=== PATIENT | female | born 1980 | race Native Hawaiian/Other Pacific Islander ===

== ENCOUNTER → 2020-03-31 12:59 | Outpatient (BNVA) | payer OTHER, SELFPAY | PROVIDERS: PCP Internal Medicine; Visit Provider Physician Assistant | DX: E66.9 Obesity, unspecified (principal); Z98.84 Bariatric surgery status | CPT/HCPCS: 99214; Q3014 ==

== ENCOUNTER → 2020-04-07 14:07 | Outpatient (BNVA) | payer OTHER, SELFPAY | PROVIDERS: PCP Internal Medicine; Referring Provider Internal Medicine; Visit Provider Physician Assistant | DX: E66.9 Obesity, unspecified (principal); Z68.36 Body mass index [BMI] 36.0-36.9, adult; Z98.84 Bariatric surgery status | CPT/HCPCS: 99213; Q3014 ==

== ENCOUNTER → 2020-04-08 15:04 | Outpatient (BNVA) | payer OTHER, SELFPAY | PROVIDERS: PCP Internal Medicine; Visit Provider Physician Assistant | DX: Z76.89 Persons encountering health services in other specified circumstances (principal) ==

== ENCOUNTER → 2020-04-26 10:10 | Outpatient (BNVA) | payer OTHER, SELFPAY | PROVIDERS: PCP Internal Medicine; Visit Provider Physician Assistant | DX: Z01.89 Encounter for other specified special examinations (principal) | CPT/HCPCS: 99211 ==

== ENCOUNTER → 2020-05-17 09:32 | Outpatient (BNVA) | payer OTHER, SELFPAY | PROVIDERS: PCP Internal Medicine; Referring Provider Internal Medicine; Visit Provider Physician Assistant | DX: Z76.89 Persons encountering health services in other specified circumstances (principal) ==

== ENCOUNTER → 2020-05-25 09:04 | Outpatient (BNVA) | payer OTHER, SELFPAY | PROVIDERS: PCP Internal Medicine; Visit Provider Physician Assistant | DX: Z76.89 Persons encountering health services in other specified circumstances (principal) ==

== ENCOUNTER 2020-08-03 10:51 | Outpatient (REF) | payer OTHER, SELFPAY ==
--- NOTE | 2020-08-03 11:07 | XR_ITS ---
EXAMINATION: X-RAY BILATERAL KNEES ONE VIEW. X-RAY RIGHT KNEE CLINICAL INFORMATION: Pain. COMPARISON: None. TECHNIQUE: X-ray bilateral knees 1 view. X-ray right knee 2 views. FINDINGS: Right Knee: Borderline medial compartment joint space narrowing. No visible acute fracture or dislocation. Marginal spurring in the patella. Multiple small ossifications along the lateral aspect of the patellofemoral joint, as seen on the skyline view. Small ossification present posteriorly near the fibular head, prominent loose body. Small suprapatellar joint fluid. Left Knee: Mild medial compartment joint space narrowing. Cluster of small calcifications/ossifications adjacent to the medial femoral condyle. No acute fracture is seen. XR/XR knee RT 2V IMPRESSION: RIGHT KNEE: 1. Mild medial and patellofemoral compartment arthritis. 2. Small joint fluid. 3. Multiple loose bodies. 4. No evidence of acute fracture or dislocation. LEFT KNEE: 1. Mild medial compartment arthritis. 2. Cluster of small calcifications/ossifications adjacent to the medial femoral condyle.
--- NOTE | 2020-08-03 11:07 | XR_ITS ---
EXAMINATION: X-RAY BILATERAL KNEES ONE VIEW. X-RAY RIGHT KNEE CLINICAL INFORMATION: Pain. COMPARISON: None. TECHNIQUE: X-ray bilateral knees 1 view. X-ray right knee 2 views. FINDINGS: Right Knee: Borderline medial compartment joint space narrowing. No visible acute fracture or dislocation. Marginal spurring in the patella. Multiple small ossifications along the lateral aspect of the patellofemoral joint, as seen on the skyline view. Small ossification present posteriorly near the fibular head, prominent loose body. Small suprapatellar joint fluid. Left Knee: Mild medial compartment joint space narrowing. Cluster of small calcifications/ossifications adjacent to the medial femoral condyle. No acute fracture is seen. XR/XR knee standing BI IMPRESSION: RIGHT KNEE: 1. Mild medial and patellofemoral compartment arthritis. 2. Small joint fluid. 3. Multiple loose bodies. 4. No evidence of acute fracture or dislocation. LEFT KNEE: 1. Mild medial compartment arthritis. 2. Cluster of small calcifications/ossifications adjacent to the medial femoral condyle.
== END 2020-08-03 10:52 | disposition home or self-care (01) ==
LOC: HO.HOSX 10:51
PROVIDERS: Visit Provider Orthopaedic Surgery
DX: M25.361 Other instability, right knee (principal); M25.362 Other instability, left knee
CPT/HCPCS: 73560; 73565; 99202

== ENCOUNTER → 2020-08-09 09:28 | Outpatient (BNVA) | payer OTHER, SELFPAY | PROVIDERS: PCP Internal Medicine; Visit Provider Physician Assistant | DX: E66.9 Obesity, unspecified (principal) | CPT/HCPCS: 99212 ==

== ENCOUNTER 2020-08-20 08:34 | Outpatient (REF) | payer OTHER, SELFPAY ==
--- NOTE | ~2020-08-20 | XR_ITS ---
EXAMINATION: RIGHT HIP AND THORACIC SPINE X-RAY CLINICAL INFORMATION: Pain. Constipation. COMPARISON: None TECHNIQUE: 2 views of the right hip and 2 views of the thoracic spine FINDINGS: Right hip: Bone alignment is normal. No fracture or dislocation is seen. There is an IUD in the pelvis. Soft tissues are otherwise unremarkable. Thoracic spine: There is mild curvature of the midthoracic spine to the right. Bone alignment is otherwise normal. No fracture or dislocation is seen. Disc spaces are normal. There is mild degenerative spondylosis of the lower thoracic spine. The lung volumes are low. There is a gastric lap band. The paraspinal soft tissues are unremarkable. XR/XR thoracic spine 2V IMPRESSION: Right hip: Unremarkable exam. Thoracic spine: Mild curvature of the midthoracic spine to the right and mild degenerative spondylosis of the lower thoracic spine.
--- NOTE | ~2020-08-20 | XR_ITS ---
EXAMINATION: RIGHT HIP AND THORACIC SPINE X-RAY CLINICAL INFORMATION: Pain. Constipation. COMPARISON: None TECHNIQUE: 2 views of the right hip and 2 views of the thoracic spine FINDINGS: Right hip: Bone alignment is normal. No fracture or dislocation is seen. There is an IUD in the pelvis. Soft tissues are otherwise unremarkable. Thoracic spine: There is mild curvature of the midthoracic spine to the right. Bone alignment is otherwise normal. No fracture or dislocation is seen. Disc spaces are normal. There is mild degenerative spondylosis of the lower thoracic spine. The lung volumes are low. There is a gastric lap band. The paraspinal soft tissues are unremarkable. XR/XR hip RT min 2V IMPRESSION: Right hip: Unremarkable exam. Thoracic spine: Mild curvature of the midthoracic spine to the right and mild degenerative spondylosis of the lower thoracic spine.
[2020-08-20 09:42] LABS: MANUAL DIFF FLAG NO
[2020-08-20 09:48] LABS: Basophils Percent Auto 0.3 % (0-2); Eosinophils Absolute Auto 0.1 X10*3/uL (0.0-0.4); Eosinophils Percent Auto 1.6 % (0-4); Hematocrit 39.9 % (37-47); Hemoglobin 13.5 g/dl (12.0-16.0); Imm Gran Abs Auto 0.01 X10*3/uL (0.00-0.03); Imm Gran Pct Auto 0.2 % (0.0-0.4); Lymphocytes Absolute Auto 2.6 X10*3/uL (1.2-4.9); Lymphocytes Percent Auto 41.1 % (20-40); Mean Corpuscular HGB Conc 33.8 g/dl (31.0-35.0); Mean Corpuscular Hemoglobin 30.2 pg (27.0-33.0); Mean Corpuscular Volume 89.3 fL (80-98); Mean Platelet Volume 9.9 fL (9.4-12.3); Monocytes Absolute Auto 0.5 X10*3/uL (0.1-1.2); Monocytes Percent Auto 8.1 % (2-11); Neutrophils Percent Auto 48.7 % (45-73); Platelet Count 261 X10*3/uL (160-400); Red Blood Count 4.47 X10*6/uL (4.20-5.50); Red Cell Distribution Width 12.2 % (11.0-16.0); White Blood Count 6.2 X10*3/uL (4.8-10.8)
[2020-08-20 10:24] LABS: Alanine Aminotransferase 21 U/L (0-31); Albumin Level 4.1 g/dL (3.5-5.0); Alkaline Phosphatase 51 U/L (39-117); Anion Gap 12 (12-20); Aspartate Amino Transferase 15 U/L (5-31); Bilirubin Total 0.7 mg/dL (0.0-1.0); Blood Urea Nitrogen 12 mg/dL (9-16); Carbon Dioxide 29 mmol/L (22-29); Chloride 103 mmol/L (96-108); Cholesterol 162 mg/dL; Estimated Glomerular Filt Rate > 60; Glucose Random 87 mg/dL (60-115); HDL Cholesterol 48 mg/dL; LDL Cholesterol Calculated 100 mg/dl; Potassium 3.9 mmol/L (3.3-5.1); Sodium 140 mmol/L (135-145); Total Protein 6.8 g/dL (6.5-8.0); Triglycerides 73 mg/dL
[2020-08-20 10:47] LABS: Thyroid Stimulating Hormone 1.41 uIU/mL (0.32-4.0); Vitamin D 25-OH Total 19.7 ng/mL (>30)
[2020-08-20 10:51] LABS: Erythrocyte Sedimentation Rate 13 MM/HR (0-20)
[2020-08-22 04:29] LABS: Folate 16.8 ng/mL (> or = 4.0); Vitamin B12 215 pg/mL (200-900)
== END 2020-08-20 08:35 | disposition home or self-care (01) ==
LOC: HO.LAB 08:34
PROVIDERS: PCP Internal Medicine; Visit Provider Internal Medicine
DX: K59.00 Constipation, unspecified (principal); E78.00 Pure hypercholesterolemia, unspecified
CPT/HCPCS: 36415; 72070; 73502; 80053; 80061; 82306; 82607; 82746; 84439; 84443; 85025; 85652

== ENCOUNTER 2020-08-30 10:08 | Emergency (ER) | payer OTHER, SELFPAY ==
--- NOTE | ~2020-08-30 | XR_ITS ---
EXAMINATION: XR LUMBOSACRAL SPINE CLINICAL INFORMATION: Pain COMPARISON: None TECHNIQUE: Lumbar spine is imaged in 4 views. FINDINGS: There is normal lumbar segmentation with 5 nonrib-bearing lumbar vertebrae of normal height and normal lumbar lordosis. There is no lumbar vertebral compression, spondylolisthesis, destructive process, or paraspinal soft tissue swelling. There is borderline disc narrowing L3-L4. Lateral view may suggest L5 spondylolysis. The SI joints and visualized sacrum are unremarkable. There are surgical clips right upper quadrant likely from prior cholecystectomy. In addition, gastric lap band is present. XR/XR lumbar spine 2-3V IMPRESSION: 1. Borderline disc narrowing L3-L4. 2. No lumbar vertebral compression or spondylolisthesis. 3. Possible L5 spondylolysis.
[2020-08-30 10:12] VITALS: BP 129/79; PULSE 74; RESP 16; TEMP 36.6; O2SAT 98; BMI 42.7
--- NOTE | 2020-08-30 11:40 | ED_ITS ---
HPI - Back Pain/Injury General Chief Complaint: Back Pain/Injury Stated Complaint: back pain going down leg Time Seen by Provider: 08/30/20 11:38 Source: patient and old records reviewed Mode of arrival: ambulatory Limitations: no limitations History of Present Illness HPI Narrative: R sided back pain has had issues x 2 days atraumatic R lower back pain radiates down to buttock - no b/b incontinence, no saddle anesthesia, no IVDA, no AC therapy MD elicited complaint: back pain Pertinent past history: prior back pain Onset (ago): day(s) (1) Timing: constant Severity: moderate Quality: sharp Location: lumbar spine and sacrum Radiation: buttocks and right upper leg Relieving factors: movement Associated symptoms: denies other symptoms Related Data Home Medications Medication Instructions Recorded Confirmed albuterol sulfate 90 mcg/actuation 1 puff INHALATION QID 03/29/20 08/18/20 aerosol inhaler cetirizine 10 mg capsule 10 mg PO DAILY 03/29/20 08/18/20 cholecalciferol (vitamin D3) 50 50 mcg PO DAILY 03/29/20 08/18/20 mcg (2,000 unit) capsule multivitamin 1 tab PO DAILY 03/29/20 08/18/20 zinc 50 mg tablet 50 mg PO DAILY 03/29/20 08/18/20 Previous Rx's Medication Instructions Recorded fluticasone 250 mcg-salmeterol 50 1 inh INHALATION BID #60 ea 08/18/20 mcg/dose blistr powdr for inhalation psyllium husk (aspartame) 3.4 2.69456 g PO DAILY #660 g 08/18/20 gram/5.8 gram oral powder cyclobenzaprine 10 mg PO TID PRN #14 tab 08/30/20 ibuprofen 600 mg PO Q6H PRN #30 tab 08/30/20 lidocaine 1 patch TOPICAL DAILY PRN #10 ea 08/30/20 prednisone 40 mg PO DAILY 4 Days #8 tab 08/30/20 Allergies Allergy/AdvReac Type Severity Reaction Status Date / Time seafood Allergy Unknown swelling/hi Verified 08/18/20 16:52 ves shellfish derived Allergy Unknown HIVES,SWELL Verified 08/18/20 16:52 [SHELLFISH DERIVED] ING dust mites Allergy Unknown Rash Uncoded 08/18/20 16:52 Latex Allergy Unknown Rash Uncoded 08/18/20 16:52 pollen Allergy Unknown Sneezing Uncoded 08/18/20 16:52 shellfish Allergy Unknown Hives Uncoded 08/18/20 16:52 Review of Systems Review of Systems: Constitutional : No Weight loss, No Fever, No Chills, ENT/Mouth : No Hearing loss, No Ear Pain, No Nasal Congestion, No Sinus Pain, No Hoarseness, No sore throat, No Rhinorrhea, No Swallowing Difficulty Cardiovascular : No Chest Pain, No SOB Respiratory : No Cough, No Dyspnea Gastrointestinal : No Nausea, No Vomiting, No Diarrhea, No abdominal Pain, No Hematochezia, No Melena Genitourinary : No Dysuria, No Urinary Frequency, No Hematuria, No Urinary Incontinence, Musculoskeletal : positive back pain Skin : No Skin Lesions, No rash Neuro : No Weakness, No Numbness, No Paresthesias, no loss of bowel or bladder incontinence, no saddle anesthesia PMFSH Past Medical History Attestation statement: The following information was validated with the patient. Medical History Anxiety and depression Carpal tunnel syndrome, right Depression Gestational diabetes H. pylori duodenitis Iron deficiency anemia Talar fracture Ulnar neuropathy Vitamin D deficiency Surgical History H/O: Hx laparoscopic cholecystectomy Hx of laparoscopic gastric banding Family History Family History (Updated 08/18/20 @ 16:55 by Flores Cesar MD) Father Diabetes HTN (hypertension) AA (alcohol abuse) Stomach ulcer Cirrhosis Substance abuse Mother No problems noted. 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 Oriented X3. No acute distress. Eyes: Pupils equal, round and reactive to light. ENT: Pharynx normal. Neck: Normal inspection. Neck supple. CVS: Normal heart rate and rhythm. Pulses normal. Respiratory: No respiratory distress. Breath sounds normal. Abdomen: Soft and nontender. Back: R lower lateral lumbar pain ttp over R buttock, patient in til position Skin: Skin warm and dry. Normal skin color. Normal skin turgor. Extremities: No lower extremity edema. No calf ttp Neuro: Oriented X 3. No motor deficit. No sensory deficit. MDM - Back Pain/Injury MDM Narrative Medical decision making narrative: 40 yo female with hx of recent joint pain c/o nontraumatic R sided back pain radiating down to leg, no b/b incontinence, no saddle anesthesia, no IVDA, no AC therapy likely sciatica start on NSAIDs, lidocaine patch, steroids, muscle relaxers, discussed PT and chiropractor Discharge Plan Discharge Clinical Impression: Sciatica Qualifiers: Laterality: right Qualified Code(s): M54.31 - Sciatica, right side Patient Disposition: Home, Self-Care Instructions: Sciatica (ED) Additional Instructions: return to ED for any worsening symptoms or concerns YOU SHOULD SEE A CHIROPRACTOR xray findings: FINDINGS: There is normal lumbar segmentation with 5 nonrib-bearing lumbar vertebrae of normal height and normal lumbar lordosis. There is no lumbar vertebral compression, spondylolisthesis, destructive process, or paraspinal soft tissue swelling. There is borderline disc narrowing L3-L4. Lateral view may suggest L5 spondylolysis. The SI joints and visualized sacrum are unremarkable. There are surgical clips right upper quadrant likely from prior cholecystectomy. In addition, gastric lap band is present. XR/XR lumbar spine 2-3V IMPRESSION: 1. Borderline disc narrowing L3-L4. 2. No lumbar vertebral compression or spondylolisthesis. 3. Possible L5 spondylolysis. Prescriptions: New cyclobenzaprine 10 mg tablet 10 mg PO TID PRN (Reason: muscle spasm) Qty: 14 RF: 0 lidocaine 4 % adhesive patch,medicated 1 patch topical DAILY PRN (Reason: pain) Qty: 10 RF: 0 ibuprofen 600 mg tablet 600 mg PO Q6H PRN (Reason: pain) Qty: 30 RF: 0 prednisone 20 mg tablet 40 mg PO DAILY 4 Days Qty: 8 RF: 0 No Action fluticasone propion-salmeterol [Advair Diskus] 250-50 mcg/dose blister with device 1 inh inhalation BID Qty: 60 RF: 5 Metamucil [facility] Fiber 3.4 gram/5.8 gram powder 2.06842 g PO DAILY Qty: 660 RF: 3 multivitamin Tablet 1 tab PO DAILY RF: 0 Zyrtec 10 mg capsule 10 mg PO DAILY RF: 0 cholecalciferol (vitamin D3) 50 mcg (2,000 unit) capsule 50 mcg PO DAILY RF: 0 zinc 50 mg tablet 50 mg PO DAILY RF: 0 albuterol sulfate [ProAir HFA] 90 mcg/actuation HFA aerosol inhaler 1 puff inhalation QID RF: 0 Stand Alone Forms: Work/School Release
[2020-08-30] MEDS: Cyclobenzaprine HCl 10 MG TABLET PO (12:05)
[2020-08-30] MEDS: predniSONE 20 MG TABLET 60 MG PO (12:05)
[2020-08-30] MEDS: Ketorolac Tromethamine 60 MG/2 ML VIAL IM (12:06)
== END 2020-08-30 12:22 | disposition home or self-care (01) ==
PROVIDERS: Emergency Provider Emergency Medicine; PCP Internal Medicine
DX: M54.31 Sciatica, right side (principal); M79.661 Pain in right lower leg
CPT/HCPCS: 72100; 96372; 99283; J1885

== ENCOUNTER 2020-09-01 12:48 | Outpatient (REF) | payer OTHER, SELFPAY ==
[2020-09-01 13:51] LABS: Glucose Urine UA NEG (NEG); Leukocyte Esterase Urine NEG (NEG); Nitrite Urine NEG (NEG); Urine Blood 3+ (NEG); Urine Ketones NEG (NEG); Urine Protein NEG (NEG-TRACE)
[2020-09-01 13:54] LABS: Appearance Urine CLEAR; Color Urine STRAW
[2020-09-01 14:06] LABS: Amorphous Sediment Urine 2+ /LPF; Bacteria Urine TRACE /LPF; Squamous Epithelial Cell Urine 3+ /LPF; WBC Urine 0 /HPF (0-4)
== END 2020-09-01 12:49 | disposition home or self-care (01) ==
LOC: HO.LAB 12:48
PROVIDERS: PCP Internal Medicine; Visit Provider Internal Medicine
DX: R39.89 Other symptoms and signs involving the genitourinary system (principal)
CPT/HCPCS: 81001

== ENCOUNTER 2020-09-02 08:59 | Outpatient (REF) | payer OTHER, SELFPAY ==
--- NOTE | ~2020-09-02 | XR_ITS ---
EXAMINATION: XR ABDOMEN KUB CLINICAL INDICATION: Other symptoms and signs involving the genitourinary system COMPARISON: None TECHNIQUE: AP view of the abdomen. FINDINGS: There is a gastric lap band. Phi angle measures 45 degrees which is normal. There is a 4 mm radiopaque density projecting over the medial lower pole of the right kidney questionable for a stone. There are small bilateral pelvic calcifications. These may represent calcified phleboliths. There is an IUD in the pelvis. There is evidence of previous cholecystectomy. Bowel gas pattern is normal. There is no free air. Bony structures are normal. XR/XR KUB IMPRESSION: Question right lower pole renal stone. Gastric lap band. IUD.
== END 2020-09-02 09:00 | disposition home or self-care (01) ==
LOC: HO.XRAY 08:59
PROVIDERS: PCP Internal Medicine; Visit Provider Surgery
DX: R39.89 Other symptoms and signs involving the genitourinary system (principal)
CPT/HCPCS: 74018

== ENCOUNTER 2020-09-19 16:21 | Outpatient (REF) | payer OTHER, SELFPAY ==
--- NOTE | ~2020-09-19 | US_ITS ---
EXAMINATION: US RETROPERITONEAL LIMITED (RENAL ONLY) CLINICAL INFORMATION: Calculus of kidney. COMPARISON: X-ray abdomen KUB 09/02/2020. CT abdomen 08/26/2007. TECHNIQUE: Real-time imaging of the kidneys. FINDINGS: RIGHT KIDNEY: 11.5 x 6.3 x 5.6 cm (SAG x AP x TRV). The kidney is normal in size, contour, and echogenicity. Renal cortical thickness is normal. No focal parenchymal lesions or hydronephrosis. There is a nonobstructive echogenic stone lower pole measuring 0.2 x 0.2 cm LEFT KIDNEY: 11.7 x 5.1 x 5.9 cm (SAG x AP x TRV). The kidney is normal in size, contour, and echogenicity. Renal cortical thickness is normal. No focal parenchymal lesions or hydronephrosis. There is an echogenic midpole stone measuring 0.2 x 0.2 cm. A few scattered echogenic foci with twinkle artifacts seen in the upper pole. US/US renal BI IMPRESSION: Nonobstructive bilateral small renal calculi. No hydronephrosis seen.
== END 2020-09-19 16:22 | disposition home or self-care (01) ==
LOC: HO.US 16:21
PROVIDERS: PCP Internal Medicine; Visit Provider Internal Medicine
DX: N20.0 Calculus of kidney (principal)
CPT/HCPCS: 76775

== ENCOUNTER → 2020-09-26 14:21 | Outpatient (BNVA) | payer OTHER, SELFPAY | PROVIDERS: PCP Internal Medicine; Visit Provider Surgery | DX: E66.9 Obesity, unspecified (principal); Z68.38 Body mass index [BMI] 38.0-38.9, adult | CPT/HCPCS: 99212 ==

== ENCOUNTER → 2020-09-28 09:51 | Outpatient (BNVA) | payer OTHER, SELFPAY | PROVIDERS: PCP Internal Medicine; Visit Provider Urology | DX: Z13.89 Encounter for screening for other disorder (principal) | CPT/HCPCS: 99202 ==

== ENCOUNTER 2020-09-29 16:00 | Outpatient (RCR) | payer OTHER, SELFPAY ==
--- NOTE | 2020-08-18 19:54 | MHC.PT.EP ---
[facility] [place] Office [place] Office [place] Office [address] Fidencio Hutchison [address] [phone] F: [phone] F: [phone] F: [phone] F: [phone] Physical Therapy Plan of Care Date of Evaluation: 08/18/20 Date of Surgery: Diagnosis: B knee instability Assessment: Pt is a 40 y/o female [employer] referred to PT for eval and treat of B knee instability following long Hx of B knee pain resulting in decreased tolerance for squatting activities, negotiating stairs, performing fitness activities for her healthy weight loss goals, performing heavy HH chores, standing and walking for increased duration as well as 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 Pt is deemed an appropriate candidate to receive skilled PT in order to address her physical limitations to improve her functional ability. Frequency and Duration: The patient will be seen 2 x / wk x 6 wks. Short Term Goals: In 1 week: initiate HEP with evidence of compliance. In 3 weeks: improve baseline pain with activity to < 4/10, initial 7/10. Fdc Goals: In 6 weeks: improve B knee extension MMT to > 4+/5, initial: 4/5 limited by pain. In 6 week: Pt will be able to perform heavy HH chores with at most a little bit of difficulty; initial: quite a bit of difficulty (LEFI). \ In 6 weeks: I with HEP. In 6 weeks: improve B glute medius MMT to > 4+/5, initial 4/5. Treatment Plan: Modalities to reduce pain, spasms and effusion. Manual therapy to restore motion and function. Therapeutic exercise to improve strength and flexibility. Neuromuscular re-education for posture and balance. Therapeutic activities to return to functional activities of daily living. Electronically signed by: Dave Rapp PT. Please sign and return to therapist. Thank you for your referral.
--- NOTE | 2020-09-29 18:10 | MHC.PT.DC ---
Addendum entered and electronically signed by Dave Rapp PT 09/29/20 18:14: Note: Lower Extremity Functional Index questionnaire improved from 49% subjective ability on evaluation to 92% at [facility]. Original Note: [facility] Office [place] Office [place] Office [address] Fidencio Hutchison 140 [facility] [phone] F: [phone] F: [phone] F: [phone] F: [phone] Physical Therapy Discharge Report Diagnosis: B knee instability Date of Surgery: Date of Evaluation: 08/18/20 Date of Discharge: 09/29/20 Treatments to Date: 12 Cancellations to Date: 0 No Shows to Date: 0 Discharge Status: Achieved Goals Improved Function Independent with HEP Discharge Summary: Jodi has been an active and motivated participant in therapy for her B knee instability even through bouts of hip and back (kidney) pain as appropriate. She has met all of her therapeutic goals, is I with her home program, and is in agreement with NC at this time. Electronically signed by: Dave Rapp PT. Please sign and return to therapist. Thank you for your referral.
== END 2020-09-30 07:53 | disposition home or self-care (01) ==
LOC: HO.PTCHIC 16:00
PROVIDERS: PCP Internal Medicine; Visit Provider Orthopaedic Surgery
DX: M25.361 Other instability, right knee (principal); M25.362 Other instability, left knee
CPT/HCPCS: 97110; 97112; 97140; 97161

== ENCOUNTER → 2020-10-14 15:46 | Outpatient (BNVA) | payer OTHER, SELFPAY | PROVIDERS: PCP Internal Medicine; Visit Provider Surgery | DX: E66.9 Obesity, unspecified (principal); Z68.37 Body mass index [BMI] 37.0-37.9, adult | CPT/HCPCS: 99212 ==

== ENCOUNTER → 2020-11-03 15:28 | Outpatient (BNVA) | payer OTHER, SELFPAY | PROVIDERS: PCP Internal Medicine; Visit Provider Surgery | DX: E66.9 Obesity, unspecified (principal); Z68.37 Body mass index [BMI] 37.0-37.9, adult | CPT/HCPCS: 99212 ==

== ENCOUNTER → 2020-11-18 11:01 | Outpatient (BNVA) | payer OTHER, SELFPAY | PROVIDERS: PCP Internal Medicine; Referring Provider Internal Medicine; Visit Provider Physician Assistant | DX: E66.9 Obesity, unspecified (principal); Z68.37 Body mass index [BMI] 37.0-37.9, adult | CPT/HCPCS: 99212 ==

== ENCOUNTER → 2020-11-29 08:14 | Outpatient (BNVA) | payer OTHER, SELFPAY | PROVIDERS: PCP Internal Medicine; Visit Provider Dietitian, Registered | DX: E66.9 Obesity, unspecified (principal) | CPT/HCPCS: 97803 ==

== ENCOUNTER → 2020-12-02 13:28 | Outpatient (BNVA) | payer OTHER, SELFPAY | PROVIDERS: PCP Internal Medicine; Visit Provider Physician Assistant ==

== ENCOUNTER → 2020-12-09 12:54 | Outpatient (BNVA) | payer OTHER, SELFPAY | PROVIDERS: PCP Internal Medicine; Referring Provider Internal Medicine; Visit Provider Physician Assistant ==

== ENCOUNTER → 2020-12-16 13:38 | Outpatient (BNVA) | payer OTHER, SELFPAY | PROVIDERS: PCP Internal Medicine; Visit Provider Physician Assistant ==

== ENCOUNTER 2020-12-19 15:15 | Outpatient (REF) | payer OTHER, SELFPAY ==
[2020-12-19 17:54] LABS: MANUAL DIFF FLAG NO
[2020-12-19 17:57] LABS: Basophils Percent Auto 0.4 % (0-2); Eosinophils Absolute Auto 0.1 X10*3/uL (0.0-0.4); Eosinophils Percent Auto 1.9 % (0-4); Hematocrit 39.4 % (37-47); Hemoglobin 13.6 g/dl (12.0-16.0); Imm Gran Abs Auto 0.02 X10*3/uL (0.00-0.03); Imm Gran Pct Auto 0.3 % (0.0-0.4); Lymphocytes Absolute Auto 3.1 X10*3/uL (1.2-4.9); Lymphocytes Percent Auto 43.9 % (20-40); Mean Corpuscular HGB Conc 34.5 g/dl (31.0-35.0); Mean Corpuscular Hemoglobin 30.6 pg (27.0-33.0); Mean Corpuscular Volume 88.5 fL (80-98); Mean Platelet Volume 10.6 fL (9.4-12.3); Monocytes Absolute Auto 0.6 X10*3/uL (0.1-1.2); Monocytes Percent Auto 7.9 % (2-11); Neutrophils Absolute Auto 3.2 X10*3/uL (2.0-8.3); Neutrophils Percent Auto 45.6 % (45-73); Platelet Count 233 X10*3/uL (160-400); Red Blood Count 4.45 X10*6/uL (4.20-5.50); Red Cell Distribution Width 12.7 % (11.0-16.0)
[2020-12-19 18:01] LABS: INTERNATIONAL NORM RATIO 0.9 (0.9-1.1); Prothrombin Time 11.2 SEC (10.8-13.0)
[2020-12-19 18:04] LABS: Partial Thromboplastin Time 35.2 SEC (24.1-38.0)
[2020-12-19 18:08] LABS: Glucose Urine UA NEG (NEG); Leukocyte Esterase Urine NEG (NEG); Nitrite Urine NEG (NEG); Urine Blood TRACE (NEG); Urine Ketones NEG (NEG); Urine Protein NEG (NEG-TRACE)
[2020-12-19 18:09] LABS: Appearance Urine CLEAR; Color Urine YELLOW
[2020-12-19 18:12] LABS: UPreg QC Valid YES; Urine Pregnancy NEGATIVE (NEGATIVE)
[2020-12-19 18:19] LABS: Bacteria Urine TRACE /LPF; RBC Urine 0-2 /HPF (0); Squamous Epithelial Cell Urine TRACE /LPF; WBC Urine 0 /HPF (0-4)
[2020-12-19 18:22] LABS: Albumin Level 4.2 g/dL (3.5-5.0); Anion Gap 12 (12-20); Blood Urea Nitrogen 9 mg/dL (9-16); Carbon Dioxide 27 mmol/L (22-29); Chloride 106 mmol/L (96-108); Estimated Glomerular Filt Rate > 60; Glucose Random 73 mg/dL (60-115); Potassium 3.5 mmol/L (3.3-5.1); Sodium 141 mmol/L (135-145)
== END 2020-12-19 15:16 | disposition home or self-care (01) ==
LOC: HO.LAB 15:15
PROVIDERS: PCP Internal Medicine; Visit Provider Surgery
DX: Z01.818 Encounter for other preprocedural examination (principal); R06.02 Shortness of breath; E66.9 Obesity, unspecified; Z79.899 Other long term (current) drug therapy; Z68.36 Body mass index [BMI] 36.0-36.9, adult
CPT/HCPCS: 36415; 80048; 81001; 81025; 82040; 85025; 85610; 85730; 99212

== ENCOUNTER 2020-12-28 12:35 | Inpatient (IN) | payer OTHER, SELFPAY ==
[2020-12-19 10:53] VITALS: BMI 35.7
--- NOTE | 2020-12-20 07:52 | ECG_ITS ---
Test Reason : SOB Blood Pressure : / mmHG Vent. Rate : 062 BPM Atrial Rate : 062 BPM P-R Int : 158 ms QRS Dur : 090 ms QT Int : 410 ms P-R-T Axes : 026 021 025 degrees QTc Int : 416 ms Normal sinus rhythm Normal ECG When compared with ECG of 03-SEP-2019 08:59, No significant change was found Referred By: Jazz Alonso Electronically Signed By:Ishmael Savage
--- NOTE | 2020-12-27 09:32 | HO.ANESPROP2 ---
Documented by User: Eden Chery 12/27/20 09:35 HPI - Anesthesia Eval Consult details Narrative: 40yo F for Laparosopic Lap Band Removal with Conversion to Gastric Sleeve PMFSH Active Problems Active Problems: All Active Problems (Updated 12/19/20 @ 16:20 by Jazz Alonso MD) Obesity (BMI 30-39.9) (Acute) BMI 36.0-36.9,adult (Acute) Shortness of breath (Acute) BMI 38.0-38.9,adult (Acute) Preoperative examination (Acute) GERD (gastroesophageal reflux disease) (Acute) Asthma (Acute) Migraines (Acute) Patellar instability of both knees (Acute) Constipation (Acute) Polyarthralgia (Acute) Dark yellow-colored urine (Acute) Right renal stone (Acute) Vitamin B 12 deficiency (Acute) Bilateral nephrolithiasis (Acute) BMI 37.0-37.9, adult (Acute) Adjustment disorder, unspecified (Acute) Vitamin D deficiency (Acute) Anxiety and depression (Acute) Past Medical History Medical History Anxiety and depression Asthma Carpal tunnel syndrome, right GERD (gastroesophageal reflux disease) Gestational diabetes H. pylori duodenitis Iron deficiency anemia Migraines Polyarthralgia Talar fracture Ulnar neuropathy Vitamin D deficiency Family History Family History Father Diabetes HTN (hypertension) AA (alcohol abuse) Stomach ulcer Cirrhosis Substance abuse Mother No problems noted. Sister Diabetes Substance abuse Bipolar 1 disorder Brother Diabetes Glaucoma Substance abuse Bipolar 1 disorder Daughter Asthma Chronic eczema Maternal Grandmother Myocardial infarct Bipolar 1 disorder Paternal Grandfather Myocardial infarct Paternal Uncle Substance abuse Surgical History Surgical History H/O: Hx laparoscopic cholecystectomy Hx of laparoscopic gastric banding Social History Social History Are you a primary direct care counselor to a significant other at home: No Do you presently have visiting nurse or other home services: No Alcohol intake: current Alcohol intake frequency: does not drink Patient Tobacco Use Status: Never used Tobacco Use of substances other than those prescribed or required for medical reasons: No Current occupational status: employed 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 Allergies Allergy/AdvReac Type Severity Reaction Status Date / Time seafood Allergy Unknown swelling/hi Verified 12/28/20 08:10 ves shellfish derived Allergy Unknown HIVES,SWELL Verified 12/28/20 08:10 [SHELLFISH DERIVED] ING dust mites Allergy Unknown Rash Uncoded 12/19/20 16:16 Latex Allergy Unknown Rash Uncoded 12/19/20 16:16 pollen Allergy Unknown Sneezing Uncoded 12/19/20 16:16 Home Medications Medication Instructions Recorded Confirmed Last Taken Type cetirizine 10 mg capsule 10 mg PO DAILY 03/29/20 12/19/20 Unknown History multivitamin 1 tab PO DAILY 03/29/20 12/19/20 12/11/20 History zinc 50 mg tablet 50 mg PO DAILY 03/29/20 12/19/20 12/11/20 History albuterol sulfate 90 mcg/actuation 1 puff INHALATION QID PRN 09/26/20 12/19/20 Unknown History aerosol inhaler epinephrine 0.3 mg/0.3 mL 1 IM DIRECTED 09/28/20 12/19/20 Unknown History injection, auto-injector Exam Exam Date and Time: December 27, 2020 0932 Height,Weight and Vital Signs: Height 5 ft 3 in Weight 91.626 kg Pertinent Lab Results Pertinent Lab Results: Laboratory Tests 12/19/20 16:59 Blood Type O Positive Antibody Screen NEGATIVE Laboratory Tests 12/19/20 12/19/20 16:53 16:53 WBC 7.0 Hgb 13.6 Hct 39.4 Plt Count 233 Sodium 141 Potassium 3.5 Chloride 106 Carbon Dioxide 27 BUN 9 Creatinine 0.62 Laboratory Tests 12/19/20 16:53 Urine Test NEGATIVE Narrative Narrative: EKG 11/2020 Vent. Rate : 062 BPM Atrial Rate : 062 BPM P-R Int : 158 ms QRS Dur : 090 ms QT Int : 410 ms P-R-T Axes : 026 021 025 degrees QTc Int : 416 ms Normal sinus rhythm Normal ECG When compared with ECG of 03-SEP-2019 08:59, No significant change was found Assessment and Plan Assessment Anesthesia Assessment: Chart Reviewed Documented by User: Sophie Rodríguez 12/28/20 09:58 PMFSH Past Medical History Medical History Anxiety and depression Asthma Carpal tunnel syndrome, right GERD (gastroesophageal reflux disease) Gestational diabetes H. pylori duodenitis Iron deficiency anemia Migraines Polyarthralgia Talar fracture Ulnar neuropathy Vitamin D deficiency Family History Family History Father Diabetes HTN (hypertension) AA (alcohol abuse) Stomach ulcer Cirrhosis Substance abuse Mother No problems noted. Sister Diabetes Substance abuse Bipolar 1 disorder Brother Diabetes Glaucoma Substance abuse Bipolar 1 disorder Daughter Asthma Chronic eczema Maternal Grandmother Myocardial infarct Bipolar 1 disorder Paternal Grandfather Myocardial infarct Paternal Uncle Substance abuse Family history of problems with anesthesia: No Surgical History Surgical History H/O: Hx laparoscopic cholecystectomy Hx of laparoscopic gastric banding History of Problems with Anesthesia: No Social History Social History Are you a primary direct care counselor to a significant other at home: No Do you presently have visiting nurse or other home services: No Alcohol intake: current Alcohol intake frequency: does not drink Patient Tobacco Use Status: Never used Tobacco Use of substances other than those prescribed or required for medical reasons: No Current occupational status: employed 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 Allergies Allergy/AdvReac Type Severity Reaction Status Date / Time seafood Allergy Unknown swelling/hi Verified 12/28/20 08:10 ves shellfish derived Allergy Unknown HIVES,SWELL Verified 12/28/20 08:10 [SHELLFISH DERIVED] ING dust mites Allergy Unknown Rash Uncoded 12/19/20 16:16 Latex Allergy Unknown Rash Uncoded 12/19/20 16:16 pollen Allergy Unknown Sneezing Uncoded 12/19/20 16:16 Home Medications Medication Instructions Recorded Confirmed Last Taken Type cetirizine 10 mg capsule 10 mg PO DAILY 03/29/20 12/19/20 Unknown History multivitamin 1 tab PO DAILY 03/29/20 12/19/20 12/11/20 History zinc 50 mg tablet 50 mg PO DAILY 03/29/20 12/19/20 12/11/20 History albuterol sulfate 90 mcg/actuation 1 puff INHALATION QID PRN 09/26/20 12/19/20 Unknown History aerosol inhaler epinephrine 0.3 mg/0.3 mL 1 IM DIRECTED 09/28/20 12/19/20 Unknown History injection, auto-injector Exam Height,Weight and Vital Signs: Vital Signs Temp Pulse Resp BP Pulse Ox 12/28/20 08:19 97.5 F 63 15 112/63 97 Airway Mallampati Class: II TM Dist: >3cm Neck ROM: Full Heart: RRR Lungs: CTAB Assessment and Plan Assessment Anesthesia Assessment: Anesthesia Plan Discussed and Chart Reviewed Final Anesthetic Review NPO: Yes ASA Class: III Final Preanesthetic Review: No Changes in Pt Med Stat, Meds/Allgs Chart Reviewed, Consent Obtained/Reviewed and Anes Risks/Benef Reviewed Patient Risk: Intermediate Procedure Risk: Intermediate Assessment/Block/Sedation in SS: Assess/Block/Sedation-SS Anesthetic Plan Anesthetic Plan: GA Disposition: Standard PACU and Inp. Admit - Standard Bed
--- NOTE | 2020-12-27 16:43 | MHC.SHP ---
Pre-Procedural Eval Section A Date of Service: 12/27/20 Section B Chief Complaint: Obesity Allergies: Allergies Allergy/AdvReac Type Severity Reaction Status Date / Time seafood Allergy Unknown swelling/hi Verified 12/19/20 16:16 ves shellfish derived Allergy Unknown HIVES,SWELL Verified 12/19/20 16:16 [SHELLFISH DERIVED] ING dust mites Allergy Unknown Rash Uncoded 12/19/20 16:16 Latex Allergy Unknown Rash Uncoded 12/19/20 16:16 pollen Allergy Unknown Sneezing Uncoded 12/19/20 16:16 Plan I have reviewed the history and physical and performed a pertinent physical examination on my patient. No changes have occurred unless specified.
[2020-12-28] VITALS (12 sets, daily range): BP systolic 112–149; BP diastolic 61–86; PULSE 63–88; RESP 12–17; TEMP 36.2–37.1; O2SAT 96–99
[2020-12-28 08:23] LABS: UPreg QC Valid YES; Urine Pregnancy NEGATIVE (NEGATIVE)
[2020-12-28 08:35] LABS: COVID-19 Test Negative (Negative)
[2020-12-28] MEDS: Lactated Ringers 1,000 ML 100 ML IVCONT (08:47)
--- NOTE | 2020-12-28 12:36 | PM.OP ---
Brief Operative Note Date of Service: 12/28/20 Pre-op diagnosis: Obesity, BMI 36.8, poor weight loss after gastric banding, current gastric band in place Post-op diagnosis: same Procedure: laparoscopic sleeve gastrectomy, removal of gastric band, Blossom block, and intraoperative endoscopy Implants: covidien tomas Surgeon: Jazz Alonso MD Anesthesia: GETA Was an Industrial Fabric Cutter used for this Procedure?: Yes Industrial Fabric Cutter: Stephani Kearns Estimated blood loss (mL): 10 Pathology: other ( partial gastrectomy) Condition: stable Disposition: PACU
--- NOTE | 2020-12-28 12:38 | W.PM.OPN ---
Operative Note Operative Note Date of Service: 12/28/20 Narrative: Patient was brought into the operating room and placed on the operating room table in the supine position. General anesthesia was induced. Normal DVT prophylaxis was instituted and the patient received 2 grams of cefotetan preoperatively. The abdomen was then prepped and draped in the normal sterile fashion. A safety time-out was performed. A mixture of 1% lidocaine with epinephrine and ?% Marcaine plain was used to anesthetize the planned incision site in the left upper quadrant. A #11 scalpel was used to make a 5 mm left upper quadrant transverse incision through which a veress needle was placed. Three pops were heard going through the fascia. A saline drop test was used to confirm that the veress needle was intraabdominal. An optiview technique was then used to place a 5mm port in the left upper quadrant. A 5 mm 30 degree laproscope was then placed through this port and the abdominal cavity was surveyed and was normal. The patient was placed in reverse Trendelenburg positioning. A rosangela liver retractor was then placed in the subxyphoid position and it was used to hold up the left lobe of the liver to the abdominal wall. This was secured to the bed using the liver retractor zimmerman. A YURIY block was then performed for pain control on the right side of the abdomen. A 5 mm port was placed in the right upper quadrant near the falciform ligament. A 15 mm port was then placed in the mid epigastrium. One additional 5 mm port was placed in the left upper quadrant just to the left of the placement of the first port. I then performed a YURIY block on the left side of the abdomen. I cut the gastric band tubing and unbuckled the gastric band. I removed the gastric band from its tunnel and removed it through the 15 mm port site and passed it off the field. I opened up the previous gastric band tunnel by undoing the previous fundoplication. I then removed the epigastric fat pad; there was no evidence of hiatal hernia. I then opened up the angle of His. We then gained entry into the lesser sac about 4-5 cm from the pylorus. I had anesthesia place a 34 [place] orogastric tube into the distal antrum to use as a sizing tool for gastric pouch size. I divided the short gastric vessels up to the angle of His. We then started the creation of the gastric pouch by firing a 60 mm purple load endostapler up the stomach about 4-5 cm from the pylorus. We completed the creation of the gastric pouch using a total of 4 firings of a 60 mm and 1 firing of a 45 mm purple load stapler. We had anesthesia remove the orogastric tube, then we clamped across the distal antrum using a fired 60 mm endostapler. We flattened the patient and then instilled normal saline surrounding the newly created staple line. I then performed an on-table endoscopy. I passed the gastroscope into the posterior oropharynx and down the esophagus evaluating the esophageal mucosa which was normal. There was no evidence of hiatal hernia. I passed the gastroscope into the gastric pouch and insufflated the gastric pouch. There was healthy pink mucosa and no evidence of active bleeding. There was no evidence of leak on laparoscopy. I desufflated the gastric pouch and removed the endoscope. I removed the endostapler from the abdomen and suctioned the fluid from the left upper quadrant. I then removed the partial gastrectomy specimen through the epigastric 15 mm port site. I then removed the subcutaneous gastric band port through this same incision and passed off the field. I reapproximated the 15 mm port using a 0 maxon suture with a laparoscopic suture passer. I instilled local anesthetic into the fascial closure site and tied the suture down at a pressure of 8-10 mm of Hg. There was no residual fascial defect. We removed the liver retractor and the left upper quadrant 5 mm ports under direct visualization. There was no evidence of any active bleeding. I desufflated the abdomen through the last remaining port and removed the laparoscope an d 5 mm port. We reapproximated all incisions with a 4-0 monocryl subcuticular stitch. We cleaned and dried the abdominal skin and applied dermabond skin glue. All count were correct at the end of the case. The patient was awake and in stable condition prior to extubation and transfer to the recovery room.
--- NOTE | 2020-12-28 12:41 | P.DS_ITS ---
DS: Providers Provider Date of Service: 12/29/20 Primary care physician: Flores Cesar MD DS: Medications Discharge Medications Home Medications: Home Medications Medication Instructions Recorded Confirmed cetirizine 10 mg capsule 10 mg PO DAILY 03/29/20 12/19/20 multivitamin 1 tab PO DAILY 03/29/20 12/19/20 zinc 50 mg tablet 50 mg PO DAILY 03/29/20 12/19/20 albuterol sulfate 90 mcg/actuation 1 puff INHALATION QID PRN 09/26/20 12/19/20 aerosol inhaler epinephrine 0.3 mg/0.3 mL 1 IM DIRECTED 09/28/20 12/19/20 injection, auto-injector Previous Rx's Medication Instructions Recorded ibuprofen 600 mg PO Q6H PRN #30 tab 08/30/20 cholecalciferol (vitamin D3) 50 50 mcg PO DAILY #90 cap 09/06/20 mcg (2,000 unit) capsule cyanocobalamin (vitamin B-12) 1,000 mcg PO DAILY #90 cap 09/06/20 1,000 mcg capsule pyridoxine (vitamin B6) 100 mg 100 mg PO DAILY #90 tab 09/28/20 tablet acetaminophen 500 mg tablet 1,000 mg PO Q6H PRN #30 tab 12/19/20 docusate sodium 100 mg capsule 100 mg PO BID #30 cap 12/19/20 famotidine 20 mg tablet 20 mg PO DAILY #30 tab 12/19/20 ondansetron HCl 4 mg tablet 4 mg PO Q6H PRN #30 tab 12/19/20 simethicone 80 mg chewable tablet 80 mg PO TID-QID PRN #30 tab 12/19/20 DS: Summary Time Spent with Patient Time attestation: Total time spent providing and/or coordinating discharge services: Discharge coordination time: Greater than 30 minutes Quality: Stroke Does the patient have a stroke diagnosis?: No Physical Exam Vital Signs: Vital Signs: Last Vital Signs Temp 97.8 F 12/28/20 12:35 Pulse 83 12/28/20 12:35 Resp 12 12/28/20 12:35 BP 130/78 12/28/20 12:35 Pulse Ox 98 12/28/20 12:35 Body Mass Index 35.7 DS: Data Data Completed and Pending Pending studies at discharge: Pending at discharge 12/28/20 12:07 Surgical [PTH] Routine Labs on day of discharge: Laboratory Results - last 24 hr 12/28/20 12/28/20 08:08 08:10 Urine Test NEGATIVE COVID-19 ([facility]) Negative COVID-19 Clin Com See Note Discharge Plan Discharge Patient Disposition: Home, Self-Care Discharge Diagnosis: obesity, s/p gastric band removal and lap sleeve gastrectomy Referrals: Po,Flores Bailey MD [Primary Care Provider] - 1 Week Discharge Medications: Continued cholecalciferol (vitamin D3) 50 mcg (2,000 unit) capsule 50 mcg PO DAILY Qty: 90 RF: 2 cyanocobalamin (vitamin B-12) 1,000 mcg capsule 1,000 mcg PO DAILY Qty: 90 RF: 2 multivitamin Tablet 1 tab PO DAILY RF: 0 Zyrtec 10 mg capsule 10 mg PO DAILY RF: 0 zinc 50 mg tablet 50 mg PO DAILY RF: 0 albuterol sulfate [ProAir HFA] 90 mcg/actuation HFA aerosol inhaler 1 puff inhalation QID PRN (Reason: Wheezing) RF: 0 acetaminophen [Tylenol Extra Strength] 500 mg tablet 1,000 mg PO Q6H PRN (Reason: pain) Qty: 30 RF: 1 famotidine [Pepcid AC] 20 mg tablet 20 mg PO DAILY Qty: 30 RF: 1 simethicone [Gas Relief (simethicone)] 80 mg tablet,chewable 80 mg PO TID-QID PRN (Reason: abdominal distention) Qty: 30 RF: 1 ondansetron HCl [Zofran] 4 mg tablet 4 mg PO Q6H PRN (Reason: nausea and vomiting) Qty: 30 RF: 1 docusate sodium [Colace] 100 mg capsule 100 mg PO BID Qty: 30 RF: 1 epinephrine 0.3 mg/0.3 mL auto-injector 1 IM DIRECTED RF: 0 pyridoxine (vitamin B6) 100 mg tablet 100 mg PO DAILY Qty: 90 RF: 1 Discontinued ibuprofen 600 mg tablet 600 mg PO Q6H PRN (Reason: pain) Qty: 30 RF: 0 Discharge Orders: Discharge Order (Routine); Ordered 12/29/20 Ordered By: Stephani Kearns Diet: other Activity on Discharge: No heavy lifting Stand Alone Forms: Patient Portal Discharge page Activity Restrictions/Additional Instructions: Discharge Instructions 1. Please call your doctor or come back to the emergency room should any new symptoms arise. 2. You will receive a courtesy call from [facility] 24-48 hours after discharge. 3. Activity: abstain from alcohol, practice limited stair climbing, no bending, no driving, no exercise, no illicit substances, no lifting, no sex, no tub bath, no work. 4. Diet: continue stage 3 protein shakes until your [address] Alonso. 5. Dressing Change/Wound Care: Your incision is covered by surgical glue. If the area is tender, you may apply an ice pack for short intervals (no more than 20 minutes on, followed by at least 20 minutes off). Do not apply heat. Do not use creams, lotions, or topical antibiotics unless instructed to do so by your surgeon. These can cause infection or allergic reaction. 6. Call your doctor if: - Your temperature exceeds 101.5 F - You experience excessive pain or swelling - You have an unexpected reaction to medication - You have excessive bleeding - You experience continued vomiting/nausea - Your incision begins to separate - Your incision shows signs of infection such as increased redness, swelling, excessive pain, heat, or drainage (light blood or clear fluid is normal) 7. General instructions: - No lifting greater than 5 lbs for the next 4 weeks. - No driving within 24 hours of taking narcotic pain medications. - If you do not move your bowels in the next 2 days, please take milk of magnesia over the counter. Please follow the post op diet and do not advance your diet until you are seen in the office in about 2 weeks. - Please walk around your home every hour or two to prevent blood clots from forming in your legs. You do not need to wake from sleeping to walk. - Please sleep in a bed or couch to prevent kinking at the hips and knees. - Please take your incentive spirometer (your lung trademark paralegal) home with you and use it for the next few days to prevent pneumonias. - You may shower, no hot tubs, baths or swimming pools. - Please call the office with any questions or concerns such as increasing abdom inal pain, fever, chills, shortness of breath, chest pain, leg pain or swelling, or redness or drainage from your incisions. - Please stay on stage 3 diet which includes sugar free clear liquids such as ice pops and jello and broth and crystal light. Avoid all carbonation. Please drink 3 protein shakes with at least 25-30 grams of protein daily or 3 of the Celebrate 4:1 shakes which can be purchased in our office. The Celebrate shakes have all of the bariatric vitamins you need if you consume these shakes. If you are drinking other protein shakes, you will need to purchase the Celebrate multi vitamins and calcium that we provide in the office (they will provide all the vitamins you need). Please make sure you are consuming at least 40-60 ounces of water in addition to your 3 protein shakes daily. 8. Do not hesitate to contact the office with any questions at . The patient's medical history has been reviewed and they are considered low risk for post op DVT and therefore DVT prophylaxis is not considered necessary. Travel after surgery was reviewed. The patient has not disclosed any travel plans during the first 30 days after surgery and they have been advised that w ithin the first 30 days after surgery any bus, plane, train or car travel over 2 hours in duration is contraindicated due to the possibility of developing blood clots from immobility. Any travel, needs to include periods of ambulation of 10 minutes in duration every 2 hours. The patient was instructed to discuss any plans for travel during this period with their bariatric surgeon. Discharge Summary Date of Service: 12/29/20 Pre-op diagnosis: Obesity, BMI 36.8, poor weight loss after gastric banding, current gastric band in place Post-op diagnosis: same Procedure: laparoscopic sleeve gastrectomy, removal of gastric band, Blossom block, and intraoperative endoscopy Discharge Medications: 1. Simethicone 80mg tablet chewable (Si tablet every 6 hours orally for 7 days, #28, 1 RF) q4h prn gas 2. Acetaminophen 500 mg tablet (Si tablets as needed every 6 hours orally for 30 days, #240, 0 RF) 3. Ondansetron 4 mg tablet disintegrating (Si tablet every 6 hours orally for 7 days, #28, 1 RF) 4. Colace 100 mg capsule (Si capsule twice a day for 30 days, #60, 2 RF) 5. Pepcid 20 mg chewable tablet (Si tablet twice a day for 30 days, #60, 3 RF) Discharge Instructions: The patient should continue on the stage III bariatric diet, which includes 3 protein shakes of at least 20-30g of protein on a daily basis. The patient was encouraged to avoid drinking liquids with her protein shakes. They should wait 30-45 minutes in between her meals and drinking water. She should drink at least 40-60 ounces of water on a daily basis. They should ambulate while at home to avoid any blood clots in her lower extremities. They should call with any questions or concerns such as increase in abdominal pain, persistent nausea, vomiting, redness and drainage from her incisions, fever, chills, shortness of breast, or chest pain beyond what is normal for her. The patient should avoid all heavy lifting greater than 5 pounds for the next 4 weeks. The patient is already scheduled to follow up with me in 2 weeks time, but should call the office with any questions prior to that follow up appointment. The patient should not advance their diet until they are seen in the office for the 2 week appointment. Hospital Course: The patient was admitted after undergoing a laparoscopic band removal and sleeve gastrectomy. They were started on stage II (1 oz of fluid every 15 minutes) on POD #0. The next morning they were evaluated and started on stage III diet (protein shakes). All labs were within normal limits. On post-operative day #1 she was feeling better, nausea and epigastric pain improved and they were tolerating stage III bariatric diet well. The patient was discharged home. Discharge Disposition: Home. Care Plan Goals: weight loss Health Concerns: obesity Plan of Treatment: removal of band, sleeve gastrectomy Assessment: stable 1 day s/p band removal and conversion to sleeve
--- NOTE | 2020-12-28 12:41 | PM.PNGS ---
Subjective Subjective Date of Service: 12/29/20 <Stephani Kearns PA-C - Last Filed: 12/29/20 10:22> 12/29/20 <Jazz Alonso MD - Last Filed: 12/29/20 09:44> Interval history: Pod #1 s/p laparoscopic removal of gastric band and conversion to sleeve gastrectomy. Doing well. Tolerating stage 3 diet, ambulating in hallway. Pain well controlled. Denies nausea or vomiting. Vitals and labs reviewed and are within limit for post op day 1. On exam, patient is well appearing, abdomen is soft, nd, mild appropriate incisional tenderness. Incisions c/d/i with dermabond in place. Plan: d/c home today. Follow up with me in 2 weeks. <Stephani Kearns PA-C - Last Filed: 12/29/20 10:22> Physical Exam Vital Signs: Vital Signs: Last Vital Signs Temp 97.8 F 12/28/20 12:35 Pulse 83 12/28/20 12:35 Resp 12 12/28/20 12:35 BP 130/78 12/28/20 12:35 Pulse Ox 98 12/28/20 12:35 Body Mass Index 35.7 <Stephani Kearns PA-C - Last Filed: 12/29/20 10:22> Const: General: cooperative, comfortable, no acute distress, alert and awake <Stephani Kearns PA-C - Last Filed: 12/29/20 10:22> Nutritional Appearance: obese <Stephani Kearns PA-C - Last Filed: 12/29/20 10:22> GI: Inspection: Yes normal to inspection, No distended and Yes incision (clean, dry, intact, dermabond in place) <Stephani Kearns PA-C - Last Filed: 12/29/20 10:22> Palpation (GI): Soft to palpation and Tenderness to palpation present (GI) (mild appropriate incisional tenderness) <Stephani Kearns PA-C - Last Filed: 12/29/20 10:22> Extrem: Right lower extremity: lower leg Details: no tenderness; no edema <Stephani Kearns PA-C - Last Filed: 12/29/20 10:22> Left lower extremity: lower leg Details: no tenderness; no edema <Stephani Kearns PA-C - Last Filed: 12/29/20 10:22> Progress Note: A&P Assessment and plan (1) Obesity (BMI 30-39.9): Status: Acute <Stephani Kearns PA-C - Last Filed: 12/29/20 10:22> (2) Gastric banding status: Status: Acute <Stephani Kearns PA-C - Last Filed: 12/29/20 10:22> (3) S/P laparoscopic sleeve gastrectomy: Status: Acute <Stephani Kearns PA-C - Last Filed: 12/29/20 10:22> Assessment and Plan: d/c home today. Follow up in 2 weeks. <Stephani Kearns PA-C - Last Filed: 12/29/20 10:22> Fall Risk Details Current Medications: Current Medications Generic Name Dose Route Start Last Admin Trade Name Freq PRN Reason Stop Dose Admin Albuterol Sulfate 2.5 mg 12/28/20 07:53 Albuterol Sulfate (0.083%) 2.5 Mg/3 Ml Vial.Neb INHALE ONCE PRN Shortness of Breath/Wheezing Albuterol Sulfate 1 puff 12/28/20 12:33 Albuterol Sulfate 90 Mcg 8 Gm Inhaler INHALE QID PRN Wheezing Famotidine 20 mg 12/28/20 21:00 Famotidine/Pf 20 Mg/2 Ml Vial IVPUSH BID ARMANDO Fentanyl 25 mcg 12/28/20 09:59 Fentanyl Citrate/Pf 100 Mcg/2 Ml Vial IVPUSH Q5M PRN Pain, Moderate (Pain Scale 4-6 Hydromorphone HCl 0.25 mg 12/28/20 09:59 Hydromorphone Hcl 0.5 Mg/0.5 Ml Syringe IVPUSH Q5M PRN Pain, Severe (Pain Scale 7-10) Hydromorphone HCl 0.25 mg 12/28/20 12:34 Hydromorphone Hcl 0.5 Mg/0.5 Ml Syringe IVPUSH Q4H PRN Pain, Severe (Pain Scale 7-10) Lactated Ringer's 1,000 mls @ 100 mls/hr 12/28/20 08:00 12/28/20 08:47 Lr IVCONT 100 mls/hr .Q10H ARMANDO Administration Promethazine HCl 6.25 mg/ 50.25 mls @ 201 mls/hr 12/28/20 09:59 Sodium Chloride IV ONCE PRN Nausea and Vomiting Lactated Ringer's 1,000 mls @ 125 mls/hr 12/28/20 12:45 Lr IVCONT .Q8H ARMANDO Cefotetan Disodium 2 gm/ 50 mls @ 100 mls/hr 12/28/20 12:34 Sodium Chloride IV 12/28/20 13:03 POSTOP ONE Acetaminophen 1,000 mg in 100 mls @ 16.7 mls/hr 12/28/20 12:45 Ofirmev IV .Q6H ARMANDO Metoclopramide HCl 10 mg 12/28/20 12:34 Metoclopramide Hcl 10 Mg/2 Ml Vial IVPUSH Q6H PRN Nausea Ondansetron HCl 4 mg 12/28/20 09:59 Ondansetron Hcl 4 Mg/2 Ml Vial IVPUSH ONCE PRN Nausea and Vomiting Ondansetron HCl 4 mg 12/28/20 12:45 Ondansetron Hcl 4 Mg/2 Ml Vial IVPUSH Q8H ARMANDO Sodium Chloride 3 ml 12/28/20 16:00 0.9 % Sodium Chloride Flush 3 Ml Syringe IVFLUSH QSHIFT [facility] <Stephani Kearns PA-C - Last Filed: 12/29/20 10:22> Time Spent With Patient Time: Total time spent is greater than 50% in coordination of care (as documented) at patient's floor/unit and/or counseling patient: <Stephani Kearns PA-C - Last Filed: 12/29/20 10:22> Time with patient: less than 15 minutes <Jazz Alonso MD - Last Filed: 12/29/20 09:44> Procedures Date of Service Date of Service: 12/29/20 <Jazz Alonso MD - Last Filed: 12/29/20 09:44> Quality Stroke Does the patient have a stroke diagnosis?: No <Jazz Alonso MD - Last Filed: 12/29/20 09:44> VTE Prior VTE?: No <Jazz Alonso MD - Last Filed: 12/29/20 09:44> VTE Risk Level:: Surgical - moderate <Jazz Alonso MD - Last Filed: 12/29/20 09:44> VTE Device Contraindication: N/A - Device Ordered <Jazz Alonso MD - Last Filed: 12/29/20 09:44> VTE Drug Contraindication: N/A - Med Ordered <Jazz Alonso MD - Last Filed: 12/29/20 09:44>
[2020-12-28] MEDS: ondansetron HCL 4 MG/2 ML VIAL IVPUSH ×2 (14:18→21:04)
[2020-12-28] MEDS: Lactated Ringers 1,000 ML 125 ML IVCONT ×2 (14:20→21:31)
--- NOTE | 2020-12-28 18:36 | PC.NURSE ---
PT AMBULATED TO BATHROOM MULTIPLE TIMES WITH UNSUCESSFULL VOID , PT BLADDER SCANNED FOR 548ML , NEW ORDER FOR STRAIGHT CATH . PT STRAIGHT CATH AT 1800 FOR 900ML OF YELLOW URINE . PT C/O OF NO PAIN AND MINIMAL NAUSEA .
[2020-12-28] MEDS: 0.9 % Sodium Chloride Flush 3 ML SYRINGE IVFLUSH (21:04)
[2020-12-28] MEDS: Famotidine/PF 20 MG/2 ML VIAL IVPUSH (21:04)
[2020-12-28] MEDS: cefoTEtan disodium 2 GM in 0.9 % Sodium Chloride 50 ML IV (22:29)
[2020-12-29 03:42] VITALS: BP 148/82; PULSE 87; RESP 17; TEMP 36.9; O2SAT 98
[2020-12-29] MEDS: ondansetron HCL 4 MG/2 ML VIAL IVPUSH (04:03)
[2020-12-29] MEDS: Lactated Ringers 1,000 ML 125 ML IVCONT (04:04)
[2020-12-29 06:53] LABS: MANUAL DIFF FLAG NO
[2020-12-29 07:04] LABS: Basophils Percent Auto 0.1 % (0-2); Hematocrit 34.8 % (37-47); Hemoglobin 11.7 g/dl (12.0-16.0); Imm Gran Abs Auto 0.06 X10*3/uL (0.00-0.03); Imm Gran Pct Auto 0.5 % (0.0-0.4); Lymphocytes Absolute Auto 1.6 X10*3/uL (1.2-4.9); Lymphocytes Percent Auto 13.6 % (20-40); Mean Corpuscular HGB Conc 33.6 g/dl (31.0-35.0); Mean Corpuscular Hemoglobin 30.2 pg (27.0-33.0); Mean Corpuscular Volume 89.9 fL (80-98); Mean Platelet Volume 10.2 fL (9.4-12.3); Monocytes Absolute Auto 0.8 X10*3/uL (0.1-1.2); Monocytes Percent Auto 6.6 % (2-11); Neutrophils Absolute Auto 9.2 X10*3/uL (2.0-8.3); Neutrophils Percent Auto 79.2 % (45-73); Platelet Count 219 X10*3/uL (160-400); Red Blood Count 3.87 X10*6/uL (4.20-5.50); Red Cell Distribution Width 12.9 % (11.0-16.0); White Blood Count 11.6 X10*3/uL (4.8-10.8)
[2020-12-29] MEDS: Famotidine/PF 20 MG/2 ML VIAL IVPUSH (07:12)
[2020-12-29 07:19] VITALS: BP 119/65; PULSE 77; RESP 17; TEMP 36.7; O2SAT 98
[2020-12-29 07:47] LABS: Anion Gap 12 (12-20); Blood Urea Nitrogen 7 mg/dL (9-16); Calcium 8.4 mg/dL (8.4-10.2); Carbon Dioxide 22 mmol/L (22-29); Chloride 108 mmol/L (96-108); Creatinine Clr Calc Pharmacy 157.7; Estimated Glomerular Filt Rate > 60; Glucose Random 95 mg/dL (60-115); Potassium 4.7 mmol/L (3.3-5.1); Sodium 137 mmol/L (135-145)
--- NOTE | 2020-12-29 09:39 | MHC.CM.PN ---
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 PT VERIFIES PCP IS VI [facility]WARI AND CURRENTLY DECLINES ASSISTANCE W/HCP. D/C PLAN: HOME SELF-CARE, AUNT FOR TRANSPORT.
--- NOTE | 2020-12-29 12:57 | HO.POSTANES ---
Post Anesthesia Evaluation Post Anesthesia Evaluation Vital Signs: Vital Signs Temp Pulse Resp BP Pulse Ox 12/29/20 07:19 98.0 F 77 17 119/65 98 12/29/20 03:42 98.4 F 87 17 148/82 H 98 Anesthesia: General Endotracheal-GETA Mental Status: Awake Pain Control: Satisfactory Nausea/Vomiting: None Hydration: Adequate Anesthesia-Related Issues: No Anes. Related Issues
== END 2020-12-29 10:53 | disposition home or self-care (01) | DRG 403 ==
LOC: HO.SSSA 13:10 → HO.S3 13:27
PROVIDERS: Anesthesiology; Physician Assistant; Admitting Provider Surgery; PCP Internal Medicine; Visit Provider Surgery
PROC: 0DB64Z3 Excision of Stomach, Percutaneous Endoscopic Approach, Vertical (ICD-10-PCS; principal; 2020-12-28 10:10)
DX: E66.8 Other obesity (principal); J45.909 Unspecified asthma, uncomplicated; K21.9 Gastro-esophageal reflux disease without esophagitis; M23.52 Chronic instability of knee, left knee; M25.50 Pain in unspecified joint; M23.51 Chronic instability of knee, right knee; Z20.822 Contact with and (suspected) exposure to COVID-19; Z98.84 Bariatric surgery status; Z68.36 Body mass index [BMI] 36.0-36.9, adult; Z79.899 Other long term (current) drug therapy
CPT/HCPCS: 36415; 80048; 81025; 85025; 86850; 86900; 86901; 87635; 88307; 88342; 93005; 99024; J0131; J1100; J1170; J2250; J2370; J2405; J2550; J3010

== ENCOUNTER → 2021-01-13 14:04 | Outpatient (BNVA) | payer OTHER, SELFPAY | PROVIDERS: PCP Internal Medicine; Referring Provider Internal Medicine; Visit Provider Surgery | DX: Z98.84 Bariatric surgery status (principal) | CPT/HCPCS: 99212 ==

== ENCOUNTER → 2021-02-10 09:16 | Outpatient (BNVA) | payer OTHER, SELFPAY | PROVIDERS: PCP Internal Medicine; Referring Provider Internal Medicine; Visit Provider Physician Assistant | DX: E66.9 Obesity, unspecified (principal); Z98.84 Bariatric surgery status | CPT/HCPCS: 99212 ==

== ENCOUNTER → 2021-03-03 08:12 | Outpatient (BNVA) | payer OTHER, SELFPAY | PROVIDERS: PCP Internal Medicine; Visit Provider Dietitian, Registered | DX: E66.9 Obesity, unspecified (principal); Z68.31 Body mass index [BMI] 31.0-31.9, adult | CPT/HCPCS: 97803 ==

== ENCOUNTER 2021-03-21 15:37 | Outpatient (REF) | payer OTHER, SELFPAY ==
--- NOTE | ~2021-03-21 | US_ITS ---
EXAMINATION: US RETROPERITONEAL LIMITED (RENAL ONLY) CLINICAL INFORMATION: Kidney stones. COMPARISON: Ultrasound renal 09/19/2020. X-ray KUB 09/02/2020. TECHNIQUE: Real-time imaging of the kidneys. FINDINGS: RIGHT KIDNEY: 11.6 x 5.3 x 6.1 cm (SAG x AP x TRV). The kidney is normal in size, contour, and echogenicity. Renal cortical thickness is normal. No focal parenchymal lesions or hydronephrosis. There is an echogenic stone midpole measuring 0.40 x 0.30 x 0.40 cm. LEFT KIDNEY: 10.8 x 5.9 x 5.0 cm (SAG x AP x TRV). The kidney is normal in size, contour, and echogenicity. Renal cortical thickness is normal. No focal parenchymal lesions or hydronephrosis. There are echogenic stones midpole measuring 0.24 x 0.20 x 0.30 and 0.20 x 0.20 x 0.30. US/US renal BI IMPRESSION: Bilateral nonobstructive echogenic renal calculi. No hydronephrosis.
== END 2021-03-21 15:38 | disposition home or self-care (01) ==
LOC: HO.HMGCX 15:37
PROVIDERS: PCP Internal Medicine; Visit Provider Urology
DX: N20.0 Calculus of kidney (principal)
CPT/HCPCS: 76775

== ENCOUNTER → 2021-03-23 15:38 | Outpatient (BNVA) | payer OTHER, SELFPAY | PROVIDERS: PCP Internal Medicine; Referring Provider Internal Medicine; Visit Provider Surgery | DX: E66.9 Obesity, unspecified (principal); Z68.31 Body mass index [BMI] 31.0-31.9, adult; Z98.84 Bariatric surgery status | CPT/HCPCS: 99212 ==

== ENCOUNTER → 2021-04-27 16:03 | Outpatient (BNVA) | payer OTHER, SELFPAY | PROVIDERS: PCP Internal Medicine; Referring Provider Internal Medicine; Visit Provider Physician Assistant Surgical | DX: E66.9 Obesity, unspecified (principal); Z3A.30 30 weeks gestation of pregnancy | CPT/HCPCS: 99212 ==

== ENCOUNTER 2021-06-20 06:52 | Outpatient (REF) | payer OTHER, SELFPAY | END 2021-06-20 06:53 | disposition home or self-care (01) | LOC: HO.HMGCLDS 06:52 | PROVIDERS: PCP Internal Medicine; Visit Provider Internal Medicine | DX: Z20.822 Contact with and (suspected) exposure to COVID-19 (principal); E66.3 Overweight; Z98.84 Bariatric surgery status | CPT/HCPCS: 99212; C9803; U0003; U0005 ==

== ENCOUNTER 2021-06-20 16:17 | Outpatient (REF) | payer OTHER, SELFPAY ==
[2021-06-20 16:33] LABS: MANUAL DIFF FLAG NO
[2021-06-20 17:01] LABS: Basophils Percent Auto 0.4 % (0-2); Eosinophils Absolute Auto 0.1 X10*3/uL (0.0-0.4); Hematocrit 37.9 % (37.0-47.0); Hemoglobin 12.9 g/dl (12.0-16.0); Imm Gran Abs Auto 0.01 X10*3/uL (0.00-0.03); Imm Gran Pct Auto 0.2 % (0.0-0.4); Lymphocytes Absolute Auto 2.3 X10*3/uL (1.2-4.9); Lymphocytes Percent Auto 43.4 % (20-40); Mean Corpuscular Hemoglobin 30.5 pg (27.0-33.0); Mean Corpuscular Volume 89.6 fL (80.0-98.0); Mean Platelet Volume 11.3 fL (9.4-12.3); Monocytes Absolute Auto 0.3 X10*3/uL (0.1-1.2); Monocytes Percent Auto 6.6 % (2-11); Neutrophils Absolute Auto 2.5 x10*3/uL (2.0-8.3); Neutrophils Percent Auto 48.4 % (45-73); Platelet Count 210 X10*3/uL (160-400); Red Blood Count 4.23 X10*6/uL (4.20-5.50); Red Cell Distribution Width 11.8 % (11.0-16.0); White Blood Count 5.2 X10*3/uL (4.8-10.8)
[2021-06-20 17:27] LABS: Anion Gap 11 (12-20); Blood Urea Nitrogen 14 mg/dL (9-16); C Reactive Protein 0.03 mg/dL (< or = 0.50); Calcium 9.8 mg/dL (8.4-10.2); Carbon Dioxide 28 mmol/L (22-29); Chloride 105 mmol/L (96-108); Cholesterol 121 mg/dL; Estimated Glomerular Filt Rate > 60; Glucose Random 94 mg/dL (60-115); HDL Cholesterol 43 mg/dL; Iron 81 mcg/dL (30-160); LDL Cholesterol Calculated 68 mg/dl; Percent Iron Saturation 26 % (15-50); Potassium 4.1 mmol/L (3.3-5.1); Sodium 140 mmol/L (135-145); Total Iron Binding Capacity 306 mcg/dL (228-428); Triglycerides 51 mg/dL; Unsaturated Iron Binding 225 ug/dL
[2021-06-20 17:47] LABS: Ferritin 96 ng/mL (10-122); TSH reflex Free T4 1.73 uIU/mL (0.32-4.0); Vitamin D 25-OH Total 33.4 ng/mL (>30)
[2021-06-20 18:00] LABS: Vitamin B12 351 pg/mL (200-900)
[2021-06-21 03:25] LABS: Estimated Average Glucose 97 mg/dL
[2021-06-25 11:16] LABS: Vitamin B1 26 nmol/L (8-30)
[2021-06-26 04:56] LABS: Zinc 61 mcg/dL (60-130)
[2021-06-26 16:31] LABS: Vitamin A 32 mcg/dL (38-98)
== END 2021-06-20 16:18 | disposition home or self-care (01) ==
LOC: HO.LAB 16:17
PROVIDERS: PCP Internal Medicine; Visit Provider Physician Assistant Surgical
DX: E66.9 Obesity, unspecified (principal); Z98.84 Bariatric surgery status
CPT/HCPCS: 36415; 80048; 80061; 82306; 82607; 82728; 82746; 83036; 83540; 84425; 84443; 84590; 84630; 85025; 86140

== ENCOUNTER → 2021-08-08 08:07 | Outpatient (BNVA) | payer OTHER, SELFPAY | PROVIDERS: PCP Internal Medicine; Visit Provider Dietitian, Registered | DX: E66.3 Overweight (principal); Z68.26 Body mass index [BMI] 26.0-26.9, adult; Z98.84 Bariatric surgery status; Z71.3 Dietary counseling and surveillance | CPT/HCPCS: 97803 ==

== ENCOUNTER 2021-08-14 13:35 | Outpatient (REF) | payer OTHER, SELFPAY ==
--- NOTE | ~2021-08-14 | XR_ITS ---
EXAMINATION: XR KNEE, RIGHT CLINICAL INFORMATION: Exam M25.561 - Pain in right knee COMPARISON: Standing AP knees and radiographs right knee 08/03/2020. TECHNIQUE: Standing AP and lateral views of the right knee are obtained. FINDINGS: No fracture or dislocation or destructive process. There is no significant joint narrowing and no erosive change or chondrocalcinosis. Moderate suprapatellar effusion is present. There is corticated ossicle at the posterior tibial plateau, stable from prior study and some borderline marginal osteophytes medial femoral condyle and medial tibial plateau again seen. Small benign round calcifications are again noted anterior soft tissues at level of the patellar and upper vela. XR/XR knee RT 2V IMPRESSION: 1. Moderate suprapatellar effusion. 2. Borderline degenerative changes medial knee joint compartment.
--- NOTE | ~2021-08-14 | XR_ITS ---
EXAMINATION: XR HIP, RIGHT CLINICAL INFORMATION: M25.561 - Pain in right knee COMPARISON: Radiographs right hip 08/20/2020 TECHNIQUE: 3 views of the right hip. FINDINGS: There is no fracture, dislocation, destructive process. Bony mineralization appears normal. There is no interval joint narrowing or erosive change or chondrocalcinosis. No diastases SI joints or pubis. IUD overlying central pelvis. Bowel gas unremarkable. XR/XR hip RT min 2V IMPRESSION: Unremarkable right hip.
== END 2021-08-14 13:36 | disposition home or self-care (01) ==
LOC: HO.XRAY 13:35
PROVIDERS: PCP Internal Medicine; Visit Provider Internal Medicine
DX: M25.561 Pain in right knee (principal); M25.551 Pain in right hip
CPT/HCPCS: 73502; 73560

== ENCOUNTER → 2021-09-01 10:41 | Outpatient (BNVA) | payer OTHER, SELFPAY | PROVIDERS: PCP Internal Medicine; Visit Provider Orthopaedic Surgery | DX: M25.361 Other instability, right knee (principal); M25.461 Effusion, right knee | CPT/HCPCS: 99212 ==

== ENCOUNTER 2021-09-15 15:20 | Outpatient (REF) | payer OTHER, SELFPAY ==
[2021-09-16 02:48] LABS: CT PCR NOT DETECTED (Not Detect.); NG PCR NOT DETECTED (Not Detect.)
[2021-09-21 03:07] LABS: HPV 16 RNA NOT DETECTED (NOT DETECTED); HPV mRNA E6/E7 rflx Detected (Not Detected)
== END 2021-09-15 15:21 | disposition home or self-care (01) ==
LOC: HO.LAB 15:20
PROVIDERS: PCP Internal Medicine; Visit Provider Obstetrics & Gynecology
DX: Z01.419 Encounter for gynecological examination (general) (routine) without abnormal findings (principal); N93.9 Abnormal uterine and vaginal bleeding, unspecified
CPT/HCPCS: 87491; 87591; 87624; 87625; 88142; 99202

== ENCOUNTER 2021-09-18 19:23 | Outpatient (REF) | payer OTHER, SELFPAY ==
--- NOTE | ~2021-09-18 | MR_ITS ---
EXAMINATION: MR KNEE WITHOUT CONTRAST, RIGHT CLINICAL INFORMATION: Effusion, pain. COMPARISON: X-ray 08/14/2021 TECHNIQUE: MRI of the knee without contrast was performed using routine sequences on a high-field scanner. FINDINGS: MENISCI: Medial Meniscus: Complex tear. Bucket-handle type tear, with torn meniscal tissue displaced into the intercondylar region and along the anterior horn. Small caliber of the residual posterior horn and body. Undersurface tearing in the anterior horn. Lateral Meniscus: Intact LIGAMENTS: Cruciate: ACL is not visualized, with some irregular tissue/signal. Findings suggest a full-thickness tear, off indeterminate age. Collateral: Intact EXTENSOR MECHANISM: Intact ARTICULAR CARTILAGE/BONE: Patellofemoral Compartment: No significant cartilage loss. Medial Compartment: Subchondral edema which could be related to bone contusion or degeneration in the posterior aspect of the tibia. There is a chronic appearing ossification present posteriorly, also seen on the prior x-ray. Mild cartilage thinning of the posterior aspect of the tibia. Lateral Compartment: No significant cartilage loss. JOINT FLUID AND BURSAE: Small effusion. MR/MR knee RT wo con IMPRESSION: 1. Complex tear of the medial meniscus. Bucket-handle tear with torn displaced meniscal tissue, and tear of the anterior horn, as described above. 2. Nonvisualization of the ACL indicative of a full-thickness tear. This of indeterminate age. 3. Findings in the posterior aspect of the medial tibial plateau could be related to bone contusion or degeneration. Mild degeneration in the medial compartment. 4. Small effusion.
== END 2021-09-18 19:24 | disposition home or self-care (01) ==
LOC: HO.MRI 19:23
PROVIDERS: PCP Internal Medicine; Visit Provider Orthopaedic Surgery
DX: M25.361 Other instability, right knee (principal); M25.461 Effusion, right knee
CPT/HCPCS: 73721

== ENCOUNTER 2021-09-27 12:56 | Outpatient (REF) | payer OTHER, SELFPAY ==
--- NOTE | ~2021-09-27 | US_ITS ---
EXAMINATION: US PELVIS CLINICAL INFORMATION: Abnormal vaginal bleeding. COMPARISON: Pelvic ultrasound dated 11/26/2014. TECHNIQUE: Ultrasound of the pelvis is performed using both transabdominal and transvaginal transducers along with Doppler. Transvaginal imaging is performed due to inadequate visualization transabdominally. FINDINGS: Uterus: Anteverted/anteflexed measuring 9.2 x 6.2 x 6.2 cm. An intramural fibroid in the anterior fundus measures 2.7 x 2.1 2.4 cm. A probable scar is seen in the anteroinferior body. The endometrial stripe measures up to 0.6 cm. An IUD is seen within the endometrial canal extending to the level just proximal to the superior fundal margin. No surrounding abnormality is seen. The cervix is closed without abnormality. No significant free fluid in the cul-de-sac. Right ovary: 3.9 x 2.1 x 1.8 cm with a volume of 7.7 mL. Anechoic cysts/follicles are seen measuring up to 1.7 cm. Doppler showed no abnormal vascular flow. Left ovary: 2.1 x 1.6 x 1.8 cm. Doppler showed no abnormal vascular flow. Urinary bladder: Mildly distended without focal abnormality. US/US pelvic and transvaginal IMPRESSION: 1. Anterior fundal intramural fibroid as detailed above. 2. IUD within the endometrial canal without overt abnormality. 3. Small right ovarian cysts/follicles demonstrate benign features, within normal limits for a patient of this age.
[2021-09-27 16:52] LABS: Hematocrit 36.2 % (37.0-47.0); Hemoglobin 12.2 g/dl (12.0-16.0); Mean Corpuscular HGB Conc 33.7 g/dl (31.0-35.0); Mean Corpuscular Hemoglobin 31.1 pg (27.0-33.0); Mean Corpuscular Volume 92.3 fL (80.0-98.0); Platelet Count 179 X10*3/uL (160-400); Red Blood Count 3.92 X10*6/uL (4.20-5.50); Red Cell Distribution Width 12.4 % (11.0-16.0); White Blood Count 4.8 X10*3/uL (4.8-10.8)
[2021-09-27 17:40] LABS: HCG Quantitative < 2 mIU/mL; TSH reflex Free T4 1.31 uIU/mL (0.32-4.0)
== END 2021-09-27 12:57 | disposition home or self-care (01) ==
LOC: HO.HMGCX 12:56
PROVIDERS: PCP Internal Medicine; Visit Provider Obstetrics & Gynecology
DX: N93.9 Abnormal uterine and vaginal bleeding, unspecified (principal)
CPT/HCPCS: 36415; 76830; 76856; 84443; 84702; 85027

== ENCOUNTER 2021-10-02 14:42 | Outpatient (REF) | payer OTHER, SELFPAY | END 2021-10-02 14:43 | disposition home or self-care (01) | LOC: HO.LAB 14:42 | PROVIDERS: Visit Provider Orthopaedic Surgery | DX: N93.9 Abnormal uterine and vaginal bleeding, unspecified (principal); R87.820 Cervical low risk human papillomavirus (HPV) DNA test positive; S83.511A Sprain of anterior cruciate ligament of right knee, initial encounter | CPT/HCPCS: 57454; 58100; 58110; 81025; 88305; 99212 ==

== ENCOUNTER → 2021-10-12 11:03 | Outpatient (BNVA) | payer OTHER, SELFPAY | PROVIDERS: PCP Internal Medicine; Visit Provider Obstetrics & Gynecology | DX: Z13.89 Encounter for screening for other disorder (principal) ==

== ENCOUNTER 2021-10-18 06:26 | Day surgery (SDC) | payer OTHER, SELFPAY ==
[2021-10-10 11:18] VITALS: BMI 27.3
--- NOTE | 2021-10-17 09:17 | P.CONAN_ITS ---
Documented by User: Eden Chery NP 10/17/21 09:24 HPI - Anesthesia Eval Consult details Narrative: 41yo F for Right ACL Arthroscopic reconstruction with poss meniscus repair s/p lap band removal 11/2020 with GA-ETT 7 PMFSH Active Problems Active Problems: All Active Problems (Updated 10/12/21 @ 12:45 by Everardo Stewart MD) Myoma (Acute) Abnormal uterine bleeding (AUB) (Acute) ASCUS with positive high risk HPV cervical (Acute) Cellulitis (Acute) Plantar fasciitis of right foot (Acute) Overweight (Acute) Knee pain, right (Acute) Hip pain, right (Acute) Annual physical exam (Acute) Constipation (Acute) Menorrhagia (Acute) Knee effusion, right (Acute) Patellar instability of right knee (Acute) Abnormal uterine bleeding (Acute) Right ACL tear (Acute) HPV in female (Acute) S/P laparoscopic sleeve gastrectomy (Acute) Gastric banding status (Acute) Past Medical History Medical History Adjustment disorder, unspecified Anxiety and depression Asthma Bilateral nephrolithiasis Carpal tunnel syndrome, right Constipation Dark yellow-colored urine GERD (gastroesophageal reflux disease) Gestational diabetes H. pylori duodenitis Iron deficiency anemia Migraines Obesity (BMI 30-39.9) Patellar instability of both knees Polyarthralgia Preoperative examination Right renal stone Shortness of breath Talar fracture Ulnar neuropathy Vitamin B 12 deficiency Vitamin D deficiency Family History Family History Father Diabetes HTN (hypertension) AA (alcohol abuse) Stomach ulcer Cirrhosis Substance abuse Mother No problems noted. Sister Diabetes Substance abuse Bipolar 1 disorder Brother Diabetes Glaucoma Substance abuse Bipolar 1 disorder Daughter Asthma Chronic eczema Maternal Grandmother Myocardial infarct Bipolar 1 disorder Paternal Grandfather Myocardial infarct Paternal Uncle Substance abuse Liver cancer Throat cancer Family history of problems with anesthesia: No Surgical History Surgical History Gastric banding status H/O: History of esophagogastroduodenoscopy (EGD) History of removal of laparoscopic gastric banding device Hx laparoscopic cholecystectomy Hx of laparoscopic gastric banding S/P laparoscopic sleeve gastrectomy History of Problems with Anesthesia: No Social History Social History Are you a primary care connector to a significant other at home: No Do you presently have visiting nurse or other home services: No Alcohol intake: current Alcohol intake frequency: holidays/special occasions only Patient Tobacco Use Status: Never used Tobacco e-Cigarette/Vaping Use: Never Used Second Hand Smoke Exposure: No Use of substances other than those prescribed or required for medical reasons: No Are you DNR?: No Advance Directives: No Advance Directives Information Provided: Yes Advance Directives on File: No service: No Current occupational status: employed 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 - [employer] Meds Allergies Allergy/AdvReac Type Severity Reaction Status Date / Time latex Allergy Intermediate Rash Verified 10/18/21 06:54 seafood Allergy Intermediate swelling/hi Verified 10/18/21 06:54 ves shellfish derived Allergy Intermediate HIVES,SWELL Verified 10/18/21 06:54 [SHELLFISH DERIVED] ING pollen extracts AdvReac Intermediate Sneezing Verified 10/18/21 06:54 dust mites Allergy Intermediate Rash Uncoded 10/10/21 11:11 Home Medications Medication Instructions Recorded Confirmed Last Taken Type epinephrine 0.3 mg/0.3 mL 1 IM DIRECTED 09/28/20 08/22/21 Unknown History injection, auto-injector cetirizine 10 mg capsule (Zyrtec) 10 mg PO DAILY PRN 01/13/21 08/22/21 10/18/21 05:30 History albuterol sulfate 90 mcg/actuation 1 inh INHALATION Q4-6H PRN 03/23/21 08/22/21 Unknown History breath activated powder inhaler calcium citrate 1,000 mg tablet 1,000 mg PO DAILY 03/23/21 08/22/21 Unknown History [id number] 45 mg-folic 1 cap PO DAILY cap 03/23/21 08/22/21 Unknown History acid 800 mcg-vit K 120 mcg capsule (Bariatric Multivitamins) levonorgestrel 20 mcg/24 hours (7 INTRAUTERINE 09/15/21 Unknown History yrs) 52 mg intrauterine device (Mirena) Exam Exam Date and Time: October 17, 2021 0917 Height,Weight and Vital Signs: Height 5 ft 3 in Weight 69.853 kg Pertinent Lab Results Pertinent Lab Results: Laboratory Tests 06/20/21 09/27/21 16:31 13:28 WBC 4.8 Hgb 12.2 Hct 36.2 L Plt Count 179 Sodium 140 Potassium 4.1 Chloride 105 Carbon Dioxide 28 BUN 14 Creatinine 0.65 Narrative Narrative: EKG 11/2020 Vent. Rate : 062 BPM ? ? Atrial Rate : 062 BPM ?? P-R Int : 158 ms? QRS Dur : 090 ms ? ? QT Int : 410 ms ? ? ? P-R-T Axes : 026 021 025 degrees ?? QTc Int : 416 ms ? Normal sinus rhythm Normal ECG When compared with ECG of 03-SEP-2019 08:59, No significant change was found Assessment and Plan Assessment Anesthesia Assessment: Chart Reviewed Final Anesthetic Review Family History of Problems with Anesthesia: No History of Problems with Anesthesia: No Documented by User: Chapito Best MD 10/18/21 10:05 [facility] Past Medical History Medical History Adjustment disorder, unspecified Anxiety and depression Asthma Bilateral nephrolithiasis Carpal tunnel syndrome, right Constipation Dark yellow-colored urine GERD (gastroesophageal reflux disease) Gestational diabetes H. pylori duodenitis Iron deficiency anemia Migraines Obesity (BMI 30-39.9) Patellar instability of both knees Polyarthralgia Preoperative examination Right renal stone Shortness of breath Talar fracture Ulnar neuropathy Vitamin B 12 deficiency Vitamin D deficiency Functional capacity: independent ambulation Family History Family History Father Diabetes HTN (hypertension) AA (alcohol abuse) Stomach ulcer Cirrhosis Substance abuse Mother No problems noted. Sister Diabetes Substance abuse Bipolar 1 disorder Brother Diabetes Glaucoma Substance abuse Bipolar 1 disorder Daughter Asthma Chronic eczema Maternal Grandmother Myocardial infarct Bipolar 1 disorder Paternal Grandfather Myocardial infarct Paternal Uncle Substance abuse Liver cancer Throat cancer Surgical History Surgical History Gastric banding status H/O: History of esophagogastroduodenoscopy (EGD) History of removal of laparoscopic gastric banding device Hx laparoscopic cholecystectomy Hx of laparoscopic gastric banding S/P laparoscopic sleeve gastrectomy Social History Social History Are you a primary care connector to a significant other at home: No Do you presently have visiting nurse or other home services: No Alcohol intake: current Alcohol intake frequency: holidays/special occasions only Patient Tobacco Use Status: Never used Tobacco e-Cigarette/Vaping Use: Never Used Second Hand Smoke Exposure: No Use of substances other than those prescribed or required for medical reasons: No Are you DNR?: No Advance Directives: No Advance Directives Information Provided: Yes Advance Directives on File: No service: No Current occupational status: employed 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 - [employer] Meds Allergies Allergy/AdvReac Type Severity Reaction Status Date / Time latex Allergy Intermediate Rash Verified 10/18/21 06:54 seafood Allergy Intermediate swelling/hi Verified 10/18/21 06:54 ves shellfish derived Allergy Intermediate HIVES,SWELL Verified 10/18/21 06:54 [SHELLFISH DERIVED] ING pollen extracts AdvReac Intermediate Sneezing Verified 10/18/21 06:54 dust mites Allergy Intermediate Rash Uncoded 10/10/21 11:11 Home Medications Medication Instructions Recorded Confirmed Last Taken Type epinephrine 0.3 mg/0.3 mL 1 IM DIRECTED 09/28/20 08/22/21 Unknown History injection, auto-injector cetirizine 10 mg capsule (Zyrtec) 10 mg PO DAILY PRN 01/13/21 08/22/21 10/18/21 05:30 History albuterol sulfate 90 mcg/actuation 1 inh INHALATION Q4-6H PRN 03/23/21 08/22/21 Unknown History breath activated powder inhaler calcium citrate 1,000 mg tablet 1,000 mg PO DAILY 03/23/21 08/22/21 Unknown History [id number]-nytu 45 mg-folic 1 cap PO DAILY cap 03/23/21 08/22/21 Unknown History acid 800 mcg-vit K 120 mcg capsule (Bariatric Multivitamins) levonorgestrel 20 mcg/24 hours (7 INTRAUTERINE 09/15/21 Unknown History yrs) 52 mg intrauterine device (Mirena) Exam Airway Mallampati Class: II TM Dist: >3cm Neck ROM: Full Loose/Missing/Broken Teeth: Yes (Multiple chipped teeth ) Heart: S1 , S2 Lungs: b/l breath sounds Assessment and Plan Assessment Anesthesia Assessment: Anesthesia Plan Discussed Final Anesthetic Review NPO: Yes ASA Class: II Final Preanesthetic Review: Meds/Allgs Chart Reviewed, Consent Obtained/Reviewed and Anes Risks/Benef Reviewed Patient Risk: Intermediate Procedure Risk: Intermediate Anesthetic Plan Anesthetic Plan: GA Disposition: Standard PACU
[2021-10-18] VITALS (11 sets, daily range): BP systolic 101–119; BP diastolic 61–72; PULSE 61–105; RESP 16–18; TEMP 36.3–36.5; O2SAT 100; BMI 25.8
[2021-10-18 07:10] LABS: UPreg QC Valid YES; Urine Pregnancy NEGATIVE (NEGATIVE)
[2021-10-18] MEDS: Lactated Ringers 1,000 ML 100 ML IVCONT (07:12)
--- NOTE | 2021-10-18 07:28 | MHC.SHP ---
Pre-Procedural Eval Section A Date of Service: 10/18/21 The patient is an INPATIENT: No Changes since office visit: Yes Patient answered all questions; No Cold of Flu in the past 2 weeks, No New Medical Problems and No Changes in Medication The History & Physical has been completed within 30 days and I have reviewed it.: No Section B Chief Complaint: Sprain of anterior cruciate ligament of right knee Allergies: Allergies Allergy/AdvReac Type Severity Reaction Status Date / Time latex Allergy Intermediate Rash Verified 10/18/21 06:54 seafood Allergy Intermediate swelling/hi Verified 10/18/21 06:54 ves shellfish derived Allergy Intermediate HIVES,SWELL Verified 10/18/21 06:54 [SHELLFISH DERIVED] ING pollen extracts AdvReac Intermediate Sneezing Verified 10/18/21 06:54 dust mites Allergy Intermediate Rash Uncoded 10/10/21 11:11 Plan I have reviewed the history and physical and performed a pertinent physical examination on my patient. No changes have occurred unless specified.
--- NOTE | 2021-10-18 10:41 | P.BOP_ITS ---
Brief Operative Note Date of Service: 10/18/21 Pre-op diagnosis: right ACL tear and bucket handle medial meniscus tear Post-op diagnosis: same Procedure: ACL reconstruction with allograft adn medial meniscus repair Implants: Hamstring allograft 10x25 PEEK tibial interference screw and femoral flip button Fast fix meniscal cinch x4 Surgeon: Jason Patel MD Anesthesia: GETA and regional Was an Reproduction Artist used for this Procedure?: Yes Reproduction Artist: Alexa Bryan Estimated blood loss (mL): 5 Tourniquet time (min): 80 IV fluids (mL): 1,000 Pathology: none sent Condition: stable Disposition: PACU
--- NOTE | 2021-10-18 10:47 | W.PM.OPN ---
Operative Note Operative Note Date of Service: 10/18/21 Narrative: Date of Service: 10/18/21 Pre-op diagnosis: right ACL tear and bucket handle medial meniscus tear Post-op diagnosis: same Procedure: ACL reconstruction with allograft adn medial meniscus repair Implants: Hamstring allograft 10x25 PEEK tibial interference screw and femoral flip button Fast fix meniscal cinch x4 Surgeon: Jason Patel MD Anesthesia: GETA and regional Was an Diesel Maintenance Electrician used for this Procedure?: Yes Diesel Maintenance Electrician: Alexa Bryan Estimated blood loss (mL): 5 Tourniquet time (min): 80 IV fluids (mL): 1,000 Pathology: none sent Condition: stable Disposition: PACU Procedure in detail: Patient was brought to the operating room and placed supine on the surgical table. She was prepped and draped in standard sterile fashion and a time out was called to identify proper site, proper procedure and IV antibiotics per weight were administered. I began by testing the knee. She had a 2+ Leeroy's and a + pivot shift. The allograft was then opened. I then insufflated the tourniquet to 300 mm hg. I then made a standard anterolateral stab incision. The knee was insufflated with water and 30 degree arthroscope was placed. There were no cartilage changes of the patellaand the suprapatellar pouch was clean and the gutters were clean. I descended into the medial compartment where I made my medial portal under direct visualization. There was a bucket handle white/white meniscus tear displaced in the notch. I reduced the medial meniscus with a blunt probe and then placed 4 fast fix meniscal cinches through the displaced meniscus tear. It was not possible to debride the meniscal bed prior. The root was intact. The medial and lateral compartment cartilage surfaces were normal. There was an empty wall sign in the notch and I performed a notchplasty and debrided the acl remnants. I then established a far medial portal and drilled a beefpin low and medial to create the femoral tunnel using a 7 mm guide from the posterior wall. The tunnel measured a 32. The graft was prepared by whip stitching the ends and doubling it over. It fit through a 10 aperture gauge and so a 10 mm reamer was used to overdrill the femoral pin to a depth of 22 mm and then a 4.5 for the remainder of the tunnel. I then identified the natural tibial insertion, just anterior and lateral to the PCL footprint. Using a 55 deg guide I drilled a k wire from just medial to the tibial tubercle through the tibial ACL footprint. I then over reamed with a 10 mm reamer and cleaned up the loose debris. The tunnel did not impinge in extension. I then passed the graft through the tibial and femoral tunnel, flipped the button and cycled the knee 20-30 times. The meniscal repair was stable and I then placed a 10x25 tibial interference screw while in hyper-extension with the graft tightened as much as possible. I then removed all extranneous instrumentation. There was a stable Leeroy's and a negative pivot shift. The portals were closed with nylon, then patient was then placed in sterile dressing and an ACL brace was placed. She was then extubated and brought recovery room stable condition. There were no known complications.
[2021-10-18] MEDS: HYDROmorphone HCl 0.5 MG/0.5 ML SYRINGE 0.25 MG IVPUSH ×2 (11:08→11:23)
== END 2021-10-18 12:28 | disposition home or self-care (01) ==
PROVIDERS: Nurse Practitioner; PCP Internal Medicine; Visit Provider Orthopaedic Surgery
PROC: (CPT 29882; principal; 2021-10-18 08:30)
DX: S83.211A Bucket-handle tear of medial meniscus, current injury, right knee, initial encounter (principal); S83.511A Sprain of anterior cruciate ligament of right knee, initial encounter; J45.909 Unspecified asthma, uncomplicated; F32.9 Major depressive disorder, single episode, unspecified; K21.9 Gastro-esophageal reflux disease without esophagitis; G62.9 Polyneuropathy, unspecified; D50.9 Iron deficiency anemia, unspecified; E55.9 Vitamin D deficiency, unspecified; E53.8 Deficiency of other specified B group vitamins; X58.XXXA Exposure to other specified factors, initial encounter; Y93.9 Activity, unspecified; Y92.9 Unspecified place or not applicable; Y99.8 Other external cause status; Z79.899 Other long term (current) drug therapy; Z98.84 Bariatric surgery status; Z91.040 Latex allergy status
CPT/HCPCS: 29882; 29888; 81025; C1713; C1769; J0171; J0690; J1100; J1170; J1885; J2250; J2405; J2795; J3010

== ENCOUNTER → 2021-10-23 10:59 | Outpatient (BNVA) | payer OTHER, SELFPAY | PROVIDERS: PCP Internal Medicine; Visit Provider Physician Assistant | DX: E66.3 Overweight (principal); Z68.25 Body mass index [BMI] 25.0-25.9, adult; Z98.84 Bariatric surgery status; Z47.89 Encounter for other orthopedic aftercare | CPT/HCPCS: 99212 ==

== ENCOUNTER → 2021-11-06 10:06 | Outpatient (BNVA) | payer OTHER, SELFPAY | PROVIDERS: PCP Internal Medicine; Visit Provider Physician Assistant | DX: Z98.890 Other specified postprocedural states (principal) | CPT/HCPCS: 99212 ==

== ENCOUNTER → 2021-11-20 12:29 | Outpatient (BNVA) | payer OTHER, SELFPAY | PROVIDERS: PCP Internal Medicine; Visit Provider Physician Assistant | DX: Z47.89 Encounter for other orthopedic aftercare (principal); Z98.890 Other specified postprocedural states | CPT/HCPCS: 99212 ==

== ENCOUNTER 2022-01-18 13:00 | Outpatient (RCR) | payer OTHER, SELFPAY ==
--- NOTE | 2021-10-23 15:34 | MHC.PT.EP ---
[facility] [place] [facility] [place] [facility] [place] Office [address] Fidencio Hutchison [address] [phone] F: [phone] F: [phone] F: [phone] F: [phone] Physical Therapy Plan of Care Date of Evaluation: Date of Surgery: 10/18/21 Diagnosis: ACL reconstruction with allograft and medial meniscus repair Assessment: PRESENTS POD 5 S/P ACL ALLOGRAPH AND MENISCAL REPAIR. SHE COMES IN TODAY FOR ORTHOPEDIC FOLLOW UP AND PT EVALUATION. UPON EXAM HE DEMONSTRATES THE EXPECTED IMPAIRMENTS OF DECREASED ROM, DECREASED STRENGTH, ALTERED POSTURE AND POSITIONING,ALTERED GAIT AND BALANCE, AND INCREASED PAIN AND EDEMA. FUNCTIONAL LIMITATIONS INCLUDE DECREASED ABILITY TO PERFORM HOMEMAKING AND SELF-CARE TASKS, DECREASED ABILITY TO PERFORM WALKING, RUNNING, JUMPING AND SQUATTING, INABILITY TO DRIVE AND PERFORM WORK TASKS, DECREASED PARTICIPATION IN COMMUNITY AND RECREATIONAL ACTIVITIES AND DISRUPTED SLEEP. THE Pt IS A GOOD CANDIDATE FOR SKILLED PT DUE TO AGE, POTENTIAL REMEDIATION OF IMPAIRMENTS, TYPICAL DISEASE/CONDITION PROGRESSION AND PROGNOSIS, COMORBIDITIES, AND MOTIVATION. PT WOULD BENEFIT FROM TAILORED PROGRAM OF THERAPEUTIC ACTIVITIES, FUNCTIONAL TRAINING, GAIT TRAINING, POSTURAL EDUCATION, NEUROMUSCULAR RE-EDUCATION, AND MODALITIES NEEDED. Frequency and Duration: The patient will be seen 2 X WEEK X 4 WEEKS Short Term Goals: INITIATE HEP AND PROMOTE SELF MANAGEMENT OF SYMPTOMS IN WEEKS Detention Goals: N 6 WEEKS: TO DEMONSTRATE FULL KNEE ROM, EQUAL BONIFACIO TO DEMONSTRATE FULL LE STRENGTH, EQUAL BONIFACIO TO ASCEND AND DESCEND STAIRS WITH RECIPROCAL GAIT WITHOUT PAIN GREATER THAN 2/10 TO AMBULATE AD ELAN ON LEVEL AND UNEVEN SURFACES FOR FITNESS WITHOUT PAIN GREATER THAN 2/10 TO PERFORM FULL FUNCTIONAL SQUA Treatment Plan: Modalities to reduce pain, spasms and effusion. Manual therapy to restore motion and function. Therapeutic exercise to improve strength and flexibility. Neuromuscular re-education for posture and balance. Therapeutic activities to return to functional activities of daily living. Electronically signed by: NEGRA ARGUELLES PT, DPT Please sign and return to therapist. Thank you for your referral.
== END 2022-03-02 14:50 | disposition home or self-care (01) ==
LOC: HO.PT 13:00
PROVIDERS: Visit Provider Physician Assistant
DX: Z98.890 Other specified postprocedural states (principal)
CPT/HCPCS: 97110; 97112; 97116; 97140; 97161; 97530

== ENCOUNTER → 2022-01-22 14:35 | Outpatient (BNVA) | payer OTHER, SELFPAY | PROVIDERS: PCP Internal Medicine; Visit Provider Physician Assistant Surgical | DX: E66.3 Overweight (principal); Z68.26 Body mass index [BMI] 26.0-26.9, adult | CPT/HCPCS: 99212 ==

== ENCOUNTER 2022-01-25 16:23 | Outpatient (REF) | payer OTHER, SELFPAY ==
[2022-01-25 17:06] LABS: MANUAL DIFF FLAG NO
[2022-01-25 17:47] LABS: Basophils Percent Auto 0.4 % (0-2); Eosinophils Absolute Auto 0.1 X10*3/uL (0.0-0.4); Hematocrit 38.5 % (37.0-47.0); Hemoglobin 12.8 g/dl (12.0-16.0); Imm Gran Abs Auto 0.01 X10*3/uL (0.00-0.03); Imm Gran Pct Auto 0.2 % (0.0-0.4); Lymphocytes Absolute Auto 3.1 X10*3/uL (1.2-4.9); Lymphocytes Percent Auto 58.9 % (20-40); Mean Corpuscular HGB Conc 33.2 g/dl (31.0-35.0); Mean Corpuscular Hemoglobin 29.9 pg (27.0-33.0); Mean Platelet Volume 10.1 fL (9.4-12.3); Monocytes Absolute Auto 0.4 X10*3/uL (0.1-1.2); Monocytes Percent Auto 7.3 % (2-11); Neutrophils Absolute Auto 1.7 x10*3/uL (2.0-8.3); Neutrophils Percent Auto 32.2 % (45-73); Platelet Count 208 X10*3/uL (160-400); Red Blood Count 4.28 X10*6/uL (4.20-5.50); Red Cell Distribution Width 12.4 % (11.0-16.0); White Blood Count 5.2 X10*3/uL (4.8-10.8)
[2022-01-25 17:57] LABS: Estimated Average Glucose 94 mg/dL; Hemoglobin A1c % 4.9 %
[2022-01-25 18:22] LABS: Anion Gap 12 (12-20); Blood Urea Nitrogen 15 mg/dL (9-16); C Reactive Protein 0.02 mg/dL (< or = 0.50); Calcium 9.4 mg/dL (8.4-10.2); Carbon Dioxide 25 mmol/L (22-29); Chloride 106 mmol/L (96-108); Cholesterol 142 mg/dL; Estimated Glomerular Filt Rate > 60; Glucose Random 87 mg/dL (60-115); HDL Cholesterol 60 mg/dL; Iron 57 mcg/dL (30-160); LDL Cholesterol Calculated 74 mg/dl; Percent Iron Saturation 18 % (15-50); Potassium 4.5 mmol/L (3.3-5.1); Sodium 138 mmol/L (135-145); Total Iron Binding Capacity 315 mcg/dL (228-428); Triglycerides 43 mg/dL; Unsaturated Iron Binding 258 ug/dL
[2022-01-25 18:46] LABS: Ferritin 47 ng/mL (10-122); Insulin 2 uU/mL (2-29); TSH reflex Free T4 1.11 uIU/mL (0.32-4.0); Vitamin D 25-OH Total 25.9 ng/mL (>30)
[2022-01-25 19:22] LABS: Folate 14.8 ng/mL (> or = 4.0); Vitamin B12 148 pg/mL (200-900)
[2022-01-28 13:11] LABS: PTHI 53 pg/mL (16-77)
[2022-01-30 06:21] LABS: Zinc 56 mcg/dL (60-130)
[2022-01-30 18:41] LABS: Vitamin A 35 mcg/dL (38-98)
[2022-02-05 10:07] LABS: Vitamin B1 9 nmol/L (8-30)
== END 2022-01-25 16:24 | disposition home or self-care (01) ==
LOC: HO.LAB 16:23
PROVIDERS: PCP Internal Medicine; Visit Provider Physician Assistant Surgical
DX: E66.3 Overweight (principal)
CPT/HCPCS: 36415; 80048; 80061; 82306; 82607; 82728; 82746; 83036; 83525; 83540; 83970; 84425; 84443; 84590; 84630; 85025; 86140

== ENCOUNTER 2022-02-24 21:46 | Emergency (ER) | payer OTHER, SELFPAY ==
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
[2022-02-24 22:05] VITALS: BP 121/74; PULSE 64; RESP 18; TEMP 36.2; O2SAT 100
[2022-02-24 22:22] VITALS: BP 121/74; PULSE 64; RESP 18; TEMP 36.2; O2SAT 100; BMI 26.7
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
[2022-02-25 01:07] VITALS: BP 115/76; PULSE 63; RESP 17; TEMP 36.9; O2SAT 100
== END 2022-02-25 01:35 | disposition home or self-care (01) ==
PROVIDERS: Emergency Provider Emergency Medicine; PCP Internal Medicine
DX: S13.4XXA Sprain of ligaments of cervical spine, initial encounter (principal); V43.62XA Car passenger injured in collision with other type car in traffic accident, initial encounter; M25.561 Pain in right knee; M25.511 Pain in right shoulder; Y93.89 Activity, other specified; Y92.414 Local residential or business street as the place of occurrence of the external cause; Y99.9 Unspecified external cause status
CPT/HCPCS: 73030; 73560; 99282; 99283

== ENCOUNTER → 2022-03-07 09:59 | Outpatient (BNVA) | payer OTHER, SELFPAY | PROVIDERS: PCP Internal Medicine; Visit Provider Physician Assistant | DX: Z47.89 Encounter for other orthopedic aftercare (principal) | CPT/HCPCS: 99212 ==

== ENCOUNTER 2022-03-16 11:05 | Outpatient (REF) | payer OTHER, SELFPAY ==
--- NOTE | ~2022-03-16 | XR_ITS ---
EXAMINATION: CERVICAL, THORACIC AND LUMBAR SPINE. CLINICAL INFORMATION: Pain. COMPARISON: None TECHNIQUE: Lumbar spine 3 views. Dorsal spine 3 views. Cervical spine 3 views. FINDINGS: Lumbar spine: There is normal lumbar lordosis. The vertebral heights, alignment and disc heights are normal. There is no visible acute fracture, dislocation or subluxation seen. SI joints are symmetrical. Incidental finding of an IUD noted. Thoracic spine: There is normal thoracic kyphosis. The vertebral heights and alignment is normal. There is mild scoliosis of mid dorsal spine. The disc heights are maintained normal. No visible acute fracture or lytic or sclerotic process seen. The paravertebral soft tissues are normal. Cervical spine: There is mild straightening of cervical lordosis. The vertebral heights, alignment and disc heights are normal. No visible acute fracture, dislocation or subluxation seen. The prevertebral soft tissues are normal. XR/XR cervical spine 3V IMPRESSION: Mild straightening of cervical lordosis without acute fracture or dislocation. Unremarkable dorsal spine. Unremarkable lumbar spine exam.
--- NOTE | ~2022-03-16 | XR_ITS ---
EXAMINATION: CERVICAL, THORACIC AND LUMBAR SPINE. CLINICAL INFORMATION: Pain. COMPARISON: None TECHNIQUE: Lumbar spine 3 views. Dorsal spine 3 views. Cervical spine 3 views. FINDINGS: Lumbar spine: There is normal lumbar lordosis. The vertebral heights, alignment and disc heights are normal. There is no visible acute fracture, dislocation or subluxation seen. SI joints are symmetrical. Incidental finding of an IUD noted. Thoracic spine: There is normal thoracic kyphosis. The vertebral heights and alignment is normal. There is mild scoliosis of mid dorsal spine. The disc heights are maintained normal. No visible acute fracture or lytic or sclerotic process seen. The paravertebral soft tissues are normal. Cervical spine: There is mild straightening of cervical lordosis. The vertebral heights, alignment and disc heights are normal. No visible acute fracture, dislocation or subluxation seen. The prevertebral soft tissues are normal. XR/XR lumbar spine 2-3V IMPRESSION: Mild straightening of cervical lordosis without acute fracture or dislocation. Unremarkable dorsal spine. Unremarkable lumbar spine exam.
--- NOTE | ~2022-03-16 | XR_ITS ---
EXAMINATION: CERVICAL, THORACIC AND LUMBAR SPINE. CLINICAL INFORMATION: Pain. COMPARISON: None TECHNIQUE: Lumbar spine 3 views. Dorsal spine 3 views. Cervical spine 3 views. FINDINGS: Lumbar spine: There is normal lumbar lordosis. The vertebral heights, alignment and disc heights are normal. There is no visible acute fracture, dislocation or subluxation seen. SI joints are symmetrical. Incidental finding of an IUD noted. Thoracic spine: There is normal thoracic kyphosis. The vertebral heights and alignment is normal. There is mild scoliosis of mid dorsal spine. The disc heights are maintained normal. No visible acute fracture or lytic or sclerotic process seen. The paravertebral soft tissues are normal. Cervical spine: There is mild straightening of cervical lordosis. The vertebral heights, alignment and disc heights are normal. No visible acute fracture, dislocation or subluxation seen. The prevertebral soft tissues are normal. XR/XR thoracic spine 2V IMPRESSION: Mild straightening of cervical lordosis without acute fracture or dislocation. Unremarkable dorsal spine. Unremarkable lumbar spine exam.
== END 2022-03-16 11:06 | disposition home or self-care (01) ==
LOC: HO.HMGCX 11:05
PROVIDERS: PCP Internal Medicine; Visit Provider Chiropractor
DX: M54.2 Cervicalgia (principal); M54.6 Pain in thoracic spine; M54.50 Low back pain, unspecified
CPT/HCPCS: 72040; 72070; 72100

== ENCOUNTER 2022-03-20 08:44 | Outpatient (REF) | payer OTHER, SELFPAY ==
[2022-03-20 11:51] LABS: MANUAL DIFF FLAG NO
[2022-03-20 12:06] LABS: Basophils Percent Auto 0.5 % (0-2); Eosinophils Absolute Auto 0.1 X10*3/uL (0.0-0.4); Eosinophils Percent Auto 2.8 % (0-4); Hematocrit 38.7 % (37.0-47.0); Hemoglobin 12.7 g/dl (12.0-16.0); Imm Gran Abs Auto 0.01 X10*3/uL (0.00-0.03); Imm Gran Pct Auto 0.3 % (0.0-0.4); Lymphocytes Absolute Auto 2.2 X10*3/uL (1.2-4.9); Lymphocytes Percent Auto 56.1 % (20-40); Mean Corpuscular HGB Conc 32.8 g/dl (31.0-35.0); Mean Corpuscular Volume 91.5 fL (80.0-98.0); Mean Platelet Volume 10.3 fL (9.4-12.3); Monocytes Absolute Auto 0.3 X10*3/uL (0.1-1.2); Monocytes Percent Auto 6.6 % (2-11); Neutrophils Absolute Auto 1.3 x10*3/uL (2.0-8.3); Neutrophils Percent Auto 33.7 % (45-73); Platelet Count 202 X10*3/uL (160-400); Red Blood Count 4.23 X10*6/uL (4.20-5.50); Red Cell Distribution Width 12.3 % (11.0-16.0); White Blood Count 3.9 X10*3/uL (4.8-10.8)
[2022-03-20 12:08] LABS: INTERNATIONAL NORM RATIO 0.9 (0.9-1.1); Prothrombin Time 10.6 SEC (10.0-13.1)
[2022-03-20 12:11] LABS: Partial Thromboplastin Time 35.4 SEC (26.0-36.4)
[2022-03-20 12:21] LABS: Alanine Aminotransferase 11 U/L (0-31); Albumin Level 4.2 g/dL (3.5-5.0); Alkaline Phosphatase 52 U/L (39-117); Anion Gap 14 (12-20); Aspartate Amino Transferase 12 U/L (5-31); Bilirubin Total 0.8 mg/dL (0.0-1.0); Blood Urea Nitrogen 12 mg/dL (9-16); Calcium 9.1 mg/dL (8.4-10.2); Carbon Dioxide 26 mmol/L (22-29); Chloride 106 mmol/L (96-108); Estimated Glomerular Filt Rate > 60; Glucose Random 87 mg/dL (60-115); Potassium 4.3 mmol/L (3.3-5.1); Sodium 142 mmol/L (135-145); Total Protein 6.6 g/dL (6.5-8.0)
[2022-03-20 12:37] LABS: HBS Num1 34.45 mIU/mL (0-7.99); HBc Num1 0.08 S/CO (0.00-0.79); HIV AB/AG Nonreactive (Nonreactive); HIV Num 1 0.04 S/CO (0.00-0.99); Hepatitis B Core Antibody Nonreactive (Nonreactive); Hepatitis B Surface Antigen Negative (Negative); ~HepC Num1 0.08 S/CO (0.00-0.79); ~Hepatitis B Surface Antibody REACTIVE (Nonreactive); ~Hepatitis C Antibody Nonreactive (Nonreactive)
[2022-03-23 18:25] LABS: Treponema pallidum Ab FTA ABS Nonreactive (Nonreactive)
== END 2022-03-20 08:45 | disposition home or self-care (01) ==
LOC: HO.HMGCLDS 08:44
PROVIDERS: PCP Internal Medicine; Visit Provider Internal Medicine
DX: Z11.4 Encounter for screening for human immunodeficiency virus [HIV] (principal); R79.89 Other specified abnormal findings of blood chemistry; Z98.84 Bariatric surgery status
CPT/HCPCS: 36415; 80053; 85025; 85610; 85730; 86704; 86706; 86780; 86803; 86900; 86901; 87340; 87389

== ENCOUNTER → 2022-07-04 12:58 | Outpatient (BNVA) | payer OTHER, SELFPAY | PROVIDERS: PCP Internal Medicine; Visit Provider Physician Assistant Surgical | DX: Z98.84 Bariatric surgery status (principal) | CPT/HCPCS: 99212 ==

== ENCOUNTER 2022-09-07 08:09 | Outpatient (REF) | payer OTHER, SELFPAY ==
[2022-09-07 08:21] LABS: MANUAL DIFF FLAG NO
[2022-09-07 09:58] LABS: Basophils Percent Auto 0.4 % (0-2); Eosinophils Absolute Auto 0.1 X10*3/uL (0.0-0.4); Eosinophils Percent Auto 1.1 % (0-4); Hematocrit 37.2 % (37.0-47.0); Hemoglobin 12.6 g/dl (12.0-16.0); Imm Gran Abs Auto 0.01 X10*3/uL (0.00-0.03); Imm Gran Pct Auto 0.2 % (0.0-0.4); Lymphocytes Absolute Auto 2.1 X10*3/uL (1.2-4.9); Lymphocytes Percent Auto 45.7 % (20-40); Mean Corpuscular HGB Conc 33.9 g/dl (31.0-35.0); Mean Corpuscular Hemoglobin 30.7 pg (27.0-33.0); Mean Corpuscular Volume 90.5 fL (80.0-98.0); Mean Platelet Volume 10.5 fL (9.4-12.3); Monocytes Absolute Auto 0.4 X10*3/uL (0.1-1.2); Monocytes Percent Auto 8.3 % (2-11); Neutrophils Percent Auto 44.3 % (45-73); Platelet Count 220 X10*3/uL (160-400); Red Blood Count 4.11 X10*6/uL (4.20-5.50); Red Cell Distribution Width 12.5 % (11.0-16.0); White Blood Count 4.6 X10*3/uL (4.8-10.8)
[2022-09-07 12:51] LABS: Alanine Aminotransferase 9 U/L (0-31); Albumin Level 3.9 g/dL (3.5-5.0); Alkaline Phosphatase 60 U/L (39-117); Anion Gap 11 (12-20); Aspartate Amino Transferase 14 U/L (5-31); Bilirubin Total 1.1 mg/dL (0.0-1.0); Blood Urea Nitrogen 8 mg/dL (9-16); Calcium 8.7 mg/dL (8.4-10.2); Carbon Dioxide 28 mmol/L (22-29); Chloride 107 mmol/L (96-108); Cholesterol 141 mg/dL; Estimated Glomerular Filt Rate > 60; Glucose Random 78 mg/dL (60-115); HDL Cholesterol 54 mg/dL; LDL Cholesterol Calculated 75 mg/dl; Magnesium 1.8 mg/dL (1.6-2.6); Phosphorus 3.7 mg/dL (2.7-4.5); Potassium 4.5 mmol/L (3.3-5.1); Sodium 141 mmol/L (135-145); Total Protein 6.2 g/dL (6.5-8.0); Triglycerides 60 mg/dL
[2022-09-07 13:04] LABS: Folate 15.6 ng/mL (> or = 4.0); Free T4 (Free Thyroxine) 0.79 ng/dL (0.71-1.85); Thyroid Stimulating Hormone 1.86 uIU/mL (0.32-4.0); Vitamin B12 238 pg/mL (200-900); Vitamin D 25-OH Total 25.7 ng/mL (>30)
== END 2022-09-07 08:10 | disposition home or self-care (01) ==
LOC: HO.LAB 08:09
PROVIDERS: PCP Internal Medicine; Visit Provider Internal Medicine
DX: I73.9 Peripheral vascular disease, unspecified (principal); E78.00 Pure hypercholesterolemia, unspecified; E55.9 Vitamin D deficiency, unspecified
CPT/HCPCS: 36415; 80053; 80061; 82306; 82607; 82746; 83735; 84100; 84439; 84443; 85025

== ENCOUNTER 2022-09-17 15:24 | Outpatient (REF) | payer OTHER, SELFPAY ==
[2022-09-23 17:54] LABS: HPV 16 RNA NOT DETECTED (NOT DETECTED); HPV mRNA E6/E7 rflx Detected (Not Detected)
== END 2022-09-17 15:25 | disposition home or self-care (01) ==
LOC: HO.LNP 15:24
PROVIDERS: PCP Internal Medicine; Visit Provider Obstetrics & Gynecology
DX: Z01.419 Encounter for gynecological examination (general) (routine) without abnormal findings (principal); Z11.51 Encounter for screening for human papillomavirus (HPV)
CPT/HCPCS: 87624; 87625; 88142

== ENCOUNTER 2022-10-23 09:03 | Outpatient (REF) | payer OTHER, SELFPAY ==
--- NOTE | ~2022-10-23 | MM_ITS ---
EXAMINATION: MM SCREENING DIGITAL BREAST TOMOSYNTHESIS, BILATERAL CLINICAL INFORMATION: Screening. Asymptomatic. The lifetime risk of breast cancer based on the Tyrer-Cuzick Model is 7.7%. COMPARISON: Mammography: None TECHNIQUE: Digital breast tomosynthesis is performed in both the craniocaudal and mediolateral oblique views along with computer-aided detection (CAD). Synthesized 2D images are generated from the tomosynthesis. FINDINGS: There are scattered areas of fibroglandular density (ACR BI-RADS breast composition Category b). There are no significant masses, abnormal calcifications, or other abnormalities. MM/MM tomosynthesis screening BI IMPRESSION: No mammographic evidence of malignancy. ASSESSMENT: BI-RADS 1: Negative RECOMMENDATION: Routine annual mammography screening. This patient's information was entered into a reminder system with a target due date for their next mammogram.
== END 2022-10-23 09:04 | disposition home or self-care (01) ==
LOC: HO.MAMMO 09:03
PROVIDERS: PCP Internal Medicine; Visit Provider Internal Medicine
DX: Z12.31 Encounter for screening mammogram for malignant neoplasm of breast (principal)
CPT/HCPCS: 77063; 77067

== ENCOUNTER 2022-10-24 14:33 | Outpatient (REF) | payer OTHER, SELFPAY | END 2022-10-24 14:34 | disposition home or self-care (01) | LOC: HO.LNP 14:33 | PROVIDERS: PCP Internal Medicine; Visit Provider Obstetrics & Gynecology | DX: R87.810 Cervical high risk human papillomavirus (HPV) DNA test positive (principal); R87.610 Atypical squamous cells of undetermined significance on cytologic smear of cervix (ASC-US) | CPT/HCPCS: 57454; 81025; 88305 ==

== ENCOUNTER → 2022-11-19 12:19 | Outpatient (BNVA) | payer OTHER, SELFPAY | PROVIDERS: PCP Internal Medicine; Visit Provider Obstetrics & Gynecology | DX: Z30.433 Encounter for removal and reinsertion of intrauterine contraceptive device (principal) | CPT/HCPCS: 58300; 58301; 81025; J7298 ==

== ENCOUNTER → 2022-12-24 15:08 | Outpatient (BNVA) | payer OTHER, SELFPAY | PROVIDERS: PCP Internal Medicine; Visit Provider Obstetrics & Gynecology | DX: Z30.431 Encounter for routine checking of intrauterine contraceptive device (principal) | CPT/HCPCS: 81025 ==

== ENCOUNTER 2023-01-08 13:08 | Outpatient (AMB) | payer OTHER, SELFPAY ==
[2023-01-08 13:10] VITALS: BP 100/62; PULSE 59; TEMP 36.5; O2SAT 99; BMI 27.0
--- NOTE | 2023-01-08 13:10 | A.OFFVIS_ITS ---
Intake VS Expanded 01/08/23 13:10 Height 5 ft 3 in Weight 152 lb 3.2 oz BMI 27.0 BP 100/62 Blood Pressure Location Rt brachial Blood Pressure Position Sitting Pulse 59 Pulse Source Pulse Oximeter Temp 97.7 F Temperature Source Temporal Artery Scan Pulse Oximetry 99 Oxygen Delivery Method Room Air Body Fat 40.6 Body Fat Percentage 26.7 Free Fat Mass 111.6 Muscle Mass 105.8 Visceral Mass 4.0 Water Mass 79.6 BMR 1,493 Intake Visit Reasons: (OV) LSG 12/28/20 Telephone Information Clerk Required: No Allergies house dust mite Allergy (Intermediate, Verified 01/08/23 13:12) Rash latex Allergy (Intermediate, Verified 01/08/23 13:12) Rash seafood Allergy (Intermediate, Verified 01/08/23 13:12) Swelling, Hives shellfish derived [SHELLFISH DERIVED] Allergy (Intermediate, Verified 01/08/23 13:12) HIVES,SWELLING pollen extracts Adverse Reaction (Intermediate, Verified 01/08/23 13:12) Sneezing Medication List - Last Reconciled 01/08/23 by ONESIMO Lockwood albuterol sulfate 90 mcg/actuation 1 inh inhalation Q4-6H PRN calcium citrate 1,000 mg PO DAILY cetirizine (Zyrtec) 10 mg PO DAILY PRN epinephrine 1 IM DIRECTED levonorgestrel (Mirena) intrauterine ghoxeugzyfmw-trv-koyo-FA-vit K 45 mg iron- 800 mcg-120 mcg (Bariatric Multivitamins) 1 cap PO DAILY HPI HPI Comments History of Present Illness Details This?a?42?yo female who is s/p LSG without hiatal hernia repair on?12/28/[address] Alonso. Presents for 2 year post op visit. Weight today is 152.2 pounds, with a BMI of 27.? There has been a 59.8 pound weight loss,(initial weight 212 pounds) since starting the program on 08/08/18 reflecting a 28.2% total body weight loss and a weight loss of 56 pounds since surgery (operative weight 208.2 pounds) reflecting a 26.8% TBWL since surgery.? No complaints of nausea, emesis, abdominal pain or reflux. Reports lower abdominal discomfort assoc w constipation. BM daily. Wants to switch to Bariatric fusion She had panniculectomy, liposuction and BBL in [facility] on 04/25/22.? She was able to fly back to [place] 17 days later.? She reports she has healed and has no complaints.? She is back at the gym this week.? Present meal plan includes: 930-1100 am [employer] shake 2 pm small meal, or [employer] shake 6 pm dinner: chicken or ground beef turkey, 3 [place], 2 forks veg Drinkin-64 oz water daily Exercise routine includes: walking daily and weight training? Any post op complications: none MAHENDRA: never DM: never HTN: never Hyperlipidemia: never GERD:?0-5 scale ??0 = no symptoms ??1 = symptoms noticeable but not bothersome 2 =symptoms bothersome but not daily ? 3 = symptoms bothersome and daily 4 = symptoms affect daily activities 5 = symptoms are incapacitating, unable to do daily activities ? How bad is the heartburn: 0 ? Heartburn while lying down: 0 ? Heartburn when standing up: 0 ? Heartburn after meals: 0 ? Does heartburn change your diet: 0 ? Does heartburn wake you up from sleep: 0 ? Do you have difficulty swallowin ? Do you have pain with swallowin ? If you take medicine for your reflux, does this affect your daily life: 0 Satisfaction with present condition - satisfied or not satisfied: satisfied [facility] Medical History Abnormal uterine bleeding Abnormal uterine bleeding (AUB) Adjustment disorder, unspecified Anxiety and depression Asthma Bilateral nephrolithiasis Carpal tunnel syndrome, right Cellulitis Constipation Dark yellow-colored urine GERD (gastroesophageal reflux disease) Gestational diabetes H. pylori duodenitis Hip pain, right Iron deficiency anemia Knee effusion, right Knee pain, right Menorrhagia Migraines Obesity (BMI 30-39.9) Patellar instability of both knees Patellar instability of right knee Polyarthralgia Pre-op evaluation Preoperative examination Right ACL tear Right renal stone Shortness of breath Talar fracture Ulnar neuropathy Vitamin B 12 deficiency Vitamin D deficiency Surgical History Gastric banding status H/O: History of esophagogastroduodenoscopy (EGD) History of removal of laparoscopic gastric banding device Hx laparoscopic cholecystectomy Hx of knee surgery Hx of laparoscopic gastric banding Hx of plastic surgery S/P laparoscopic sleeve gastrectomy Family History Father Diabetes HTN (hypertension) AA (alcohol abuse) Stomach ulcer Cirrhosis Substance abuse Mother No problems noted. Sister Diabetes Substance abuse Bipolar 1 disorder Brother Diabetes Glaucoma Substance abuse Bipolar 1 disorder Daughter Asthma Chronic eczema Maternal Grandmother Myocardial infarct Bipolar 1 disorder Paternal Grandfather Myocardial infarct Paternal Uncle Substance abuse Liver cancer Throat cancer Other FHx: mental illness Social History Household Members: Children Housing: House Are you a primary managed care analyst to a significant other at home: No Do you presently have visiting nurse or other home services: No Alcohol intake: current Alcohol intake frequency: holidays/special occasions only Patient Tobacco Use Status: Never used Tobacco e-Cigarette/Vaping Use: Never Used Second Hand Smoke Exposure: No service: No Current occupational status: employed 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 Sexual orientation: Straight/Heterosexual Gender identity: Female Cognitive needs: No Hearing needs: No Vision needs: No Female Reproductive History Menstrual Age of Menarche: 13 Review of Systems Const All systems reviewed & are unremarkable except as noted in HPI and below Physical Exam Vital Signs: Last Vital Signs Temp 97.7 F 01/08/23 13:10 Pulse 59 01/08/23 13:10 BP 100/62 01/08/23 13:10 Pulse Ox 99 01/08/23 13:10 Oxygen Delivery Method Room Air 01/08/23 13:10 BMI result Body Mass Index 27.0 Const General: cooperative and no acute distress Orientation/consciousness: patient oriented x3 Resp Effort & Inspection: normal respiratory effort Auscultation: clear to auscultation bilaterally Cardio Rate: regular rate Rhythm: regular rhythm GI Inspection: Yes normal to inspection and Yes incision (well healed) Palpation (GI): Soft to palpation and no masses Neuro General: patient oriented x3 Assessment & Plan Assessment & Plan (1) Overweight: Code(s): E66.3 - Overweight Plan: check yearly labs Add senna qhs prn add weight training 3 x per week with the help of a operational trainer at first rtc 1 year change to fusion MVI BID and Asif+D daily Orders: Orders Complete Blood Count Auto Diff Today E66.3 - Overweight, Z98.84 - Bariatric surgery status Basic Metabolic Panel Today E66.3 - Overweight, Z98.84 - Bariatric surgery status TSH reflex Free T4 Today E66.3 - Overweight, Z98.84 - Bariatric surgery status Lipid Panel Today E66.3 - Overweight, Z98.84 - Bariatric surgery status Vitamin B12 and Folate Today E66.3 - Overweight, Z98.84 - Bariatric surgery status Ferritin Today E66.3 - Overweight, Z98.84 - Bariatric surgery status IRON PROFILE Today E66.3 - Overweight, Z98.84 - Bariatric surgery status PTHI Today E66.3 - Overweight, Z98.84 - Bariatric surgery status Vitamin A Today E66.3 - Overweight, Z98.84 - Bariatric surgery status Vitamin B1 Today E66.3 - Overweight, Z98.84 - Bariatric surgery status Vitamin D 25-OH Total Today E66.3 - Overweight, Z98.84 - Bariatric surgery status Zinc Today E66.3 - Overweight, Z98.84 - Bariatric surgery status Medications: New sennosides (senna) 17.2 mg (2 x 8.6 mg) PO BEDTIME 90 days PRN 180 tabs 0RF constipation Coding Level of Care Code Est Pt Level 4 (33045) Diagnoses Overweight E66.3 Time Spent (min) 40
== END 2023-01-08 13:48 | disposition home or self-care (01) ==
PROVIDERS: PCP Internal Medicine; Visit Provider Physician Assistant Surgical
DX: E66.3 Overweight (principal); Z68.27 Body mass index [BMI] 27.0-27.9, adult; Z90.3 Acquired absence of stomach [part of]; Z98.84 Bariatric surgery status
CPT/HCPCS: 99214

== ENCOUNTER → 2023-01-08 13:08 | Outpatient (BNVA) | payer OTHER, SELFPAY | PROVIDERS: PCP Internal Medicine; Visit Provider Physician Assistant Surgical | DX: E66.3 Overweight (principal); Z68.27 Body mass index [BMI] 27.0-27.9, adult | CPT/HCPCS: 99212 ==

== ENCOUNTER 2023-01-09 09:56 | Outpatient (REF) | payer OTHER, SELFPAY ==
[2023-01-09 10:16] LABS: MANUAL DIFF FLAG NO
[2023-01-09 10:44] LABS: Basophils Percent Auto 0.2 % (0-2); Eosinophils Percent Auto 0.9 % (0-4); Hematocrit 37.2 % (37.0-47.0); Hemoglobin 12.3 g/dl (12.0-16.0); Imm Gran Abs Auto 0.01 X10*3/uL (0.00-0.03); Imm Gran Pct Auto 0.2 % (0.0-0.4); Lymphocytes Absolute Auto 1.9 X10*3/uL (1.2-4.9); Lymphocytes Percent Auto 41.5 % (20-40); Mean Corpuscular HGB Conc 33.1 g/dl (31.0-35.0); Mean Corpuscular Hemoglobin 30.2 pg (27.0-33.0); Mean Corpuscular Volume 91.4 fL (80.0-98.0); Mean Platelet Volume 10.3 fL (9.4-12.3); Monocytes Absolute Auto 0.4 X10*3/uL (0.1-1.2); Monocytes Percent Auto 7.7 % (2-11); Neutrophils Absolute Auto 2.3 x10*3/uL (2.0-8.3); Neutrophils Percent Auto 49.5 % (45-73); Platelet Count 211 X10*3/uL (160-400); Red Blood Count 4.07 X10*6/uL (4.20-5.50); Red Cell Distribution Width 12.2 % (11.0-16.0); White Blood Count 4.6 X10*3/uL (4.8-10.8)
[2023-01-09 11:41] LABS: Anion Gap 12 (12-20); Blood Urea Nitrogen 8 mg/dL (9-16); Calcium 9.6 mg/dL (8.4-10.2); Carbon Dioxide 25 mmol/L (22-29); Chloride 107 mmol/L (96-108); Cholesterol 136 mg/dL; Estimated Glomerular Filt Rate > 60; Glucose Random 79 mg/dL (60-115); HDL Cholesterol 56 mg/dL; Iron 149 mcg/dL (30-160); LDL Cholesterol Calculated 66 mg/dl; Percent Iron Saturation 53 % (15-50); Potassium 4.2 mmol/L (3.3-5.1); Sodium 140 mmol/L (135-145); Total Iron Binding Capacity 281 mcg/dL (228-428); Triglycerides 71 mg/dL; Unsaturated Iron Binding 132 ug/dL
[2023-01-09 11:48] LABS: Ferritin 27 ng/mL (10-250); Vitamin D 25-OH Total 25.8 ng/mL (>30)
[2023-01-09 11:53] LABS: Folate 14.4 ng/mL (> or = 4.0); Vitamin B12 218 pg/mL (200-900)
[2023-01-10 13:37] LABS: Calcium (PTHI) 9.3 mg/dL (8.6-10.2); PTHI 55 pg/mL (16-77)
[2023-01-13 15:58] LABS: Vitamin B1 12 nmol/L (8-30)
[2023-01-15 07:33] LABS: Zinc 57 mcg/dL (60-130)
[2023-01-16 20:43] LABS: Vitamin A 34 mcg/dL (38-98)
== END 2023-01-09 09:57 | disposition home or self-care (01) ==
LOC: HO.LAB 09:56
PROVIDERS: PCP Internal Medicine; Visit Provider Physician Assistant Surgical
DX: E66.3 Overweight (principal); Z98.84 Bariatric surgery status
CPT/HCPCS: 36415; 80048; 80061; 82306; 82607; 82728; 82746; 83540; 83970; 84425; 84443; 84590; 84630; 85025

== ENCOUNTER 2023-08-02 13:42 | Outpatient (AMB) | payer OTHER, SELFPAY ==
[2023-08-02 13:48] VITALS: BP 120/76; PULSE 62; TEMP 36.3; O2SAT 96; BMI 28.2
--- NOTE | 2023-08-02 13:48 | MHC.OFFWIV ---
Intake Vital Signs 08/02/23 13:48 Height 5 ft 3 in Weight 159 lb BMI 28.2 BP 120/76 Blood Pressure Location Lt brachial Position Sitting Pulse 62 Pulse Source Pulse Oximeter Temp 97.3 F Temp Source Temporal Artery Scan Pulse Oximetry (%) 96 Oxygen Delivery Method Room Air Intake Visit Reasons: EP congestion nasal drip [id number] Intake Note: pt is here today for congestion nasal drip started 4 days ago Patient Tobacco Use Status: Never used Tobacco Allergies house dust mite Allergy (Intermediate, Verified 08/02/23 13:50) Rash latex Allergy (Intermediate, Verified 08/02/23 13:50) Rash seafood Allergy (Intermediate, Verified 08/02/23 13:50) Swelling, Hives shellfish derived [SHELLFISH DERIVED] Allergy (Intermediate, Verified 08/02/23 13:50) HIVES,SWELLING pollen extracts Adverse Reaction (Intermediate, Verified 08/02/23 13:50) Sneezing Do you need a note to return to daycare/school/sports/work: No HPI HPI Comments History of Present Illness Details This is a 43-year-old female with past medical history significant for mild intermittent asthma who presented to the walk-in clinic today complaining of chest congestion and dry cough x4 days. She reports diffuse chest tightness with the cough but denies any chest pain. She denies any shortness a breath. She denies any abdominal pain or nausea/vomiting/diarrhea. She denies any fever/chills. She denies any sputum production. She states she has been taking her rescue inhaler as needed; however, she used to be on a maintenance inhaler she has been off of this for many years. [facility] Medical History Abnormal uterine bleeding Abnormal uterine bleeding (AUB) Adjustment disorder, unspecified Anxiety and depression Asthma Bilateral nephrolithiasis Carpal tunnel syndrome, right Cellulitis Constipation Dark yellow-colored urine GERD (gastroesophageal reflux disease) Gestational diabetes H. pylori duodenitis Hip pain, right Iron deficiency anemia Knee effusion, right Knee pain, right Menorrhagia Migraines Obesity (BMI 30-39.9) Patellar instability of both knees Patellar instability of right knee Polyarthralgia Pre-op evaluation Preoperative examination Right ACL tear Right renal stone Shortness of breath Talar fracture Ulnar neuropathy Vitamin B 12 deficiency Vitamin D deficiency Surgical History Gastric banding status H/O: History of esophagogastroduodenoscopy (EGD) History of removal of laparoscopic gastric banding device Hx laparoscopic cholecystectomy Hx of knee surgery Hx of laparoscopic gastric banding Hx of plastic surgery S/P laparoscopic sleeve gastrectomy Family History Father Diabetes HTN (hypertension) AA (alcohol abuse) Stomach ulcer Cirrhosis Substance abuse Mother No problems noted. Sister Diabetes Substance abuse Bipolar 1 disorder Brother Diabetes Glaucoma Substance abuse Bipolar 1 disorder Daughter Asthma Chronic eczema Maternal Grandmother Myocardial infarct Bipolar 1 disorder Paternal Grandfather Myocardial infarct Paternal Uncle Substance abuse Liver cancer Throat cancer Other FHx: mental illness Social History Household Members: Children Housing: House Are you a primary healthcare network consultant to a significant other at home: No Do you presently have visiting nurse or other home services: No Alcohol intake: current Alcohol intake frequency: holidays/special occasions only Patient Tobacco Use Status: Never used Tobacco e-Cigarette/Vaping Use: Never Used Second Hand Smoke Exposure: No service: No Current occupational status: employed 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 Sexual orientation: Straight/Heterosexual Gender identity: Female Cognitive needs: No Hearing needs: No Vision needs: No Female Reproductive History Menstrual Age of Menarche: 13 Review of Systems Const All systems reviewed & are unremarkable except as noted in HPI and below Reports no additional complaints Eyes Reports no additional complaints ENT Reports no additional complaints Card Reports no additional complaints Resp Reports no additional complaints GI Reports no additional complaints Reports no additional complaints Musc Reports no additional complaints Skin/Breast Reports system reviewed and no additional complaints, except as documented Neuro Reports no additional complaints Psych Reports no additional complaints Endo Reports no additional complaints Jc/Lymph Reports no additional complaints Aller/Immun Reports no additional complaints Physical Exam Vital Signs: Last Vital Signs Temp 97.3 F 08/02/23 13:48 Pulse 62 08/02/23 13:48 BP 120/76 08/02/23 13:48 Pulse Ox 96 08/02/23 13:48 Oxygen Delivery Method Room Air 08/02/23 13:48 BMI result Body Mass Index 28.2 Const Other: Vital signs reviewed. Constitutional: Non-toxic appearing. No acute distress. Well-developed and well-nourished. HEENT: Normocephalic and atraumatic. Moist mucous membranes. No pharyngeal erythema or exudates. Skin: Warm and dry. No rashes or lesions noted. Neck: Full and painless range of motion. No cervical lymphadenopathy. Cardio: Regular rate and rhythm. No murmurs, gallops, or rubs. No lower extremity edema. No JVD. Pulmonary: No respiratory distress. No accessory muscle usage. Clear to auscultation bilaterally without wheezing, crackles, or rhonchi. Gastrointestinal: Soft, nontender, and nondistended in all 4 quadrants. Musculoskeletal: Normal range of motion in joints throughout the body. No deformity or other signs of injury. Neuro: Alert and oriented x4. Cranial nerves 2-12 grossly intact. No focal deficits appreciated. Psych: Normal mood and affect. Assessment & Plan Assessment & Plan (1) Respiratory tract infection: Code(s): J98.8 - Other specified respiratory disorders Plan: This is a 43-year-old female presenting to the office complaining of chest congestion, chest tightness, and a dry cough x4 days. On physical examination, the patient has minimal end expiratory wheezing. The patient could possibly have an acute bronchitis in the setting of a viral respiratory tract infection. I recommended p.o. prednisone 40 mg daily x5 days; however, the patient states she does not like taking steroids so she declined at this time. The patient is otherwise hemodynamically stable and she is maintaining oxygen saturations on room air. I recommended [id number] expectorant such as guaifenesin to help with her chest congestion and recommended to continue with her rescue inhaler as needed. Patient was encouraged to call her primary care physician for a refill on her maintenance inhaler if necessary. Patient verbalized her understanding and she was in agreement with the plan. Coding Level of Care Code Est Pt Level 3 (10337) Diagnoses Respiratory tract infection J98.8
== END 2023-08-02 16:09 | disposition home or self-care (01) ==
PROVIDERS: PCP Internal Medicine; Visit Provider Physician Assistant Medical
DX: J98.8 Other specified respiratory disorders (principal)
CPT/HCPCS: 99213

== ENCOUNTER 2023-08-05 11:56 | Outpatient (AMB) | payer OTHER, SELFPAY ==
--- NOTE | 2023-08-05 11:56 | A.OFFPC_ITS ---
Intake Visit Reasons: Cold Symptoms Allergies house dust mite Allergy (Intermediate, Verified 08/05/23 11:57) Rash latex Allergy (Intermediate, Verified 08/05/23 11:57) Rash seafood Allergy (Intermediate, Verified 08/05/23 11:57) Swelling, Hives shellfish derived [SHELLFISH DERIVED] Allergy (Intermediate, Verified 08/05/23 11:57) HIVES,SWELLING pollen extracts Adverse Reaction (Intermediate, Verified 08/05/23 11:57) Sneezing Medication List - Last Reconciled 08/05/23 by Flores Cesar MD albuterol sulfate 90 mcg/actuation (Ventolin HFA) 2 puffs inhalation Q6H PRN azithromycin (Zithromax) For 250 mg dose pack: take 500 mg today (day 1), then 250 mg for 4 days (days 2-5) PO budesonide 180 mcg/actuation (Pulmicort Flexhaler) 1 inh inhalation BID calcium citrate 1,000 mg PO DAILY cetirizine (Zyrtec) 10 mg PO DAILY PRN epinephrine 1 IM DIRECTED levonorgestrel (Mirena) intrauterine ftcrirtroagj-roy-xmhd-FA-vit K 45 mg iron- 800 mcg-120 mcg (Bariatric Multivitamins) 1 cap PO DAILY sennosides (senna) 17.2 mg (2 x 8.6 mg) PO BEDTIME PRN 90 days Tobacco use date assessed: 08/05/23 Dental Screening Dental Screen Date: 08/05/23 Did you have a dental visit in the last 12 months?: Yes Did you have a dental problem in the last 6 months where you did not have access to dental care?: No Was dental information given to patient?: Patient has dentist HPI Cold Symptoms HPI Details 43-year-old overweight female with a his tory of laparoscopic sleeve gastrectomy coming in for an acute problem last seen in August 2022. Patient was seen by the nurse practitioner in August 02 for nasal congestion diagnosis of respiratory tract infection and was treated with prednisone. chest tightness and sore throat, treated with Bronchitis. states was . chest pain also - [facility] Medical History (Updated 08/05/23 @ 13:23 by Flores Cesar MD) Pre-op evaluation Abnormal uterine bleeding (AUB) Right ACL tear Abnormal uterine bleeding Patellar instability of right knee Knee effusion, right Menorrhagia Hip pain, right Knee pain, right Cellulitis Shortness of breath Preoperative examination Asthma Adjustment disorder, unspecified Bilateral nephrolithiasis Vitamin B 12 deficiency Right renal stone Dark yellow-colored urine H. pylori duodenitis Polyarthralgia Constipation Gestational diabetes Talar fracture Iron deficiency anemia Vitamin D deficiency Ulnar neuropathy Carpal tunnel syndrome, right Anxiety and depression Patellar instability of both knees Migraines GERD (gastroesophageal reflux disease) Obesity (BMI 30-39.9) Surgical History Hx of plastic surgery Hx of knee surgery History of esophagogastroduodenoscopy (EGD) History of removal of laparoscopic gastric banding device S/P laparoscopic sleeve gastrectomy Gastric banding status Hx laparoscopic cholecystectomy Hx of laparoscopic gastric banding H/O: Family History Father Diabetes HTN (hypertension) AA (alcohol abuse) Stomach ulcer Cirrhosis Substance abuse Mother No problems noted. Sister Diabetes Substance abuse Bipolar 1 disorder Brother Diabetes Glaucoma Substance abuse Bipolar 1 disorder Daughter Asthma Chronic eczema Maternal Grandmother Myocardial infarct Bipolar 1 disorder Paternal Grandfather Myocardial infarct Paternal Uncle Substance abuse Liver cancer Throat cancer Other FHx: mental illness Social History Household Members: Children Housing: House Are you a primary healthcare science specialist to a significant other at home: No Do you presently have visiting nurse or other home services: No Alcohol intake: current Alcohol intake frequency: holidays/special occasions only Patient Tobacco Use Status: Never used Tobacco e-Cigarette/Vaping Use: Never Used Second Hand Smoke Exposure: No service: No Current occupational status: employed 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 1. Little interest or pleasure in doing things: not at all 2. Feeling down, depressed, or hopeless: not at all 3. Trouble falling or staying asleep, or sleeping too much: not at all 4. Feeling tired or having little energy: not at all 5. Poor appetite or overeating: not at all 6. Feeling bad about yourself - or that you are a failure or have let yourself or your family down: not at all 7. Trouble concentrating on things, such as reading the newspaper or watching television: not at all 8. Moving or speaking so slowly that other people could have noticed. Or the opposite - being so fidgety or restless that you have been moving around a lot more than usual: not at all 9. Thoughts that you would be better off or of hurting yourself in some way: not at all Total score: 0 Depression Screening Interpretation: Negative Depression Screening Done: Yes Source: Developed by Drs. Stephen Devlin, Gabriela Jenkins, Reddy Garcia and colleagues, with an educational beto from [employer]. Thrive Questionnaire Date Thrive assessed: 08/05/23 I am a: Patient What is your living situation today?: I have a steady place to live Within the past 12 months, did the food you bought not last and you didn't have the money to get more?: Never true Within the past 12 months, did you worry whether your food would run out before you got money to buy more?: Never true Do you have trouble paying for medicines?: No Do you have trouble getting transportation to medical appointments?: No Do you have trouble paying your heating and electricity bill?: No Do you have trouble taking care of your child, family member or friend?: No Do you have trouble with day-to-day activities such as bathing, preparing meals, shopping, managing finances, etc.?: No Are you currently unemployed and looking for a job?: No Are you interested in more education?: No Currently or been in a relationship where the following occur: no concerns reported THRIVE Score: 0 AUDIT C Alcohol Use Questionnaire (AUDIT-C) 1. How often do you have a drink containing alcohol?: Never 3. How often do you have six or more drinks on one occasion?: Never Total Score: 0 KINZA-7 AMB Questionnaire KINZA-7 Date KINZA - 7 assessed: 08/05/23 Feeling nervous, anxious, or on edge: 0 = Not at all Not being able to stop or control worryin = Not at all Worrying too much about different things: 0 = Not at all Trouble relaxin = Not at all Being so restless that it is hard to sit still: 0 = Not at all Becoming easily annoyed or irritable: 0 = Not at all Feeling afraid as if something awful might happen: 0 = Not at all Total KINZA-7 score (0-4 normal; 5-9 mild; 10-14 moderate; 15-21 severe): 0 Source: Developed by Drs. Stephen Devlin, Gabriela Jenkins, Reddy Garcia and colleagues, with an educational beto from [employer]. Physical exam (Primary Care) Tobacco/Smoking Status: Tobacco use Status Tobacco use date assessed 08/05/23 08/05/23 11:58 Patient Tobacco Use Status Never used Tobacco 08/05/23 11:58 e-Cigarette/Vaping Use Never Used 08/05/23 11:58 PHQ-9: PHQ-9 Score PHQ-9: Total score 0 08/05/23 11:58 Depression Screening Interpretation: Negative Thrive Assessment: Date of Thrive Assessment Date Thrive assessed 08/05/23 08/05/23 11:58 Currently or been in a relationship where the following occur: no concerns reported Telehealth Telehealth Location of provider rendering services: practice address Location of patient: address on file Patient Identification confirmed using: Name, : Yes Telehealth method: video (Iphone) Patient verbally consented to treatment: Yes Patient verbally consented to billing insurance company: Yes Patient informed of any privacy concerns related to visit: Yes Minutes spent on Phone/Video with Pt.: 15 Assessment and Plan Assessment & Plan (1) Asthma: Code(s): J45.909 - Unspecified asthma, uncomplicated Plan: Ventolin inhaler and Pulmicort controller inhaler sent in (2) Asthma exacerbation: Code(s): J45.901 - Unspecified asthma with (acute) exacerbation Plan: Antibiotic prescription sent in Medications: New albuterol sulfate 90 mcg/actuation (Ventolin HFA) 2 puffs inhalation Q6H PRN 8.5 grams 0RF shortness of breath or wheezing J45.909 - Unspecified asthma, uncomplicated azithromycin (Zithromax) For 250 mg dose pack: take 500 mg today (day 1), then 250 mg for 4 days (days 2-5) PO 6 tabs 0RF J45.901 - Unspecified asthma with (acute) exacerbation budesonide 180 mcg/actuation (Pulmicort Flexhaler) 1 inh inhalation BID 1 ea 12RF J45.909 - Unspecified asthma, uncomplicated Coding Level of Care Code Tele Est Pt Level 3 (91881) Diagnoses Asthma J45.909 Asthma exacerbation J45.901
== END 2023-08-05 13:37 | disposition home or self-care (01) ==
LOC: HO.HMGH 11:56
PROVIDERS: PCP Internal Medicine; Visit Provider Internal Medicine
DX: J45.901 Unspecified asthma with (acute) exacerbation (principal)
CPT/HCPCS: 99213

== ENCOUNTER 2023-09-12 15:00 | Outpatient (AMB) | payer OTHER, SELFPAY ==
[2023-09-12 15:02] VITALS: BP 146/88; PULSE 56; O2SAT 98; BMI 28.9
--- NOTE | 2023-09-12 15:02 | A.OFFPC_ITS ---
Vital Signs 09/12/23 15:02 09/12/23 15:21 Height 5 ft 3 in Weight 163 lb BMI 28.9 BP 146/88 H 110/70 Blood Pressure Location Lt brachial Lt brachial Position Sitting Sitting Pulse 56 Pulse Source Pulse Oximeter Pulse Oximetry (%) 98 Oxygen Delivery Method Room Air Intake Visit Reasons: Annual Exam Technicians And Trades Workers Required: No Asset Protection Officer: Not Required per policy Accompanied by: Self / Same As Patient Allergies house dust mite Allergy (Intermediate, Verified 09/12/23 15:03) Rash latex Allergy (Intermediate, Verified 09/12/23 15:03) Rash seafood Allergy (Intermediate, Verified 09/12/23 15:03) Swelling, Hives shellfish derived [SHELLFISH DERIVED] Allergy (Intermediate, Verified 09/12/23 15:03) HIVES,SWELLING pollen extracts Adverse Reaction (Intermediate, Verified 09/12/23 15:03) Sneezing Medication List - Last Reconciled 09/12/23 by Flores Cesar MD albuterol sulfate 90 mcg/actuation (Ventolin HFA) 2 puffs inhalation Q6H PRN calcium citrate 1,000 mg PO DAILY cetirizine (Zyrtec) 10 mg PO DAILY PRN epinephrine 1 IM DIRECTED levonorgestrel (Mirena) intrauterine sfrzpircspqd-ixw-qswq-FA-vit K 45 mg iron- 800 mcg-120 mcg (Bariatric Multivitamins) 1 cap PO DAILY sennosides (senna) 17.2 mg (2 x 8.6 mg) PO BEDTIME PRN 90 days Tobacco use date assessed: 08/05/23 Dental Screening Dental Screen Date: 09/12/23 Did you have a dental visit in the last 12 months?: Yes Did you have a dental problem in the last 6 months where you did not have access to dental care?: No Was dental information given to patient?: Patient has dentist HPI Annual Exam HPI Details 43-year-old overweight female with a his tory of laparoscopic sleeve gastrectomy ascus GERD asthma coming in for physical exam last seen in August 2023. Patient's mammogram is up-to-date and Pap smear is up-to-date. Due for Pap this time. occ dizzy. epigasgtric pain 4 days soft stools though [facility] Medical History (Updated 09/12/23 @ 15:35 by Flores Cesar MD) Pre-op evaluation Abnormal uterine bleeding (AUB) Right ACL tear Abnormal uterine bleeding Patellar instability of right knee Knee effusion, right Menorrhagia Hip pain, right Knee pain, right Cellulitis Shortness of breath Preoperative examination Asthma Adjustment disorder, unspecified Bilateral nephrolithiasis Vitamin B 12 deficiency Right renal stone Dark yellow-colored urine H. pylori duodenitis Polyarthralgia Constipation Gestational diabetes Talar fracture Iron deficiency anemia Vitamin D deficiency Ulnar neuropathy Carpal tunnel syndrome, right Anxiety and depression Patellar instability of both knees Migraines GERD (gastroesophageal reflux disease) Obesity (BMI 30-39.9) Surgical History Hx of plastic surgery Hx of knee surgery History of esophagogastroduodenoscopy (EGD) History of removal of laparoscopic gastric banding device S/P laparoscopic sleeve gastrectomy Gastric banding status Hx laparoscopic cholecystectomy Hx of laparoscopic gastric banding H/O: Family History Father Diabetes HTN (hypertension) AA (alcohol abuse) Stomach ulcer Cirrhosis Substance abuse Mother No problems noted. Sister Diabetes Substance abuse Bipolar 1 disorder Brother Diabetes Glaucoma Substance abuse Bipolar 1 disorder Daughter Asthma Chronic eczema Maternal Grandmother Myocardial infarct Bipolar 1 disorder Paternal Grandfather Myocardial infarct Paternal Uncle Substance abuse Liver cancer Throat cancer Other FHx: mental illness Social History (Updated 09/12/23 @ 15:25 by Flores Cesar MD) Household Members: Children Housing: House Are you a primary home care coordinator to a significant other at home: No Do you presently have visiting nurse or other home services: No Alcohol intake: current Alcohol intake frequency: holidays/special occasions only Comment: once a month Patient Tobacco Use Status: Never used Tobacco e-Cigarette/Vaping Use: Never Used Second Hand Smoke Exposure: No service: No Current occupational status: employed 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 Stephen Devlin, Gabriela Jenkins, Reddy Garcia and colleagues, with an educational beto from [employer]. Review of Systems Const Denies poor appetite and Denies weakness Eyes Denies no additional complaints ENT Reports Normal hearing present, Denies dizziness, Denies nasal congestion, Denies tinnitus and Denies sore throat Card Denies chest pain, Denies syncope, Denies rapid heart rate and Denies dyspnea Resp Denies cough and Denies dyspnea GI Denies change in stool character, Reports constipation, Denies diarrhea, Denies nausea and Denies vomiting Denies urinary frequency, Denies difficulty voiding and Denies dysuria Neuro Reports Normal hearing present, Denies confusion, Denies dizziness, Denies syncope and Denies weakness Psych Denies confusion Physical exam (Primary Care) Vital Signs: Last Vital Signs Pulse 56 09/12/23 15:02 BP 146/88 H 09/12/23 15:02 Pulse Ox 98 09/12/23 15:02 Oxygen Delivery Method Room Air 09/12/23 15:02 BMI result Body Mass Index 28.9 Tobacco/Smoking Status: Tobacco use Status Tobacco use date assessed 08/05/23 09/12/23 15:03 Patient Tobacco Use Status Never used Tobacco 09/12/23 15:03 e-Cigarette/Vaping Use Never Used 09/12/23 15:03 Thrive Assessment: Date of Thrive Assessment Date Thrive assessed 08/05/23 09/12/23 15:03 Const General: alert and awake; No confusion Orientation/consciousness: No confusion HENMT Head: Yes normocephalic Ears: external ears normal and TM's normal bilaterally Face and sinus: Yes normal facial exam Mouth: moist mucous membranes Throat: Yes tonsils normal Eyes Conjunctivae: conjunctivae normal Pupils: Equal, round and reactive pupils present and Pupil accommodation reflex normal Direct Ophthalmoscopy: normal light reflex Neck Neck: No lymphadenopathy Thyroid: Thyroid normal Chest Chest palpation & inspection: normal inspection of the chest Resp Effort & Inspection: normal respiratory effort and no audible wheezes Auscultation: clear to auscultation bilaterally, no crackles, no wheezes and lung sounds not diminished Cardio Rate: regular rate Rhythm: regular rhythm Peripheral pulses: radial pulses present and dorsalis pedis present GI Palpation (GI): no masses Auscultation: normal bowel sounds and normoactive bowel sounds Rectal Exam - Female: deferred Skin General skin exam: no rashes or lesions noted Rashes: no rashes Neuro General: deep tendon reflexes 2+ bilaterally and No confusion Cranial nerves: Yes Equal, round and reactive pupils present, Yes Midline tongue present, Yes Normal hearing present and Yes Ability to bilaterally elevate shoulders present Cognition (Neuro): normal cognition Gait exam (Neuro): Normal gait present Motor exam (neuro): 5/5 motor strength present throughout Deep tendon reflexes (DTR's): Right brachioradialis reflex intensity grade: 2+, Left brachioradialis reflex intensity grade: 2+, Right patellar reflex intensity grade: 2+ and Left patellar reflex intensity grade: 2+ Extrem General: No edema Assessment and Plan Assessment & Plan (1) Annual physical exam: Code(s): Z00.00 - Encounter for general adult medical examination without abnormal findings (2) S/P laparoscopic sleeve gastrectomy: Comment: 2020 laparoscopic sleeve gastrectomy 12/28/[address] Alonso. Had panniculectomy, liposuction and BBL in [facility] in 04/25/2022 Code(s): Z98.84 - Bariatric surgery status Plan: Continue with diet and exercise (3) ASCUS with positive high risk HPV cervical: Code(s): R87.610 - Atypical squamous cells of undetermined significance on cytologic smear of cervix (ASC-US); R87.810 - Cervical high risk human papillomavirus (HPV) DNA test positive Plan: Continue to follow-up with gynecology (4) GERD (gastroesophageal reflux disease): Code(s): K21.9 - Gastro-esophageal reflux disease without esophagitis Plan: Avoid the foods that causes that usually spicy foods, tomato products, juices, coffee, soda and foods that your sensitive to. After eating do not lie down, allow 3-4 hours before in lie down. And keep the head of bed above 30 degrees to avoid the acid from going up. (5) Asthma: Code(s): J45.909 - Unspecified asthma, uncomplicated Plan: Continue with the inhaler (6) Vitamin B12 deficiency: Code(s): E53.8 - Deficiency of other specified B group vitamins Plan: Discussed about vitamin B12 1000 mcg once a day will have to retest (7) Bloated abdomen: Code(s): R14.0 - Abdominal distension (gaseous) Plan: discussed about diet and avoiding certain foods Orders: Orders Complete Blood Count Auto Diff 2 Months E53.8 - Deficiency of other specified B group vitamins Comprehensive Met. Panel 2 Months E53.8 - Deficiency of other specified B group vitamins Thyroid Stimulating Hormone 2 Months E53.8 - Deficiency of other specified B group vitamins Vitamin B12 and Folate 2 Months E53.8 - Deficiency of other specified B group vitamins Vitamin D 25-OH Total 2 Months E53.8 - Deficiency of other specified B group vitamins Lipid Panel 2 Months E53.8 - Deficiency of other specified B group vitamins, E78.00 - Pure hypercholesterolemia, unspecified Magnesium 2 Months E53.8 - Deficiency of other specified B group vitamins Free T4 (Free Thyroxine) 2 Months E53.8 - Deficiency of other specified B group vitamins Vitamin A 2 Months E53.8 - Deficiency of other specified B group vitamins Coding Level of Care Code Est Pt Prev Care 40-64y(18494) Diagnoses Annual physical exam Z00.00 S/P laparoscopic sleeve gastrectomy Z98.84 ASCUS with positive high risk HPV cervical R87.610; R87.810 GERD (gastroesophageal reflux disease) K21.9 Asthma J45.909 Vitamin B12 deficiency E53.8 Bloated abdomen R14.0
[2023-09-12 15:21] VITALS: BP 110/70
== END 2023-09-12 15:40 | disposition home or self-care (01) ==
PROVIDERS: Visit Provider Internal Medicine
DX: Z00.00 Encounter for general adult medical examination without abnormal findings (principal); Z98.84 Bariatric surgery status; R87.610 Atypical squamous cells of undetermined significance on cytologic smear of cervix (ASC-US); R87.810 Cervical high risk human papillomavirus (HPV) DNA test positive; K21.9 Gastro-esophageal reflux disease without esophagitis; J45.909 Unspecified asthma, uncomplicated; E53.8 Deficiency of other specified B group vitamins; R14.0 Abdominal distension (gaseous)
CPT/HCPCS: 99396

== ENCOUNTER 2023-09-26 14:59 | Outpatient (REF) | payer OTHER, SELFPAY ==
[2023-10-04 22:14] LABS: HPV mRNA E6/E7 rflx Not Detected (Not Detected)
== END 2023-09-26 15:00 | disposition home or self-care (01) ==
LOC: HO.LNP 14:59
PROVIDERS: PCP Internal Medicine; Visit Provider Obstetrics & Gynecology
DX: Z01.419 Encounter for gynecological examination (general) (routine) without abnormal findings (principal); Z11.51 Encounter for screening for human papillomavirus (HPV)
CPT/HCPCS: 87624; 88142

== ENCOUNTER 2023-09-26 14:59 | Outpatient (AMB) | payer OTHER, SELFPAY ==
--- NOTE | 2023-09-26 15:08 | A.OFFVIS_ITS ---
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 RS Intake Note: no concerns Hair Dresser Required: No Information Interpreted: non-clinical & clinical Break And Load Operator: Break And Load Operator Present (Deya GONZALES ) Accompanied by: Self / Same As Patient Allergies house dust mite Allergy (Intermediate, Verified 09/26/23 15:16) Rash latex Allergy (Intermediate, Verified 09/26/23 15:16) Rash seafood Allergy (Intermediate, Verified 09/26/23 15:16) Swelling, Hives shellfish derived [SHELLFISH DERIVED] Allergy (Intermediate, Verified 09/26/23 15:16) HIVES,SWELLING pollen extracts Adverse Reaction (Intermediate, Verified 09/26/23 15:16) Sneezing Is last menstrual period known: Yes Last menstrual period: 09/11/23 HPI HPI Comments History of Present Illness Details Presenting for annual exam. No complaints. Last Pap/HPV in 09/20 was negative/HPV E6/E7 positive, colpo/biopsy/ECC were negative Last Mammogram in 10/21 was BI-RADS 1 [facility] Medical History ASCUS with positive high risk HPV cervical Pre-op evaluation Abnormal uterine bleeding (AUB) Right ACL tear Abnormal uterine bleeding Patellar instability of right knee Knee effusion, right Menorrhagia Hip pain, right Knee pain, right Cellulitis Shortness of breath Preoperative examination Asthma Adjustment disorder, unspecified Bilateral nephrolithiasis Vitamin B 12 deficiency Right renal stone Dark yellow-colored urine H. pylori duodenitis Polyarthralgia Constipation Gestational diabetes Talar fracture Iron deficiency anemia Vitamin D deficiency Ulnar neuropathy Carpal tunnel syndrome, right Anxiety and depression Patellar instability of both knees Migraines GERD (gastroesophageal reflux disease) Obesity (BMI 30-39.9) Surgical History Hx of plastic surgery Hx of knee surgery History of esophagogastroduodenoscopy (EGD) History of removal of laparoscopic gastric banding device S/P laparoscopic sleeve gastrectomy Gastric banding status Hx laparoscopic cholecystectomy Hx of laparoscopic gastric banding H/O: Family History Father Diabetes HTN (hypertension) AA (alcohol abuse) Stomach ulcer Cirrhosis Substance abuse Mother No problems noted. Sister Diabetes Substance abuse Bipolar 1 disorder Brother Diabetes Glaucoma Substance abuse Bipolar 1 disorder Daughter Asthma Chronic eczema Maternal Grandmother Myocardial infarct Bipolar 1 disorder Paternal Grandfather Myocardial infarct Paternal Uncle Substance abuse Liver cancer Throat cancer Other FHx: mental illness Social History Household Members: Children Housing: House Are you a primary career development facilitator to a significant other at home: No Do you presently have visiting nurse or other home services: No Alcohol intake: current Alcohol intake frequency: holidays/special occasions only Comment: once a month Patient Tobacco Use Status: Never used Tobacco e-Cigarette/Vaping Use: Never Used Second Hand Smoke Exposure: No service: No Current occupational status: employed 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 Sexual orientation: Straight/Heterosexual Gender identity: Female Cognitive needs: No Hearing needs: No Vision needs: Yes (glasses) Female Reproductive History Menstrual Age of Menarche: 13 Date of last menstrual period: 09/11/23 control method: progestin IUCD Total pregnancies: 4 Full term: 3 Number of Living Children: 3 Ab spontaneous: 1 Date of last pap smear: 09/19/22 Date of Mammogram: 10/23/22 Review of Systems Const All systems reviewed & are unremarkable except as noted in HPI and below Card Reports as per HPI Resp Reports as per HPI GI Reports as per HPI and Reports no additional complaints Reports as per HPI Physical Exam Vital Signs: BMI result Body Mass Index 28.5 Const General: cooperative, healthy appearing and comfortable Chest Chest palpation & inspection: normal inspection of the chest and normal palpation of entire chest wall Breast/axilla inspection: normal inspection of the breasts and normal inspection of the axillae Breast/axilla palpation: normal palpation of the breasts, normal palpation of the axillae and no axillary lymphadenopathy Resp Effort & Inspection: normal respiratory effort Auscultation: clear to auscultation bilaterally Percussion: percussion normal Cardio Palpation: normal PMI Rate: regular rate Rhythm: regular rhythm Heart sounds: no murmurs and no rubs Peripheral pulses: Peripheral pulses 2+ throughout GI Inspection: Yes normal to inspection Palpation (GI): Soft to palpation, nontender, no guarding, not rigid and No hepatosplenomegaly present Percussion: Yes normal to percussion Auscultation: normal bowel sounds Rectal Exam - Female: deferred General: Yes bladder normal to palpation External Female Exam: No lesion Speculum Exam - Vagina: normal appearance of the vagina, normal palpation, normal vaginal discharge and not erythematous Speculum Exam - Cervix: normal appearance of the cervix and normal palpation Bimanual exam- vagina & uterus: normal bimanual exam, normal palpation, uterine size normal, bladder normal to palpation, consistency normal and normal palpation Bimanual Exam- Adnexa, other: normal adnexae, no masses and no tenderness Assessment & Plan Assessment & Plan (1) Well woman exam: Comment: History of ascus/HPV 16 positive in 09/19 Code(s): Z01.419 - Encounter for gynecological examination (general) (routine) without abnormal findings Plan: Cotesting done. Mammogram ordered. Counseled the patient about the recommended dietary allowance of 1000 mg of Calcium & 600 IU of vitamin D. The patient was instructed to perform monthly self-breast exams and to schedule an annual exam in a year; All questions answered and the patient verbalized understanding. Instructed the patient to schedule annual exam in a year (2) Uterine myoma: Code(s): D25.9 - Leiomyoma of uterus, unspecified Plan: Repeat pelvic ultrasound to compare the size of the myoma identified on ultrasound done in 09/19. Instructions given to patient to schedule ultrasound follow-up appointment within 2 weeks. All questions answered, the patient verbalized understanding Orders: Orders US pelvic and transvaginal Today D25.9 - Leiomyoma of uterus, unspecified MM screening mammo BI Today Z12.31 - Encounter for screening mammogram for malignant neoplasm of breast Pap Smear Today Z01.419 - Encounter for gynecological examination (general) (routine) without abnormal findings Coding Level of Care Code Est Pt Prev Care 40-64y(83014) Diagnoses Well woman exam Z01.419 Uterine myoma D25.9
[2023-09-26 15:13] VITALS: BP 102/70; BMI 28.5
== END 2023-09-26 15:32 | disposition home or self-care (01) ==
LOC: HO.HWS 14:59
PROVIDERS: PCP Internal Medicine; Visit Provider Obstetrics & Gynecology
DX: Z01.419 Encounter for gynecological examination (general) (routine) without abnormal findings (principal); D25.9 Leiomyoma of uterus, unspecified
CPT/HCPCS: 99396

== ENCOUNTER 2023-10-01 14:25 | Outpatient (REF) | payer OTHER, SELFPAY ==
--- NOTE | ~2023-10-01 | US_ITS ---
EXAMINATION: US PELVIS COMPLETE CLINICAL INFORMATION: Leiomyoma; the last menstrual period was 2 weeks prior. COMPARISON: Pelvic ultrasound dated 09/27/2021. TECHNIQUE: Transabdominal and transvaginal imaging were performed. FINDINGS: The uterus is of normal size and echogenicity, measuring 10.7 x 6.4 x 6.2 cm. The uterus is anteverted and anteflexed. A regular, homogeneous endometrium is identified measuring 1.0 cm. An intrauterine device is seen, properly situated within the canal. Nabothian cysts are seen within the cervix. FIBROIDS: There is 1 fibroid seen. 1. Location: Upper rightward body, subendometrial. Size: 3.3 x 2.9 x 2.4 cm. Fibroid characteristics: Heterogeneous echotexture. Both ovaries are of normal echogenicity and show normal Doppler flow. The right ovary measures 5.1 x 3.9 x 3.8 cm, for a volume of 39.6 mL. The right ovary contains a 4.8 x 3.7 x 3.3 cm mildly complex cyst, with single fine septation. The left ovary measures 2.6 x 1.5 x 1.9 cm for a volume of 3.9 mL. There is no pelvic free fluid. US/US pelvic and transvaginal IMPRESSION: 1. An intrauterine device is seen, properly situated within the endometrial canal. 2. Nabothian cysts are seen within the cervix. 3. A small uterine fibroid is seen, as detailed. 4. A 4.8 cm mildly complex right ovarian cyst is seen, with single fine septation. This is almost certainly benign, and no follow-up imaging is recommended.
== END 2023-10-01 14:26 | disposition home or self-care (01) ==
LOC: HO.US 14:25
PROVIDERS: PCP Internal Medicine; Visit Provider Obstetrics & Gynecology
DX: D25.9 Leiomyoma of uterus, unspecified (principal)
CPT/HCPCS: 76830; 76856

== ENCOUNTER → 2023-10-28 15:00 | Outpatient (BNV) | payer OTHER, SELFPAY | PROVIDERS: PCP Internal Medicine; Visit Provider Radiology Diagnostic Radiology | DX: Z12.31 Encounter for screening mammogram for malignant neoplasm of breast (principal) | CPT/HCPCS: 77063; 77067 ==

== ENCOUNTER 2023-10-28 15:04 | Outpatient (REF) | payer OTHER, SELFPAY ==
--- NOTE | ~2023-10-28 | MM_ITS ---
EXAMINATION: MM SCREENING DIGITAL BREAST TOMOSYNTHESIS, BILATERAL CLINICAL INFORMATION: Screening. Asymptomatic. COMPARISON: Mammography: This study is compared with prior exams dating back to 2022. TECHNIQUE: Digital breast tomosynthesis is performed in both the craniocaudal and mediolateral oblique views along with computer-aided detection (CAD). Synthesized 2D images are generated from the tomosynthesis. FINDINGS: There are scattered areas of fibroglandular density (ACR BI-RADS breast composition Category b). There are no significant masses, abnormal calcifications, or other abnormalities. MM/MM tomosynthesis screening BI IMPRESSION: No mammographic evidence of malignancy. ASSESSMENT: BI-RADS BI-RADS 1 - Negative RECOMMENDATION: Routine annual mammography screening. 1 year F/U This examination should not preclude the clinical evaluation of a suspicious palpable abnormality. This patient's information was entered into a reminder system with a target due date for their next mammogram.
== END 2023-10-28 15:05 | disposition home or self-care (01) ==
LOC: HO.MAMMO 15:04
PROVIDERS: PCP Internal Medicine; Visit Provider Internal Medicine
DX: Z12.31 Encounter for screening mammogram for malignant neoplasm of breast (principal)
CPT/HCPCS: 77063; 77067

== ENCOUNTER 2023-10-31 14:06 | Outpatient (AMB) | payer OTHER, SELFPAY ==
[2023-10-31 14:12] VITALS: BP 110/72; BMI 28.3
--- NOTE | 2023-10-31 14:12 | MHC.OFFVIS ---
Vital Signs 10/31/23 14:12 Height 5 ft 3 in Weight 160 lb BMI 28.3 BP 110/72 Intake Visit Reasons: Ultrasound follow up Vp Account Director Required: No Allergies house dust mite Allergy (Intermediate, Verified 10/31/23 14:13) Rash latex Allergy (Intermediate, Verified 10/31/23 14:13) Rash seafood Allergy (Intermediate, Verified 10/31/23 14:13) Swelling, Hives shellfish derived [SHELLFISH DERIVED] Allergy (Intermediate, Verified 10/31/23 14:13) HIVES,SWELLING pollen extracts Adverse Reaction (Intermediate, Verified 10/31/23 14:13) Sneezing Post menopausal: No Patient : No HPI Comments Details: Presenting for ultrasound follow-up. Pelvic ultrasound showed the following: The uterus is of normal size and echogenicity, measuring 10.7 x 6.4 x 6.2 cm. The uterus is anteverted and anteflexed. A regular, homogeneous endometrium is identified measuring 1.0 cm. An intrauterine device is seen, properly situated within the canal. Nabothian cysts are seen within the cervix. FIBROIDS: There is 1 fibroid seen. 1. Location: Upper rightward body, subendometrial. Size: 3.3 x 2.9 x 2.4 cm. Fibroid characteristics: Heterogeneous echotexture. Both ovaries are of normal echogenicity and show normal Doppler flow. The right ovary measures 5.1 x 3.9 x 3.8 cm, for a volume of 39.6 mL. The right ovary contains a 4.8 x 3.7 x 3.3 cm mildly complex cyst, with single fine septation. The left ovary measures 2.6 x 1.5 x 1.9 cm for a volume of 3.9 mL. There is no pelvic free fluid. US/US pelvic and transvaginal IMPRESSION: 1. An intrauterine device is seen, properly situated within the endometrial canal. 2. Nabothian cysts are seen within the cervix. 3. A small uterine fibroid is seen, as detailed. 4. A 4.8 cm mildly complex right ovarian cyst is seen, with single fine septation. This is almost certainly benign, and no follow-up imaging is recommended. Mammogram done on 10/27 but report is still pending [facility] Medical History ASCUS with positive high risk HPV cervical Pre-op evaluation Abnormal uterine bleeding (AUB) Right ACL tear Abnormal uterine bleeding Patellar instability of right knee Knee effusion, right Menorrhagia Hip pain, right Knee pain, right Cellulitis Shortness of breath Preoperative examination Asthma Adjustment disorder, unspecified Bilateral nephrolithiasis Vitamin B 12 deficiency Right renal stone Dark yellow-colored urine H. pylori duodenitis Polyarthralgia Constipation Gestational diabetes Talar fracture Iron deficiency anemia Vitamin D deficiency Ulnar neuropathy Carpal tunnel syndrome, right Anxiety and depression Patellar instability of both knees Migraines GERD (gastroesophageal reflux disease) Obesity (BMI 30-39.9) Surgical History Hx of plastic surgery Hx of knee surgery History of esophagogastroduodenoscopy (EGD) History of removal of laparoscopic gastric banding device S/P laparoscopic sleeve gastrectomy Gastric banding status Hx laparoscopic cholecystectomy Hx of laparoscopic gastric banding H/O: Family History Father Diabetes HTN (hypertension) AA (alcohol abuse) Stomach ulcer Cirrhosis Substance abuse Mother No problems noted. Sister Diabetes Substance abuse Bipolar 1 disorder Brother Diabetes Glaucoma Substance abuse Bipolar 1 disorder Daughter Asthma Chronic eczema Maternal Grandmother Myocardial infarct Bipolar 1 disorder Paternal Grandfather Myocardial infarct Paternal Uncle Substance abuse Liver cancer Throat cancer Other FHx: mental illness Social History Household Members: Children Housing: House Are you a primary healthcare technician to a significant other at home: No Do you presently have visiting nurse or other home services: No Alcohol intake: current Alcohol intake frequency: holidays/special occasions only Comment: once a month Patient Tobacco Use Status: Never used Tobacco e-Cigarette/Vaping Use: Never Used Second Hand Smoke Exposure: No service: No Current occupational status: employed 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 Sexual orientation: Straight/Heterosexual Gender identity: Female Cognitive needs: No Hearing needs: No Vision needs: Yes (glasses) Female Reproductive History Menstrual Age of Menarche: 13 control method: progestin IUCD Date of last pap smear: 10/01/23 (negative) Review of Systems Const All systems reviewed & are unremarkable except as noted in HPI and below Reports as per HPI and Reports no additional complaints GI Reports no additional complaints Reports no additional complaints Physical Exam Vital Signs: Last Vital Signs BP 110/72 10/31/23 14:12 BMI result Body Mass Index 28.3 Assessment & Plan Assessment & Plan (1) Uterine myoma: Code(s): D25.9 - Leiomyoma of uterus, unspecified Category: Medical Plan: Discussed with the patient the findings on pelvic ultrasound & the risk of myosarcoma; discussed with the patient the options of treatment including expectant management versus hysterectomy; the pros and cons, risks benefits of each approach were discussed with the patient including the fact that in cases of myosarcoma, surgical treatment can lead to early diagnosis and positively affects the prognosis; after further discussion, the patient decided to proceed with expectant management. Will repeat pelvic ultrasound in 3 month. Instructions given to patient to call in case any of the following occurs: pressure symptoms, abnormal uterine bleeding, pelvic pain; and to schedule a 3 months ultrasound and an office follow-up appointment . All questions answered, the patient verbalized understanding and agreed with the plan . (2) Complex ovarian cyst: Code(s): N83.299 - Other ovarian cyst, unspecified side Category: Medical Plan: Discussed with the patient the complex ovarian cyst by ultrasound. Discussed with the patient the Ultrasound findings, the main limitation of transvaginal ultrasonography alone as a diagnostic tool to distinguish benign from malignant masses relates to its lack of specificity and low positive predictive value for cancer. Will order ovarian cancer tumor markers including CA 125, CA 19-9 and CEA The differential diagnosis discussed with the patient includes the following but not limited to: benign and malignant gynecological and non-gynecological causes. Discussed with the patient the sensitivity, specificity, specificity, positive predictive value and negative predictive value. Discussed with the patient options of treatment , in tumor markers are not elevated, including laparoscopy ovarian cystectomy/oophorectomy vs. expectant management with repeat US in repeating pelvic US in 12 weeks from previous US. If the ovarian complex cyst is persistent larger and / or more complex looking, or higher to markers will refer to gynecologic Oncology. All pros, cons, risks and benefits of each approach were discussed with the patient including but not limited to a delay in the diagnosis and treatment of ovarian cancer affecting the prognosis; The patient decided to go ahead with expectant management. Instructions given the patient to schedule a 3 months follow-up ultrasound appointment. All questions were answered & the patient verbalized understanding and agreed with the plan. Orders: Orders Carcinoembryonic Antigen Today N83.299 - Other ovarian cyst, unspecified side US pelvic and transvaginal 3 Months N83.299 - Other ovarian cyst, unspecified side CA-125 Today N83.299 - Other ovarian cyst, unspecified side Carbohydrate Antigen 19-9 Today N83.299 - Other ovarian cyst, unspecified side Coding Level of Care Code Est Pt Level 3 (14950) Diagnoses Uterine myoma D25.9 Complex ovarian cyst N83.299
== END 2023-10-31 14:26 | disposition home or self-care (01) ==
PROVIDERS: PCP Internal Medicine; Visit Provider Obstetrics & Gynecology
DX: D25.9 Leiomyoma of uterus, unspecified (principal); N83.299 Other ovarian cyst, unspecified side
CPT/HCPCS: 99213

== ENCOUNTER → 2023-10-31 14:06 | Outpatient (BNVA) | payer OTHER, SELFPAY | PROVIDERS: PCP Internal Medicine; Visit Provider Obstetrics & Gynecology ==

== ENCOUNTER 2023-11-01 08:47 | Outpatient (REF) | payer OTHER, SELFPAY ==
[2023-11-01 10:30] LABS: MANUAL DIFF FLAG NO
[2023-11-01 10:38] LABS: Basophils Percent Auto 0.3 % (0-2); Eosinophils Absolute Auto 0.1 X10*3/uL (0.0-0.4); Eosinophils Percent Auto 1.4 % (0-4); Hemoglobin 13.4 g/dl (12.0-16.0); Imm Gran Abs Auto 0.01 X10*3/uL (0.00-0.03); Imm Gran Pct Auto 0.3 % (0.0-0.4); Lymphocytes Absolute Auto 1.7 X10*3/uL (1.2-4.9); Lymphocytes Percent Auto 48.9 % (20-40); Mean Corpuscular HGB Conc 33.5 g/dl (31.0-35.0); Mean Corpuscular Hemoglobin 30.3 pg (27.0-33.0); Mean Corpuscular Volume 90.5 fL (80.0-98.0); Mean Platelet Volume 10.6 fL (9.4-12.3); Monocytes Absolute Auto 0.3 X10*3/uL (0.1-1.2); Monocytes Percent Auto 7.1 % (2-11); Neutrophils Absolute Auto 1.5 x10*3/uL (2.0-8.3); Platelet Count 203 X10*3/uL (160-400); Red Blood Count 4.42 X10*6/uL (4.20-5.50); White Blood Count 3.5 X10*3/uL (4.8-10.8)
[2023-11-01 11:00] LABS: Alanine Aminotransferase 8 U/L (0-31); Albumin Level 4.3 g/dL (3.5-5.0); Alkaline Phosphatase 61 U/L (39-117); Anion Gap 11 (12-20); Aspartate Amino Transferase 12 U/L (5-31); Bilirubin Total 0.6 mg/dL (0.0-1.0); Blood Urea Nitrogen 7 mg/dL (9-16); Calcium 9.6 mg/dL (8.4-10.2); Carbon Dioxide 25 mmol/L (22-29); Chloride 109 mmol/L (96-108); Cholesterol 148 mg/dL (<200); Estimated Glomerular Filt Rate > 60; Glucose Random 86 mg/dL (60-115); HDL Cholesterol 59 mg/dL (>40); LDL Cholesterol Calculated 79 mg/dL (<100); Magnesium 2.1 mg/dL (1.6-2.6); Potassium 4.3 mmol/L (3.3-5.1); Sodium 141 mmol/L (135-145); Total Protein 7.2 g/dL (6.5-8.0); Triglycerides 53 mg/dL (<150)
[2023-11-01 11:18] LABS: Free T4 (Free Thyroxine) 0.86 ng/dL (0.71-1.85); Thyroid Stimulating Hormone 1.78 uIU/mL (0.32-4.0)
[2023-11-01 11:55] LABS: Folate 12.4 ng/mL (> or = 4.0); Vitamin B12 236 pg/mL (200-900)
[2023-11-02 11:08] LABS: CA-125 11 U/mL (<35); Carbohydrate Antigen 19-9 10 U/mL (<34)
[2023-11-05 17:28] LABS: Vitamin A 35 mcg/dL (38-98)
== END 2023-11-01 08:48 | disposition home or self-care (01) ==
LOC: HO.HMGCLDS 08:47
PROVIDERS: PCP Internal Medicine; Referring Provider Obstetrics & Gynecology; Visit Provider Internal Medicine
DX: E53.8 Deficiency of other specified B group vitamins (principal); E78.00 Pure hypercholesterolemia, unspecified; N83.299 Other ovarian cyst, unspecified side
CPT/HCPCS: 36415; 80053; 80061; 82306; 82378; 82607; 82746; 83735; 84439; 84443; 84590; 85025; 86301; 86304

== ENCOUNTER 2024-01-03 14:33 | Outpatient (AMB) | payer OTHER, SELFPAY ==
[2024-01-03 14:41] VITALS: BP 92/60; PULSE 62; O2SAT 98; BMI 28.2
--- NOTE | 2024-01-03 14:41 | A.OFFPC_ITS ---
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 Required: No Accompanied by: Self / Same As Patient Allergies house dust mite Allergy (Intermediate, Verified 01/03/24 14:42) Rash latex Allergy (Intermediate, Verified 01/03/24 14:42) Rash seafood Allergy (Intermediate, Verified 01/03/24 14:42) Swelling, Hives shellfish derived [SHELLFISH DERIVED] Allergy (Intermediate, Verified 01/03/24 14:42) HIVES,SWELLING pollen extracts Adverse Reaction (Intermediate, Verified 01/03/24 14:42) Sneezing Medication List - Last Reconciled 01/03/24 by Flores Cesar MD albuterol sulfate 90 mcg/actuation (Ventolin HFA) 2 puffs inhalation Q6H PRN calcium citrate 1,000 mg PO DAILY cetirizine (Zyrtec) 10 mg PO DAILY PRN epinephrine 1 IM DIRECTED levonorgestrel (Mirena) intrauterine hiulqhfkcvvt-wgn-ljos-FA-vit K 45 mg iron- 800 mcg-120 mcg (Bariatric Multivitamins) 1 cap PO DAILY sennosides (senna) 17.2 mg (2 x 8.6 mg) PO BEDTIME PRN 90 days Tobacco use date assessed: 08/05/23 Dental Screening Dental Screen Date: 09/12/23 HPI abd pain HPI Details 43-year-old overweight female with a his tory of laparoscopic gastrectomy, ascus GERD asthma vitamin B12 deficiency coming in for follow-up last seen in 08/2023. Patient's last Pap smear was done in September 2023. Up-to-date and review of the notes had an appointment with Gynecology leiomyoma patient opted for expectant management..- 01/2024 retesting . asthma PFSH Medical History ASCUS with positive high risk HPV cervical Pre-op evaluation Abnormal uterine bleeding (AUB) Right ACL tear Abnormal uterine bleeding Patellar instability of right knee Knee effusion, right Menorrhagia Hip pain, right Knee pain, right Cellulitis Shortness of breath Preoperative examination Asthma Adjustment disorder, unspecified Bilateral nephrolithiasis Vitamin B 12 deficiency Right renal stone Dark yellow-colored urine H. pylori duodenitis Polyarthralgia Constipation Gestational diabetes Talar fracture Iron deficiency anemia Vitamin D deficiency Ulnar neuropathy Carpal tunnel syndrome, right Anxiety and depression Patellar instability of both knees Migraines GERD (gastroesophageal reflux disease) Obesity (BMI 30-39.9) Surgical History Hx of plastic surgery Hx of knee surgery History of esophagogastroduodenoscopy (EGD) History of removal of laparoscopic gastric banding device S/P laparoscopic sleeve gastrectomy Gastric banding status Hx laparoscopic cholecystectomy Hx of laparoscopic gastric banding H/O: Family History Father Diabetes HTN (hypertension) AA (alcohol abuse) Stomach ulcer Cirrhosis Substance abuse Mother No problems noted. Sister Diabetes Substance abuse Bipolar 1 disorder Brother Diabetes Glaucoma Substance abuse Bipolar 1 disorder Daughter Asthma Chronic eczema Maternal Grandmother Myocardial infarct Bipolar 1 disorder Paternal Grandfather Myocardial infarct Paternal Uncle Substance abuse Liver cancer Throat cancer Other FHx: mental illness Social History Household Members: Children Housing: House Are you a primary behavioral health care manager to a significant other at home: No Do you presently have visiting nurse or other home services: No Alcohol intake: current Alcohol intake frequency: holidays/special occasions only Comment: once a month Patient Tobacco Use Status: Never used Tobacco e-Cigarette/Vaping Use: Never Used Second Hand Smoke Exposure: No service: No Current occupational status: employed 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 Stephen Devlin, Gabriela Jenkins, Reddy Garcia and colleagues, with an educational beto from [employer]. Physical exam (Primary Care) Vital Signs: Last Vital Signs Pulse 62 01/03/24 14:41 BP 92/60 01/03/24 14:41 Pulse Ox 98 01/03/24 14:41 Oxygen Delivery Method Room Air 01/03/24 14:41 BMI result Body Mass Index 28.2 Tobacco/Smoking Status: Tobacco use Status Tobacco use date assessed 08/05/23 01/03/24 14:42 Patient Tobacco Use Status Never used Tobacco 01/03/24 14:42 e-Cigarette/Vaping Use Never Used 01/03/24 14:42 Thrive Assessment: Date of Thrive Assessment Date Thrive assessed 08/05/23 01/03/24 14:42 Const General: alert; No acute distress Eyes Conjunctivae: conjunctivae normal Resp Auscultation: clear to auscultation bilaterally Cardio Rate: regular rate Rhythm: regular rhythm GI Inspection: Yes normal to inspection Extrem General: Yes normal to inspection and No edema Assessment and Plan Assessment & Plan (1) Uterine myoma: Code(s): D25.9 - Leiomyoma of uterus, unspecified Plan: Patient has been followed up by gynecology and expectant management for now. (2) Asthma: Code(s): J45.909 - Unspecified asthma, uncomplicated Plan: Patient on albuterol inhaler as needed stable (3) GERD (gastroesophageal reflux disease): Code(s): K21.9 - Gastro-esophageal reflux disease without esophagitis Plan: Avoid the foods that causes that usually spicy foods, tomato products, juices, coffee, soda and foods that your sensitive to. After eating do not lie down, allow 3-4 hours before in lie down. And keep the head of bed above 30 degrees to avoid the acid from going up. (4) Vitamin B12 deficiency: Code(s): E53.8 - Deficiency of other specified B group vitamins Plan: Discussed about vitamin B12 deficiency (5) S/P laparoscopic sleeve gastrectomy: Comment: 2020 laparoscopic sleeve gastrectomy 12/28/[address] Alonso. Had panniculectomy, liposuction and BBL in [facility] [place] in 04/25/2022 Code(s): Z98.84 - Bariatric surgery status Plan: Patient taking multivitamins bariatric (6) Overweight: Code(s): E66.3 - Overweight Plan: Continue with diet and exercise Coding Level of Care Code Est Pt Level 4 (39367) Diagnoses Uterine myoma D25.9 Asthma J45.909 GERD (gastroesophageal reflux disease) K21.9 Vitamin B12 deficiency E53.8 S/P laparoscopic sleeve gastrectomy Z98.84 Overweight E66.3
== END 2024-01-03 15:44 | disposition home or self-care (01) ==
PROVIDERS: PCP Internal Medicine; Visit Provider Internal Medicine
DX: D25.9 Leiomyoma of uterus, unspecified (principal); J45.909 Unspecified asthma, uncomplicated; K21.9 Gastro-esophageal reflux disease without esophagitis; E53.8 Deficiency of other specified B group vitamins; Z98.84 Bariatric surgery status; E66.3 Overweight
CPT/HCPCS: 99214

== ENCOUNTER 2024-01-08 13:03 | Outpatient (AMB) | payer OTHER, SELFPAY ==
--- NOTE | 2024-01-08 13:04 | A.OFFVIS_ITS ---
VS Expanded 01/08/24 13:11 BP 114/70 Blood Pressure Location Rt brachial Blood Pressure Position Sitting Pulse 74 Pulse Source Pulse Oximeter Temp 96.6 F L Temperature Source Temporal Artery Scan Pulse Oximetry 74 L Oxygen Delivery Method Room Air Height 5 ft 3 in Weight 157 lb 9.6 oz BMI 27.9 Body Fat % 30.3 Body Fat Mass 47.6 Fat Free Mass 109.8 Visceral Fat Rating 5.0 Body Water % 49.9 Body Water Mass 78.4 Muscle Mass/Score 104.2 Basal Metabolic Rate/Score 1,482 Intake Visit Reasons: (OV) LSG 12/28/20 Allergies house dust mite Allergy (Intermediate, Verified 01/08/24 13:13) Rash latex Allergy (Intermediate, Verified 01/08/24 13:13) Rash seafood Allergy (Intermediate, Verified 01/08/24 13:13) Swelling, Hives shellfish derived [SHELLFISH DERIVED] Allergy (Intermediate, Verified 01/08/24 13:13) HIVES,SWELLING pollen extracts Adverse Reaction (Intermediate, Verified 01/08/24 13:13) Sneezing Medication List - Last Reconciled 01/08/24 by ONESIMO Lockwood albuterol sulfate 90 mcg/actuation (Ventolin HFA) 2 puffs inhalation Q6H PRN calcium citrate 1,000 mg PO DAILY cetirizine (Zyrtec) 10 mg PO DAILY PRN epinephrine 1 IM DIRECTED levonorgestrel (Mirena) intrauterine lpwvbpxswkbw-jsi-ypzr-FA-vit K 45 mg iron- 800 mcg-120 mcg (Bariatric Multivitamins) 1 cap PO DAILY sennosides (senna) 17.2 mg (2 x 8.6 mg) PO BEDTIME PRN 90 days HPI Comments Details: This?a?43?yo female who is s/p LSG without hiatal hernia repair on?12/28/[address] Alonso. Presents for 3 year post op visit. Weight today is 157.6 pounds, with a BMI of 27.9.? There has been a 59.8 pound weight loss,(initial weight 212 pounds) since starting the program on 08/08/18 reflecting a 28.2% total body weight loss and a weight loss of 56 pounds since surgery (operative weight 208.2 pounds) reflecting a 26.8% TBWL since surgery.? No complaints of nausea, emesis, abdominal pain or reflux. Reports lower abdominal discomfort assoc w constipation. BM daily. Wants to switch to Bariatric fusion She had panniculectomy, liposuction and BBL in [facility] [place] on 04/25/22.? She was able to fly back to [place] 17 days later.? She reports she has healed and has no complaints.? She is back at the gym this week.? Present meal plan includes: 930-1100 am fairlife shake (30 gm) 2 pm small meal, or fairlife shake 6 pm dinner: chicken or ground beef turkey, 3 Fleming, 2 forks veg Drinkin-64 oz water daily Exercise routine includes: daily outdoor walking, 300-400 calories Any post op complications: none MAHENDRA: never DM: never HTN: never Hyperlipidemia: never GERD:?0-5 scale ??0 = no symptoms ??1 = symptoms noticeable but not bothersome 2 =symptoms bothersome but not daily ? 3 = symptoms bothersome and daily 4 = symptoms affect daily activities 5 = symptoms are incapacitating, unable to do daily activities ? How bad is the heartburn: 0 ? Heartburn while lying down: 0 ? Heartburn when standing up: 0 ? Heartburn after meals: 0 ? Does heartburn change your diet: 0 ? Does heartburn wake you up from sleep: 0 ? Do you have difficulty swallowin ? Do you have pain with swallowin ? If you take medicine for your reflux, does this affect your daily life: 0 Satisfaction with present condition - satisfied or not satisfied: satisfied [facility] Medical History ASCUS with positive high risk HPV cervical Pre-op evaluation Abnormal uterine bleeding (AUB) Right ACL tear Abnormal uterine bleeding Patellar instability of right knee Knee effusion, right Menorrhagia Hip pain, right Knee pain, right Cellulitis Shortness of breath Preoperative examination Asthma Adjustment disorder, unspecified Bilateral nephrolithiasis Vitamin B 12 deficiency Right renal stone Dark yellow-colored urine H. pylori duodenitis Polyarthralgia Constipation Gestational diabetes Talar fracture Iron deficiency anemia Vitamin D deficiency Ulnar neuropathy Carpal tunnel syndrome, right Anxiety and depression Patellar instability of both knees Migraines GERD (gastroesophageal reflux disease) Obesity (BMI 30-39.9) Surgical History Hx of plastic surgery Hx of knee surgery History of esophagogastroduodenoscopy (EGD) History of removal of laparoscopic gastric banding device S/P laparoscopic sleeve gastrectomy Gastric banding status Hx laparoscopic cholecystectomy Hx of laparoscopic gastric banding H/O: Family History Father Diabetes HTN (hypertension) AA (alcohol abuse) Stomach ulcer Cirrhosis Substance abuse Mother No problems noted. Sister Diabetes Substance abuse Bipolar 1 disorder Brother Diabetes Glaucoma Substance abuse Bipolar 1 disorder Daughter Asthma Chronic eczema Maternal Grandmother Myocardial infarct Bipolar 1 disorder Paternal Grandfather Myocardial infarct Paternal Uncle Substance abuse Liver cancer Throat cancer Other FHx: mental illness Social History Household Members: Children Housing: House Are you a primary lpn care manager to a significant other at home: No Do you presently have visiting nurse or other home services: No Alcohol intake: current Alcohol intake frequency: holidays/special occasions only Comment: once a month Patient Tobacco Use Status: Never used Tobacco e-Cigarette/Vaping Use: Never Used Second Hand Smoke Exposure: No service: No Current occupational status: employed 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 Alonso. Had panniculectomy, liposuction and BBL in [facility] in 04/25/2022 Code(s): Z98.84 - Bariatric surgery status Category: Surgical Plan: Patient is doing well. She is relatively satisfied with her current outcome. Would suggest she use a 26 g fair life shake and a 30 g fair life shake if she is doing 2 shakes per day. Encouraged weightlifting. Discussed slightly low vitamin-A and low normal vitamin B12 and slightly low vitamin-D although these are all improving. Suggested that she be sure to take her multivitamins daily and she did not want to have any other vitamin supplements to take. Seeing as how she had labs done in October, she wishes to do no further labs at this time. She may return to the office in 1 year or sooner should she have any questions or concerns.
[2024-01-08 13:11] VITALS: BP 114/70; PULSE 74; TEMP 35.9; O2SAT 74; BMI 27.9
== END 2024-01-08 14:00 | disposition home or self-care (01) ==
PROVIDERS: PCP Internal Medicine; Visit Provider Physician Assistant Surgical
DX: E66.3 Overweight (principal); Z68.27 Body mass index [BMI] 27.0-27.9, adult; Z90.3 Acquired absence of stomach [part of]; Z98.84 Bariatric surgery status
CPT/HCPCS: 99213

== ENCOUNTER → 2024-01-08 13:03 | Outpatient (BNVA) | payer OTHER, SELFPAY | PROVIDERS: PCP Internal Medicine; Visit Provider Physician Assistant Surgical | DX: Z98.84 Bariatric surgery status (principal) | CPT/HCPCS: 99212 ==

== ENCOUNTER 2024-01-30 12:55 | Outpatient (REF) | payer OTHER, SELFPAY ==
--- NOTE | ~2024-01-30 | US_ITS ---
EXAMINATION: US PELVIS COMPLETE CLINICAL INFORMATION: Ovarian cyst; the last menstrual period was on 01/13/2024. COMPARISON: Pelvic ultrasound dated 10/01/2023. TECHNIQUE: Transabdominal and transvaginal imaging were performed. FINDINGS: The uterus is of normal size and echogenicity, measuring 9.0 x 5.7 x 5.4 cm. The uterus is anteverted. A regular homogeneous endometrium is identified measuring 0.4 cm. An intrauterine device is seen, properly situated within the endometrial canal. Nabothian cysts are seen within the cervix. FIBROIDS: There are 2 fibroids seen. 1. Location: Right cornu, subendometrial. Size: 3.0 x 1.8 x 2.2 cm. Prior: 3.3 x 2.9 x 2.4 cm. Fibroid characteristics: Heterogeneously hypoechoic. 2. Location: Upper leftward body, subendometrial. Size: 2.4 x 2.2 x 2.2 cm. Prior: Not seen. Fibroid characteristics: Heterogeneous echotexture. Both ovaries are of normal size and echogenicity. The ovaries show normal color doppler flow. The right ovary measures 3.6 x 1.8 x 2.1 cm for a volume of 7.9 mL. A 1.4 cm dominant simple follicle is seen, for which no imaging follow-up is recommended. The left ovary measures 2.8 x 2.8 x 2.1 cm for a volume of 8.6 mL. There is no pelvic free fluid. No adnexal mass is seen. US/US pelvic and transvaginal IMPRESSION: 1. There are uterine fibroids, as detailed. 2. An intrauterine device is seen, properly situated within the endometrial canal. 3. Nabothian cysts are seen within the cervix.
== END 2024-01-30 12:56 | disposition home or self-care (01) ==
LOC: HO.US 12:55
PROVIDERS: PCP Internal Medicine; Visit Provider Obstetrics & Gynecology
DX: N83.299 Other ovarian cyst, unspecified side (principal)
CPT/HCPCS: 76830; 76856

== ENCOUNTER 2024-02-13 15:10 | Outpatient (AMB) | payer OTHER, SELFPAY ==
--- NOTE | 2024-02-13 15:15 | MHC.OFFVIS ---
Vital Signs 02/13/24 15:16 Height 5 ft 3 in Weight 157 lb BMI 27.8 BP 104/56 L Intake Visit Reasons: US follow up Allergies house dust mite Allergy (Intermediate, Verified 02/13/24 15:15) Rash latex Allergy (Intermediate, Verified 02/13/24 15:15) Rash seafood Allergy (Intermediate, Verified 02/13/24 15:15) Swelling, Hives shellfish derived [SHELLFISH DERIVED] Allergy (Intermediate, Verified 02/13/24 15:15) HIVES,SWELLING pollen extracts Adverse Reaction (Intermediate, Verified 02/13/24 15:15) Sneezing HPI Comments Details: Presenting for ultrasound follow-up regarding a right complex ovarian cyst previous seen on pelvic ultrasound done in 10/22. Pelvic ultrasound done recently showed the following: The uterus is of normal size and echogenicity, measuring 9.0 x 5.7 x 5.4 cm. The uterus is anteverted. A regular homogeneous endometrium is identified measuring 0.4 cm. An intrauterine device is seen, properly situated within the endometrial canal. Nabothian cysts are seen within the cervix. FIBROIDS: There are 2 fibroids seen. 1. Location: Right cornu, subendometrial. Size: 3.0 x 1.8 x 2.2 cm. Prior: 3.3 x 2.9 x 2.4 cm. Fibroid characteristics: Heterogeneously hypoechoic. 2. Location: Upper leftward body, subendometrial. Size: 2.4 x 2.2 x 2.2 cm. Prior: Not seen. Fibroid characteristics: Heterogeneous echotexture. Both ovaries are of normal size and echogenicity. The ovaries show normal color doppler flow. The right ovary measures 3.6 x 1.8 x 2.1 cm for a volume of 7.9 mL. A 1.4 cm dominant simple follicle is seen, for which no imaging follow-up is recommended. The left ovary measures 2.8 x 2.8 x 2.1 cm for a volume of 8.6 mL. There is no pelvic free fluid. No adnexal mass is seen. FOR[facility]LY [facility] Medical History ASCUS with positive high risk HPV cervical Pre-op evaluation Abnormal uterine bleeding (AUB) Right ACL tear Abnormal uterine bleeding Patellar instability of right knee Knee effusion, right Menorrhagia Hip pain, right Knee pain, right Cellulitis Shortness of breath Preoperative examination Asthma Adjustment disorder, unspecified Bilateral nephrolithiasis Vitamin B 12 deficiency Right renal stone Dark yellow-colored urine H. pylori duodenitis Polyarthralgia Constipation Gestational diabetes Talar fracture Iron deficiency anemia Vitamin D deficiency Ulnar neuropathy Carpal tunnel syndrome, right Anxiety and depression Patellar instability of both knees Migraines GERD (gastroesophageal reflux disease) Obesity (BMI 30-39.9) Surgical History Hx of plastic surgery Hx of knee surgery History of esophagogastroduodenoscopy (EGD) History of removal of laparoscopic gastric banding device S/P laparoscopic sleeve gastrectomy Gastric banding status Hx laparoscopic cholecystectomy Hx of laparoscopic gastric banding H/O: Family History Father Diabetes HTN (hypertension) AA (alcohol abuse) Stomach ulcer Cirrhosis Substance abuse Mother No problems noted. Sister Diabetes Substance abuse Bipolar 1 disorder Brother Diabetes Glaucoma Substance abuse Bipolar 1 disorder Daughter Asthma Chronic eczema Maternal Grandmother Myocardial infarct Bipolar 1 disorder Paternal Grandfather Myocardial infarct Paternal Uncle Substance abuse Liver cancer Throat cancer Other FHx: mental illness Social History Household Members: Children Housing: House Are you a primary director of health care marketing to a significant other at home: No Do you presently have visiting nurse or other home services: No Alcohol intake: current Alcohol intake frequency: holidays/special occasions only Comment: once a month Patient Tobacco Use Status: Never used Tobacco e-Cigarette/Vaping Use: Never Used Second Hand Smoke Exposure: No service: No Current occupational status: employed 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 Sexual orientation: Straight/Heterosexual Gender identity: Female Cognitive needs: No Hearing needs: No Vision needs: Yes (glasses) Female Reproductive History Menstrual Age of Menarche: 13 Review of Systems Const All systems reviewed & are unremarkable except as noted in HPI and below Reports as per HPI and Reports no additional complaints GI Reports no additional complaints Reports no additional complaints Physical Exam Vital Signs: Last Vital Signs BP 104/56 L 02/13/24 15:16 BMI result Body Mass Index 27.8 Assessment & Plan Assessment & Plan (1) Uterine myoma: Code(s): D25.9 - Leiomyoma of uterus, unspecified Category: Medical Plan: Discussed with the patient the findings on pelvic ultrasound & the risk of myosarcoma; discussed with the patient the options of treatment including expectant management versus hysterectomy; the pros and cons, risks benefits of each approach were discussed with the patient including the fact that in cases of myosarcoma, surgical treatment can lead to early diagnosis and positively affects the prognosis; after further discussion, the patient decided to proceed with expectant management. Will repeat pelvic ultrasound periodically. Instructions given to patient to call in case any of the following occurs: pressure symptoms, abnormal uterine bleeding, pelvic pain; and to schedule a six-months pelvic ultrasound and a follow-up appointment . All questions answered, the patient verbalized understanding and agreed with the plan . (2) Complex ovarian cyst: Code(s): N83.299 - Other ovarian cyst, unspecified side Category: Medical Plan: Discussed with the patient ultrasound findings showing the previously identified complex cyst has resolved. The patient was instructed to call if symptoms recur. All questions were answered the patient verbalized understanding. Orders: Orders US pelvic and transvaginal 08/31/24 D25.9 - Leiomyoma of uterus, unspecified Coding Level of Care Code Est Pt Level 3 (19947) Diagnoses Uterine myoma D25.9 Complex ovarian cyst N83.299
[2024-02-13 15:16] VITALS: BP 104/56; BMI 27.8
== END 2024-02-13 15:24 | disposition home or self-care (01) ==
PROVIDERS: PCP Internal Medicine; Visit Provider Obstetrics & Gynecology
DX: D25.9 Leiomyoma of uterus, unspecified (principal); N83.299 Other ovarian cyst, unspecified side
CPT/HCPCS: 99213

== ENCOUNTER → 2024-02-13 15:10 | Outpatient (BNVA) | payer OTHER, SELFPAY | PROVIDERS: PCP Internal Medicine; Visit Provider Obstetrics & Gynecology ==

== ENCOUNTER → 2024-02-20 17:57 | Outpatient (BNV) | payer OTHER, SELFPAY ==
--- NOTE | 2024-02-20 17:57 | A.OFFPC_ITS ---
Intake Visit Reasons: Amb Documentation Allergies house dust mite Allergy (Intermediate, Verified 02/13/24 15:15) Rash latex Allergy (Intermediate, Verified 02/13/24 15:15) Rash seafood Allergy (Intermediate, Verified 02/13/24 15:15) Swelling, Hives shellfish derived [SHELLFISH DERIVED] Allergy (Intermediate, Verified 02/13/24 15:15) HIVES,SWELLING pollen extracts Adverse Reaction (Intermediate, Verified 02/13/24 15:15) Sneezing Tobacco use date assessed: 08/05/23 Dental Screening Dental Screen Date: 09/12/23 HPI Amb Documentation HPI Details 43-year-old overweight female with a his tory of laparoscopic sleeve gastrectomy calling in for an acute problem.1 day, NGUYEN, fevers, covid positive having nasal congestion sore throat. PFSH Medical History ASCUS with positive high risk HPV cervical Pre-op evaluation Abnormal uterine bleeding (AUB) Right ACL tear Abnormal uterine bleeding Patellar instability of right knee Knee effusion, right Menorrhagia Hip pain, right Knee pain, right Cellulitis Shortness of breath Preoperative examination Asthma Adjustment disorder, unspecified Bilateral nephrolithiasis Vitamin B 12 deficiency Right renal stone Dark yellow-colored urine H. pylori duodenitis Polyarthralgia Constipation Gestational diabetes Talar fracture Iron deficiency anemia Vitamin D deficiency Ulnar neuropathy Carpal tunnel syndrome, right Anxiety and depression Patellar instability of both knees Migraines GERD (gastroesophageal reflux disease) Obesity (BMI 30-39.9) Surgical History Hx of plastic surgery Hx of knee surgery History of esophagogastroduodenoscopy (EGD) History of removal of laparoscopic gastric banding device S/P laparoscopic sleeve gastrectomy Gastric banding status Hx laparoscopic cholecystectomy Hx of laparoscopic gastric banding H/O: Family History Father Diabetes HTN (hypertension) AA (alcohol abuse) Stomach ulcer Cirrhosis Substance abuse Mother No problems noted. Sister Diabetes Substance abuse Bipolar 1 disorder Brother Diabetes Glaucoma Substance abuse Bipolar 1 disorder Daughter Asthma Chronic eczema Maternal Grandmother Myocardial infarct Bipolar 1 disorder Paternal Grandfather Myocardial infarct Paternal Uncle Substance abuse Liver cancer Throat cancer Other FHx: mental illness Social History Household Members: Children Housing: House Are you a primary care management associate to a significant other at home: No Do you presently have visiting nurse or other home services: No Alcohol intake: current Alcohol intake frequency: holidays/special occasions only Comment: once a month Patient Tobacco Use Status: Never used Tobacco e-Cigarette/Vaping Use: Never Used Second Hand Smoke Exposure: No service: No Current occupational status: employed 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 Stephen Devlin, Gabriela Jenkins, Reddy Garcia and colleagues, with an educational beto from [employer]. Physical exam (Primary Care) Tobacco/Smoking Status: Tobacco use Status Tobacco use date assessed 08/05/23 01/03/24 14:42 Patient Tobacco Use Status Never used Tobacco 01/03/24 14:42 e-Cigarette/Vaping Use Never Used 01/03/24 14:42 Thrive Assessment: Date of Thrive Assessment Date Thrive assessed 08/05/23 01/03/24 14:42 Telehealth Telehealth Telehealth Platform: Telephone Location of provider rendering services: practice address Location of patient: address on file Patient Identification confirmed using: Name, : Yes Telehealth method: voice only Patient verbally consented to treatment: Yes Patient verbally consented to billing insurance company: Yes Patient informed of any privacy concerns related to visit: Yes Minutes spent on Phone/Video with Pt.: 15 Assessment and Plan Assessment & Plan (1) COVID-19 virus infection: Comment: 02/20/2024 Code(s): U07.1 - COVID-19 Plan: For the sore throat can take Cepacol lozenges, discussed about Delsym to help with dry cough so she can rest and advised to increase oral fluids. Patient also can take Tylenol for chills and fever. Medications: New nirmatrelvir-ritonavir 300 mg (150 mg x 2)-100 mg (Paxlovid) take TWO 150 mg tablets of nirmatrelvir with ONE 100 mg tablet of ritonavir twice daily for 5 days PO 30 ea 0RF U07.1 - COVID-19 Coding Level of Care Code Tele Est Pt Level 3 (28525) Diagnoses COVID-19 virus infection U07.1
== END ==
PROVIDERS: PCP Internal Medicine; Visit Provider Internal Medicine
DX: U07.1 COVID-19 (principal)
CPT/HCPCS: 99213

== ENCOUNTER 2024-08-31 15:01 | Outpatient (REF) | payer OTHER, SELFPAY ==
--- NOTE | ~2024-08-31 | US_ITS ---
CLINICAL HISTORY: D25.9 - Leiomyoma of uterus, unspecified US pelvis transabdominal and transvaginal Comparison: US/SR - US PELVIC AND TRANSVAGINAL - 01/30/24 13:35 EDT Findings: Transabdominal scanning performed for overall anatomy. Transvaginal scanning performed for additional detail. Anteverted uterus is 11 cm length. There is a 3.7 x 3.0 x 2.8 cm subserosal fibroid within the right uterine body, slightly increased in size since the prior study ( previously 3.0 x 1.8 x 2.6 cm) Endometrium 6 mm thickness. There is an intrauterine device within the endometrial canal. Right ovary 3.8 x 2.3 x 2.4 cm. Left ovary 4.4 x 1.9 x 2.8 cm. There is a 1.9 x 1.2 x 1.5 cm complex cyst within the right ovary, compatible with a hemorrhagic physiologic cyst. There is a 3.1 x 1.7 x 2.0 cm simple appearing cysts within the left ovary, compatible with a dominant follicle. Normal color Doppler of both ovaries. No free fluid. IMPRESSION: 1. The intrauterine device is within the endometrial canal. 2. There is a 3.7 cm subserosal fibroid within the right uterine body. The previously seen 2.4 cm submucosal fibroid was not visualized on this exam. 3. There are small cysts within the bilateral ovaries, compatible with physiologic cysts. This document has been electronically signed by: Miroslava Brower MD on 09/01/2024 15:30:44
--- OUTSIDE RECORDS SUMMARY | 2024-08-31 17:54 | XMS_ITS | Clinical Summary ---
Author Organization [facility] Address [address] [place] [id number] Phone Care Team Providers Care Lime Burner Name Role Phone Unavailable Primary Care Provider Unavailabl e Social History Tobacco Use Types Packs/Day Years Used Date Smoking Tobacco: Never Assessed Comments Unknown Sex and Gender Information Value Date Recorded Sex Assigned at Not on file Legal Sex Female 4:36 PM EDT Gender Identity Not on file Sexual Orientation Not on file Plan of Treatment Health Maintenance Due Date Last Done Comments MMR Vaccines (1 of 1 - Stand neeta series) 1983 Varicella Vaccines (1 of 2 - 13+ 2-dose series) 1995 Consider Men B Vaccine (1 of 2 - Bexsero 2-dose series) 1998 DTaP,Tdap,and Td Vaccines (1 - Tdap) 2000 Hepatitis B Vaccines (1 of 3 - 19+ 3-dose series) 2001 Influenza Vaccines (#1) 2024 COVID-19 Vaccine ( - 2023-2 5 season) 2024 HIB Vaccines Aged Out No longer eligi ble based on patient's age to complete this topic HPV Vaccines Aged Out No longer eligi ble based on patient's age to complete this topic Hepatitis A Vaccines Aged Out No long er eligible based on patient's age to complete this topic IPV Vaccines Aged Out No longer eligi ble based on patient's age to complete this topic Men B Vaccine Aged Out No longer elig ible based on patient's age to complete this topic Meningococcal Vaccine Aged Out No anju mathew eligible based on patient's age to complete this topic Pneumococcal Vaccine Aged Out No long er eligible based on patient's age to complete this topic
--- OUTSIDE RECORDS SUMMARY | 2024-08-31 17:54 | XMS_ITS | Clinical Summary ---
Author Organization [facility] Address [address] [place] [address] Care Team Providers Care Home Builder Name Role Phone Lashanda Owens MD Primary Care Provider Surgical History Surgery Date Site/Laterality Comments SECTION PROCEDURE: HISTORICAL LAPAROSCOPIC GASTRIC BANDING 04/28/2013 PROCEDURE: LAP ADJUSTABLE GASTRIC BAND CHOLECYSTECTOMY 02/16/2019 PROCEDURE: LAPAROSCOPY, CHOLECYSTECTOMY; COMMENT: Dr. Mary Medical History Medical History Date Comments Depression DX:Depression Microcytic hypochromic anemia 07/27/2010 DX :Microcytic hypochromic anemia Hair loss disorder 07/24/2010 DX:Hair loss disorder; COMMENT: alopecia Asthma DX:Asthma Encounter for insertion of Mirena IUD 2013 DX:Encounter for insertion of Mirena IUD Vitamin B12 deficiency DX:Vitami n B12 deficiency Obesity (BMI 30-39.9) 11/28/2018 DX:Obesity (BMI 30-39.9) Family History Medical History Relation Name Comments Asthma Brother 1 Eczema Diabetes Brother 2 Glaucoma Diabetes Father HTN, Kidney Ramin lure No Known Problems Maternal Grandfather Diabetes Maternal Grandmother Stroke, Mental Disorder Anemia Mother HIV Stroke Paternal Grandfather Diabetes Paternal Grandmother Diabetes Sister 1 Relation Name Status Comments Brother 1 Alive Brother 2 Alive Daughter 1 Alive Daughter 2 Alive Father Maternal Grandfather Maternal Grandmother Mother (Age 25) Paternal Grandfather Paternal Grandmother Sister 1 Alive Sister 2 Alive Son Alive Social History Tobacco Use Types Packs/Day Years Used Date Smoking Tobacco: Never Smokeless Tobacco: Never Alcohol Use Standard Drinks/Week Comments Yes 0 (1 standard drink = 0.6 oz pur e alcohol) Comments Unknown Sex and Gender Information Value Date Recorded Sex Assigned at Not on file Legal Sex Female 4:37 AM EST Gender Identity Not on file Sexual Orientation Not on file Obstetrics History Plan of Treatment Health Maintenance Due Date Last Done Comments Breast Cancer Screening 1982 Hepatitis B Vaccines (1 of 3 - 19+ 3-dose series) 2001 DTaP,Tdap,and Td Vaccines (2 - Td or Tdap) 07/24/2020 07/24/2010 Cervical Cancer Screening: P ap Smear 07/08/2021 07/08/2018 COVID-19 Vaccine (1 - 2023-2 5 season) 2024 Influenza Vaccine (#1) 2024 HIB Vaccines Aged Out No longer [...] on patient's age to complete this topic MMR Vaccines Aged Out No longer eligi ble based on patient's age to complete this topic Meningococcal ACWY Vaccine Aged Out N o longer eligible based on patient's age to complete this topic Meningococcal B Vacine Aged Out No lo nger eligible based on patient's age to complete this topic Pneumococcal Vaccine: Pediat rics (0 to 5 Years) and At-Risk Patients (6 to 64 Years) Aged Out No longer eligi ble based on patient's age to complete this topic RSV Immunization Patients Un ava 20 months Aged Out No longer eligible b ased on patient's age to complete this topic Varicella Vaccines Aged Out No longer eligible based on patient's age to complete this topic Procedures Procedure Name Priority Date/Time Associated Diagnosis Comments PAP SMEAR Routine 07/08/2018 from Last 3 Months or Most Recently Relevant to Health Maintenance Results * Pap smear (07/08/2018) 07/08/2018 Narrative HISTORICAL TESTING LAB RESULTING AGENCY - 07/21/2018 2:41 PM EST [id number] THINPREP PAP AND CELL BLOCK: NEGATIVE FOR SQUAMOUS INTRAEPITHELIAL LESION AND MALIGNANCY . CLUE CELLS ARE PRESENT. HYPERKERATOSIS MACKENZIE NAVARRO , PUNEET(ASCP) (CASE SCREENED 07 14 2018) ALEXI CHRISTOPHER M.D. , PATHOLOGIST (CASE ELECTRONICALLY SIGNED 07 18 2018) RESULT OF APTIMA HIGH RISK HPV ASSAY: HIGH RISK HPV: ??NEGATIVE (SEROTYPES 16,18,31,33,35,39,45,51,52,56,58,59,66,68) COMPLETED ON 2018-07-10 ADEQUACY: SATISFACTORY ENDOCERVICAL/TRANSFORMATION ZONE COMPONENT ABSENT. SOURCE: THINPREP PAP HPV ANY DX: ??REFLEX 16 AND 18, CERVICAL, IMAGED CLINICAL INFORMATION: HPV ANY DIAGNOSIS. Z12.4, Z01.419 ??CB 07/10/18 us Viri Smith [facility] LAB CYTOLOGY ORDERABLES Final R esult HISTORICAL TESTING LAB RESULTING AGENCY from Last 3 Months or Most Recently Relevant to Health Maintenance Care Teams Home Builder Relationship Specialty Start Date End Date Lashanda Owens MD PCP - General Internal Medicine 07/08/18
== END 2024-08-31 15:02 | disposition home or self-care (01) ==
LOC: HO.US 15:01
PROVIDERS: PCP Internal Medicine; Visit Provider Obstetrics & Gynecology
DX: D25.9 Leiomyoma of uterus, unspecified (principal)
CPT/HCPCS: 76830; 76856

== ENCOUNTER → 2024-08-31 15:02 | Outpatient (BNV) | payer OTHER, SELFPAY | PROVIDERS: PCP Internal Medicine; Visit Provider Radiology Diagnostic Radiology | DX: D25.9 Leiomyoma of uterus, unspecified (principal) | CPT/HCPCS: 76830; 76856 ==

== ENCOUNTER 2024-09-16 15:07 | Outpatient (AMB) | payer OTHER, SELFPAY ==
--- NOTE | 2024-09-16 15:10 | A.OFFPC_ITS ---
Vital Signs 09/16/24 15:11 Height 5 ft 3 in Weight 160 lb 6 oz BMI 28.4 BP 100/64 Blood Pressure Location Lt brachial Position Sitting Pulse 66 Pulse Source Pulse Oximeter Temp 97.1 F Temp Source Temporal Artery Scan Pulse Oximetry (%) 99 Oxygen Delivery Method Room Air Intake Visit Reasons: annual exam Intake Note: Patient is here today for a physical. Title Curative Specialist Required: No Chinchilla Machine Operator: Present Accompanied by: Daughter Allergies house dust mite Allergy (Intermediate, Verified 09/16/24 15:11) Rash latex Allergy (Intermediate, Verified 09/16/24 15:11) Rash seafood Allergy (Intermediate, Verified 09/16/24 15:11) Swelling, Hives shellfish derived [SHELLFISH DERIVED] Allergy (Intermediate, Verified 09/16/24 15:11) HIVES,SWELLING pollen extracts Adverse Reaction (Intermediate, Verified 09/16/24 15:11) Sneezing Medication List - Last Reconciled 09/16/24 by Flores Cesar MD albuterol sulfate 90 mcg/actuation (Ventolin HFA) 2 puffs inhalation Q6H PRN calcium citrate 1,000 mg PO DAILY cetirizine (Zyrtec) 10 mg PO DAILY PRN epinephrine 1 IM DIRECTED levonorgestrel (Mirena) intrauterine kjeyuwqiwnvv-yse-nmir-FA-vit K 45 mg iron- 800 mcg-120 mcg (Bariatric Multivitamins) 1 cap PO DAILY sennosides (senna) 17.2 mg (2 x 8.6 mg) PO BEDTIME PRN 90 days Tobacco use date assessed: 09/16/24 Dental Screening Dental Screen Date: 09/16/24 Did you have a dental visit in the last 12 months?: Yes Did you have a dental problem in the last 6 months where you did not have access to dental care?: No Was dental information given to patient?: Patient has dentist HPI annual exam HPI Details dizzy [facility] Medical History (Updated 09/16/24 @ 15:35 by Flores Cesar MD) ASCUS with positive high risk HPV cervical Pre-op evaluation Abnormal uterine bleeding (AUB) Right ACL tear Abnormal uterine bleeding Patellar instability of right knee Knee effusion, right Menorrhagia Hip pain, right Knee pain, right Cellulitis Shortness of breath Preoperative examination Asthma Adjustment disorder, unspecified Bilateral nephrolithiasis Vitamin B 12 deficiency Right renal stone Dark yellow-colored urine H. pylori duodenitis Polyarthralgia Constipation Gestational diabetes Talar fracture Iron deficiency anemia Vitamin D deficiency Ulnar neuropathy Carpal tunnel syndrome, right Anxiety and depression Patellar instability of both knees Migraines GERD (gastroesophageal reflux disease) Obesity (BMI 30-39.9) Surgical History Hx of plastic surgery Hx of knee surgery History of esophagogastroduodenoscopy (EGD) History of removal of laparoscopic gastric banding device S/P laparoscopic sleeve gastrectomy Gastric banding status Hx laparoscopic cholecystectomy Hx of laparoscopic gastric banding H/O: Family History Father Diabetes HTN (hypertension) AA (alcohol abuse) Stomach ulcer Cirrhosis Substance abuse Mother No problems noted. Sister Diabetes Substance abuse Bipolar 1 disorder Brother Diabetes Glaucoma Substance abuse Bipolar 1 disorder Daughter Asthma Chronic eczema Maternal Grandmother Myocardial infarct Bipolar 1 disorder Paternal Grandfather Myocardial infarct Paternal Uncle Substance abuse Liver cancer Throat cancer Other FHx: mental illness Social History Household Members: Children Housing: House Are you a primary wound care nurse to a significant other at home: No Do you presently have visiting nurse or other home services: No Alcohol intake: current Alcohol intake frequency: holidays/special occasions only Comment: once a month Patient Tobacco Use Status: Never used Tobacco e-Cigarette/Vaping Use: Never Used Second Hand Smoke Exposure: No service: No Current occupational status: employed Current occupation: [employer] - Right Handed Sexual orientation: Straight/Heterosexual Gender identity: Female Cognitive needs: No Hearing needs: No Vision needs: Yes (glasses) Female Reproductive History Menstrual Age of Menarche: 13 Questionnaire PHQ-9 Over the last 2 weeks, how often have you been bothered by any of the following problems? 1. Little interest or pleasure in doing things: not at all 2. Feeling down, depressed, or hopeless: not at all 3. Trouble falling or staying asleep, or sleeping too much: not at all 4. Feeling tired or having little energy: not at all 5. Poor appetite or overeating: not at all 6. Feeling bad about yourself - or that you are a failure or have let yourself or your family down: not at all 7. Trouble concentrating on things, such as reading the newspaper or watching television: not at all 8. Moving or speaking so slowly that other people could have noticed. Or the opposite - being so fidgety or restless that you have been moving around a lot more than usual: not at all 9. Thoughts that you would be better off or of hurting yourself in some way: not at all Total score: 0 Depression Screening Interpretation: Negative Depression Screening Done: Yes Source: Developed by Drs. Stephen Devlin, Gabriela Jenkins, Reddy Garcia and colleagues, with an educational beto from [employer] [place]. Thrive Questionnaire Date Thrive assessed: 09/16/24 I am a: Patient What is your living situation today?: I have a steady place to live Within the past 12 months, did the food you bought not last and you didn't have the money to get more?: Often true Within the past 12 months, did you worry whether your food would run out before you got money to buy more?: Often true Do you have trouble paying for medicines?: No Do you have trouble getting transportation to medical appointments?: No Do you have trouble paying your heating and electricity bill?: No Do you have trouble taking care of your child, family member or friend?: No Do you have trouble with day-to-day activities such as bathing, preparing meals, shopping, managing finances, etc.?: No Are you currently unemployed and looking for a job?: No Are you interested in more education?: No Please select the resources that you would like help with: Food Currently or been in a relationship where the following occur: No concerns reported THRIVE Score: 2 AUDIT C Alcohol Use Questionnaire (AUDIT-C) 1. How often do you have a drink containing alcohol?: Never 3. How often do you have six or more drinks on one occasion?: Never Total Score: 0 KINZA-7 AMB Questionnaire KINZA-7 Date KINZA - 7 assessed: 09/16/24 Feeling nervous, anxious, or on edge: 0 = Not at all Not being able to stop or control worryin = Not at all Worrying too much about different things: 0 = Not at all Trouble relaxin = Several days Being so restless that it is hard to sit still: 1 = Several days Becoming easily annoyed or irritable: 0 = Not at all Feeling afraid as if something awful might happen: 0 = Not at all Total KINZA-7 score (0-4 normal; 5-9 mild; 10-14 moderate; 15-21 severe): 2 Source: Developed by Drs. Stephen Devlin, Gabriela Jenkins, Reddy Garcia and colleagues, with an educational beto from [employer] [place]. Review of Systems Const Denies poor appetite and Denies weakness Eyes Denies no additional complaints ENT Reports Normal hearing present, Denies dizziness, Denies nasal congestion, Denies tinnitus and Denies sore throat Card Denies chest pain, Denies syncope, Denies rapid heart rate and Denies dyspnea Resp Denies cough and Denies dyspnea GI Denies change in stool character, Reports constipation, Denies diarrhea, Denies nausea and Denies vomiting Denies urinary frequency, Denies difficulty voiding and Denies dysuria Neuro Reports Normal hearing present, Denies confusion, Denies dizziness, Denies syncope and Denies weakness Psych Denies confusion Physical exam (Primary Care) Vital Signs: Last Vital Signs Temp 97.1 F 09/16/24 15:11 Pulse 66 09/16/24 15:11 BP 100/64 09/16/24 15:11 Pulse Ox 99 09/16/24 15:11 Oxygen Delivery Method Room Air 09/16/24 15:11 BMI result Body Mass Index 28.4 Tobacco/Smoking Status: Tobacco use Status Tobacco use date assessed 09/16/24 09/16/24 15:16 Patient Tobacco Use Status Never used Tobacco 09/16/24 15:16 e-Cigarette/Vaping Use Never Used 09/16/24 15:16 PHQ-9: PHQ-9 Score PHQ-9: Total score 0 09/16/24 15:16 Depression Screening Interpretation: Negative Thrive Assessment: Date of Thrive Assessment Date Thrive assessed 09/16/24 09/16/24 15:16 Currently or been in a relationship where the following occur: No concerns reported Const General: No confusion Orientation/consciousness: No confusion HENMT Head: Yes normocephalic Ears: external ears normal and TM's normal bilaterally Face and sinus: Yes normal facial exam Mouth: moist mucous membranes Throat: Yes tonsils normal Eyes Conjunctivae: conjunctivae normal Pupils: Equal, round and reactive pupils present and Pupil accommodation reflex normal Direct Ophthalmoscopy: normal light reflex Neck Neck: No lymphadenopathy Thyroid: Thyroid normal Chest Chest palpation & inspection: normal inspection of the chest Resp Effort & Inspection: normal respiratory effort and no audible wheezes Auscultation: clear to auscultation bilaterally, no crackles, no wheezes and lung sounds not diminished Cardio Rate: regular rate Rhythm: regular rhythm Peripheral pulses: radial pulses present and dorsalis pedis present GI Palpation (GI): no masses Auscultation: normal bowel sounds and normoactive bowel sounds Rectal Exam - Female: deferred Skin General skin exam: no rashes or lesions noted Rashes: no rashes Neuro General: No confusion Cranial nerves: Yes Equal, round and reactive pupils present and Yes Normal hearing present Cognition (Neuro): normal cognition Gait exam (Neuro): Normal gait present Motor exam (neuro): 5/5 motor strength present throughout Deep tendon reflexes (DTR's): Right brachioradialis reflex intensity grade: 2+, Left brachioradialis reflex intensity grade: 2+, Right patellar reflex intensity grade: 2+ and Left patellar reflex intensity grade: 2+ Extrem General: No edema Coding Level of Care Code Est Pt Prev Care 40-64y(10767) Diagnoses Annual physical exam Z00.00 S/P laparoscopic sleeve gastrectomy Z98.84 Overweight E66.3 Vitamin B12 deficiency E53.8 GERD (gastroesophageal reflux disease) K21.9 Asthma J45.909 Uterine myoma D25.9 Vitamin A deficiency E50.9 Vitamin D deficiency E55.9 Acute bronchitis J20.9 Assessment & Plan Assessment & Plan (1) Annual physical exam: Code(s): Z00.00 - Encounter for general adult medical examination without abnormal findings Category: Medical Plan: Patient is advised to eat healthy, keep well hydrated, keep active and have a dequate sleep. (2) S/P laparoscopic sleeve gastrectomy: Comment: 2020 laparoscopic sleeve gastrectomy 12/28/[address] Alonso. Had panniculectomy, liposuction and BBL in [facility] in 04/25/2022 Code(s): Z98.84 - Bariatric surgery status Category: Surgical Plan: Continue to follow-up with bariatric surgeon (3) Overweight: Code(s): E66.3 - Overweight Category: Medical Plan: Diet and exercise (4) Vitamin B12 deficiency: Code(s): E53.8 - Deficiency of other specified B group vitamins Category: Medical Plan: Discussed about vitamin B12 deficiency (5) GERD (gastroesophageal reflux disease): Code(s): K21.9 - Gastro-esophageal reflux disease without esophagitis Category: Medical Plan: Avoid the foods that causes that usually spicy foods, tomato products, juices, coffee, soda and foods that your sensitive to. After eating do not lie down, allow 3-4 hours before in lie down. And keep the head of bed above 30 degrees to avoid the acid from going up. (6) Asthma: Code(s): J45.909 - Unspecified asthma, uncomplicated Category: Medical Plan: Patient on albuterol inhaler as needed (7) Uterine myoma: Code(s): D25.9 - Leiomyoma of uterus, unspecified Category: Medical Plan: Continue to follow-up with gynecology (8) Vitamin A deficiency: Code(s): E50.9 - Vitamin A deficiency, unspecified Category: Medical Plan: Discussion about vitamin a deficiency (9) Vitamin D deficiency: Code(s): E55.9 - Vitamin D deficiency, unspecified Category: Medical Plan: Vitamin-D 1000 to 2000 units once a day (10) Acute bronchitis: Code(s): J20.9 - Acute bronchitis, unspecified Category: Medical Plan History of Present Illness The patient is a 44-year-old female presenting for a physical examination and management of vitamin deficiencies, along with a follow-up on a recent respiratory infection. She has a history of being overweight and has undergone laparoscopic sleeve gastrectomy and pannicullectomy in the past. She reports her current regimen includes omeprazole for GERD and albuterol for asthma, with recent use due to respiratory symptoms of a cough and chest tightness. Her background includes several vitamin deficiencies identified following her bariatric surgery. Lab work from the previous year shows mild leukopenia but otherwise stable hematological and metabolic panels. The reported family history is significant for heart disease and liver cancer, influencing her current health maintenance strategies. Health Maintenance - Maintain supplementation for Vitamin A, B12, and D deficiencies. - Continual follow-up with gynecology for uterine fibroid surveillance. - Regular monitoring of blood pressure as it is currently well-controlled. - Discussed risks of GERD exacerbation with dietary considerations and use of omeprazole. - Evaluated respiratory health with potential asthma exacerbation, discussed use of inhaler. - Discussed moderate alcohol consumption and avoidance of smoking and recreational drug use. - Eye care follow-up suggested for vision problems possibly due to starting cataracts. Social History - Occasional alcohol consumption, limited to one cup of wine typically on holidays. - Denies use of tobacco and recreational drugs. - Experiences vision problems; discussed previous unsatisfactory prescriptions and current need for new corrective eyewear. - Family history significant for cardiovascular issues and liver cancer. Review of Systems - Constitutional: Denies fever, reports chills at night. - Respiratory: Reports chest tightness, coughing, productive phlegm. - Neurological: Reports pounding headaches. - Visual: Reports vision impairment with current prescription glasses. - Gastrointestinal: Denies vomiting and nausea. - Genitourinary: No reported nocturia. - Musculoskeletal: Reports stiffness or soreness not specified. Physical Exam General: Cooperative, healthy appearing, comfortable, no acute distress and well developed Orientation: Patient oriented x3 Limitations: No limitations Head: Normal to inspection Ears: Hearing grossly normal bilaterally, but patient reports ears are clocking Nose: Normal external nose present Face and sinus: Normal facial exam Eyes: Appearance normal, both eyes and all related structures, but patient reports vision issues and possible early cataracts Neck: Normal visual inspection and Yes full ROM Respiratory: Normal respiratory effort, but patient reports tight chest and cough. No wheezing heard, but crackling noted. Cardiovascular: Regular rate and rhythm. Normal S1 and S2 GI: Normal to inspection. Soft to palpation and nontender Skin: No rashes or lesions noted Neuro: Patient oriented x3 Extremities: Normal to inspection Results - Labs: Mild leukopenia, normal renal function, normal blood sugar, normal cholesterol. - Imaging: Pelvic ultrasound with a 3.7 cm fibroid in the right uterine body and small bilateral ovarian cysts. - Labs (Vitamin levels): Low Vitamin A, Vitamin D, Vitamin B12 documented previously. Plan The patient's respiratory symptoms thought to be viral with asthma involvement are managed with albuterol; an antibiotic is prescribed if no improvement is seen. For GERD management, omeprazole was prescribed with dietary considerations. Continued monitoring advised for vitamin deficiencies, uterine fibroid, and recommended vision follow-up due to impaired eyesight. Education on minimizing familial risk factors with lifestyle modifications was provided. A follow-up with gynecology regarding pelvic findings and vitamins re-evaluation agreed upon, supported by a sustainable wellness and health maintenance plan. Patient was informed and verbally consented to the use of an ambient scribe for clinic note documentation during this visit. Discussion Notes I discussed in detail the current respiratory symptoms, likely viral, with the patient and underlined the management plan involving the continued use of albuterol as needed. The risk-benefit analysis of antibiotics was addressed, with clear instructions to initiate if symptoms do not improve. I outlined the plan regarding GERD with omeprazole prescription and dietary modification advisement. Vitamin deficiency management was discussed, emphasizing the importance of ongoing supplementation and dietary adjustments post-bariatric surgery. I also recommended further evaluation with a commercial title examiner regarding uterine fibroids and her ocular symptoms potentially linked to early cataracts, providing alternate options for eye care assessment should her current meter and service line inspector not be suitable. The conversation concluded with advisement on minimal alcohol consumption, avoidance of tobacco, and other risk-reducing lifestyle habits considering her familial health predispositions. Patient Instructions - Continue using albuterol as needed for asthma symptoms. - Start omeprazole for GERD, take 30 capsules as prescribed. - Follow-up with gynecology as planned regarding fibroid monitoring. - Maintain vitamin supplements as instructed. - If respiratory symptoms don't improve, start prescribed antibiotics. - Consider re-evaluation for eyeglasses; book an appointment with another meter and service line inspector if unresolved. - Monitor diet to avoid GERD triggers, especially during illness. - Limit alcohol intake and avoid tobacco use. - Increase water intake for current respiratory symptoms. - Schedule follow-up appointments for vitamin levels check and further health assessments. Medications: New azithromycin (Zithromax) For 250 mg dose pack: take 500 mg today (day 1), then 250 mg for 4 days (days 2-5) PO 6 tabs 0RF J20.9 - Acute bronchitis, unspecified omeprazole 20 mg PO DAILY 30 caps 0RF K21.9 - Gastro-esophageal reflux disease without esophagitis
[2024-09-16 15:11] VITALS: BP 100/64; PULSE 66; TEMP 36.2; O2SAT 99; BMI 28.4
--- OUTSIDE RECORDS SUMMARY | 2024-09-16 17:10 | XMS_ITS | Clinical Summary ---
Author Organization [facility] Address [address] [place] [phone] Phone Care Team Providers Care News Technical Director Name Role Phone Unavailable Primary Care Provider [...]
--- OUTSIDE RECORDS SUMMARY | 2024-09-16 17:10 | XMS_ITS | Clinical Summary ---
Author Organization [facility] Address [address] [place] [address] Care Team Providers Care Aircraft Engine Mechanic Supervisor Name Role Phone Lashanda Owens MD Primary [...] RESULTING AGENCY - 07/21/2018 2:41 PM EST [id number] THINPREP PAP AND CELL BLOCK: NEGATIVE FOR [...] Z12.4, Z01.419 ??CB 07/10/18 us Viri Smith [facility] CYTOLOG[facility] ORDERABLES Final R esult HISTORICAL TESTING LAB RESULTING AGENCY from Last 3 Months or Most Recently Relevant to Health Maintenance Care Teams Aircraft Engine Mechanic Supervisor Relationship Specialty Start Date End Date Lashanda Owens MD PCP - General Internal Medicine 07/08/18
== END 2024-09-16 15:41 | disposition home or self-care (01) ==
LOC: HO.HMCH 15:08
PROVIDERS: PCP Internal Medicine; Visit Provider Internal Medicine
DX: Z00.00 Encounter for general adult medical examination without abnormal findings (principal); Z98.84 Bariatric surgery status; E66.3 Overweight; E53.8 Deficiency of other specified B group vitamins; K21.9 Gastro-esophageal reflux disease without esophagitis; J45.909 Unspecified asthma, uncomplicated; D25.9 Leiomyoma of uterus, unspecified; E50.9 Vitamin A deficiency, unspecified; E55.9 Vitamin D deficiency, unspecified; J20.9 Acute bronchitis, unspecified

== ENCOUNTER 2024-09-28 14:00 | Outpatient (AMB) | payer OTHER, SELFPAY ==
--- NOTE | 2024-09-28 14:02 | MHC.OFFVIS ---
Vital Signs 09/28/24 14:08 Height 5 ft 3 in Weight 162 lb BMI 28.7 BP 120/58 L Intake Visit Reasons: SCRAP BALLER annual exam/US follow up Intake Note: Patient states spotting for 3 weeks. Utility Bill Collection Clerk: Utility Bill Collection Clerk Present (Susu) Accompanied by: Self / Same As Patient Allergies house dust mite Allergy (Intermediate, Verified 09/28/24 14:09) Rash latex Allergy (Intermediate, Verified 09/28/24 14:09) Rash seafood Allergy (Intermediate, Verified 09/28/24 14:09) Swelling, Hives shellfish derived [SHELLFISH DERIVED] Allergy (Intermediate, Verified 09/28/24 14:09) HIVES,SWELLING pollen extracts Adverse Reaction (Intermediate, Verified 09/28/24 14:09) Sneezing HPI Comments Details: Presenting for annual exam. No complaints. Last Pap/HPV was negative in 10/22 Last Mammogram was BI-RADS 1 in 10/22 Last ultrasound in 09/22 showed the following: Anteverted uterus is 11 cm length. There is a 3.7 x 3.0 x 2.8 cm subserosal fibroid within the right uterine body, slightly increased in size since the prior study ( previously 3.0 x 1.8 x 2.6 cm) Endometrium 6 mm thickness. There is an intrauterine device within the endometrial canal. Right ovary 3.8 x 2.3 x 2.4 cm. Left ovary 4.4 x 1.9 x 2.8 cm. There is a 1.9 x 1.2 x 1.5 cm complex cyst within the right ovary, compatible with a hemorrhagic physiologic cyst. There is a 3.1 x 1.7 x 2.0 cm simple appearing cysts within the left ovary, compatible with a dominant follicle. Normal color Doppler of both ovaries. [facility] Medical History (Updated 09/28/24 @ 14:11 by Everardo Stewart MD) ASCUS with positive high risk HPV cervical Pre-op evaluation Abnormal uterine bleeding (AUB) Right ACL tear Abnormal uterine bleeding Patellar instability of right knee Knee effusion, right Menorrhagia Hip pain, right Knee pain, right Cellulitis Shortness of breath Preoperative examination Asthma Adjustment disorder, unspecified Bilateral nephrolithiasis Vitamin B 12 deficiency Right renal stone Dark yellow-colored urine H. pylori duodenitis Polyarthralgia Constipation Gestational diabetes Talar fracture Iron deficiency anemia Vitamin D deficiency Ulnar neuropathy Carpal tunnel syndrome, right Anxiety and depression Patellar instability of both knees Migraines GERD (gastroesophageal reflux disease) Obesity (BMI 30-39.9) Surgical History Hx of plastic surgery Hx of knee surgery History of esophagogastroduodenoscopy (EGD) History of removal of laparoscopic gastric banding device S/P laparoscopic sleeve gastrectomy Gastric banding status Hx laparoscopic cholecystectomy Hx of laparoscopic gastric banding H/O: Family History Father Diabetes HTN (hypertension) AA (alcohol abuse) Stomach ulcer Cirrhosis Substance abuse Mother No problems noted. Sister Diabetes Substance abuse Bipolar 1 disorder Brother Diabetes Glaucoma Substance abuse Bipolar 1 disorder Daughter Asthma Chronic eczema Maternal Grandmother Myocardial infarct Bipolar 1 disorder Paternal Grandfather Myocardial infarct Paternal Uncle Substance abuse Liver cancer Throat cancer Other FHx: mental illness Social History Household Members: Children Housing: House Are you a primary rn transitional care to a significant other at home: No Do you presently have visiting nurse or other home services: No Alcohol intake: current Alcohol intake frequency: holidays/special occasions only Comment: once a month Patient Tobacco Use Status: Never used Tobacco e-Cigarette/Vaping Use: Never Used Second Hand Smoke Exposure: No service: No Current occupational status: employed 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 Sexual orientation: Straight/Heterosexual Gender identity: Female Cognitive needs: No Hearing needs: No Vision needs: Yes (glasses) Female Reproductive History Menstrual Age of Menarche: 13 control method: progestin IUCD (Mirena) Total pregnancies: 4 Full term: 3 Date of last pap smear: 09/26/23 (negative hpv, negative pap smear) History of abnormal pap smear: No History of STI: No Date of Mammogram: 10/28/23 (bi rad 1) Review of Systems Const All systems reviewed & are unremarkable except as noted in HPI and below Card Reports as per HPI Resp Reports as per HPI GI Reports as per HPI and Reports no additional complaints Reports as per HPI Physical Exam Const General: cooperative, healthy appearing and comfortable Chest Chest palpation & inspection: normal inspection of the chest and normal palpation of entire chest wall Breast/axilla inspection: normal inspection of the breasts and normal inspection of the axillae Breast/axilla palpation: normal palpation of the breasts, normal palpation of the axillae and no axillary lymphadenopathy Resp Effort & Inspection: normal respiratory effort Auscultation: clear to auscultation bilaterally Percussion: percussion normal Cardio Palpation: normal PMI Rate: regular rate Rhythm: regular rhythm Heart sounds: no murmurs and no rubs Peripheral pulses: Peripheral pulses 2+ throughout GI Inspection: Yes normal to inspection Palpation (GI): Soft to palpation, nontender, no guarding, not rigid and No hepatosplenomegaly present Percussion: Yes normal to percussion Auscultation: normal bowel sounds Rectal Exam - Female: deferred General: Yes bladder normal to palpation External Female Exam: No lesion Speculum Exam - Vagina: normal appearance of the vagina, normal palpation, normal vaginal discharge and not erythematous Speculum Exam - Cervix: normal appearance of the cervix and normal palpation Bimanual exam- vagina & uterus: normal bimanual exam, normal palpation, uterine size normal, bladder normal to palpation, consistency normal and normal palpation Bimanual Exam- Adnexa, other: normal adnexae, no masses and no tenderness Assessment & Plan Assessment & Plan (1) Well woman exam: Comment: History of ascus/HPV 16 positive in 09/19 Code(s): Z01.419 - Encounter for gynecological examination (general) (routine) without abnormal findings Category: Medical Plan: Cotesting not indicated this year. Mammogram ordered. Counseled the patient about the recommended dietary allowance of 1000 mg of Calcium & 600 IU of vitamin D. The patient was instructed to perform monthly self-breast exams and to schedule an annual exam in a year; All questions answered and the patient verbalized understanding. Instructed the patient to schedule annual exam in a year (2) Uterine myoma: Code(s): D25.9 - Leiomyoma of uterus, unspecified Category: Medical Plan: Discussed with the patient the findings on pelvic ultrasound & the risk of myosarcoma; in addition reviewed with the patient that malignancy and pre malignancy cannot be ruled out without hysterectomy for pathological evaluation ; furthermore, explained to the patient the limitation of pelvic ultrasound and endometrial biopsy in the setting. Discussed with the patient the options of treatment including expectant management versus hysterectomy; the pros and cons, risks benefits of each approach were discussed with the patient including the fact that in cases of myosarcoma, surgical treatment can lead to early diagnosis and positively affects the prognosis; after further discussion, the patient decided to proceed with expectant management. Will repeat pelvic ultrasound periodically. Instructions given to patient to call in case any of the following occurs: pressure symptoms, abnormal uterine bleeding, pelvic pain; and to schedule a 3-months pelvic ultrasound (order placed) and a follow-up appointment . All questions answered, the patient verbalized understanding and agreed with the plan . (3) Complex ovarian cyst: Code(s): N83.299 - Other ovarian cyst, unspecified side Category: Medical Plan: Discussed with the patient the complex ovarian cyst by ultrasound. Discussed with the patient the Ultrasound findings, the main limitation of transvaginal ultrasonography alone as a diagnostic tool to distinguish benign from malignant masses relates to its lack of specificity and low positive predictive value for cancer. The differential diagnosis discussed with the patient includes the following but not limited to: benign and malignant gynecological and non-gynecological causes. Discussed with the patient options of treatment , including laparoscopy ovarian cystectomy/oophorectomy vs. expectant management with repeat US in repeating pelvic US in 12 weeks from previous US. If the ovarian complex cyst is persistent larger and / or more complex looking, will refer to gynecologic Oncology. All pros, cons, risks and benefits of each approach were discussed with the patient including but not limited to a delay in the diagnosis and treatment of ovarian cancer affecting the prognosis; The patient decided to go ahead with expectant management. Instructions given the patient to schedule a 3 months follow-up ultrasound appointment. All questions were answered & the patient verbalized understanding and agreed with the plan. Orders: Orders MM tomosynthesis screening BI Today Z12.31 - Encounter for screening mammogram for malignant neoplasm of breast US pelvic and transvaginal 3 Months N83.299 - Other ovarian cyst, unspecified side Coding Level of Care Code Est Pt Prev Care 40-64y(59583) Diagnoses Well woman exam Z01.419 Uterine myoma D25.9 Complex ovarian cyst N83.299
[2024-09-28 14:08] VITALS: BP 120/58; BMI 28.7
--- OUTSIDE RECORDS SUMMARY | 2024-09-28 15:51 | XMS_ITS | Clinical Summary ---
Author Organization [facility] Address [address] [place] [address] Care Team Providers Care General Utility Worker Name Role Phone Lashanda Owens MD Primary [...] Brother 2 Glaucoma Diabetes Father HTN, Kidney Armin lure No Known Problems Maternal Grandfather Diabetes [...] RESULTING AGENCY - 07/21/2018 2:41 PM EST [id number] THINPREP PAP AND CELL BLOCK: NEGATIVE FOR [...] Z12.4, Z01.419 ??CB 07/10/18 us Viri Smith [facility] CYTOLOGY ORDERABLES Final R esult HISTORICAL TESTING LAB RESULTING AGENCY from Last 3 Months or Most Recently Relevant to Health Maintenance Care Teams General Utility Worker Relationship Specialty Start Date End Date Lashanda Owens MD PCP - General Internal Medicine 07/08/18
--- OUTSIDE RECORDS SUMMARY | 2024-09-28 15:51 | XMS_ITS | Clinical Summary ---
Author Organization [facility] Address [address] [place] [id number] Phone Care Team Providers Care Flight Control Manager Name Role Phone Unavailable Primary Care Provider [...] of 2 - 13+ 2-dose series) 1995 DTaP,Tdap,and Td Vaccines (1 - Tdap) 2000 Hepatitis B Vaccines (1 of 3 - 19+ 3-dose series) 2001 Influenza Vaccines (#1) 2024 COVID-19 Vaccine (2023-2 5 season) 2024 HIB Vaccines Aged Out [...]
== END 2024-09-28 14:20 | disposition home or self-care (01) ==
LOC: HO.HWS 14:01
PROVIDERS: PCP Internal Medicine; Visit Provider Obstetrics & Gynecology
DX: Z01.419 Encounter for gynecological examination (general) (routine) without abnormal findings (principal); D25.9 Leiomyoma of uterus, unspecified; N83.299 Other ovarian cyst, unspecified side
CPT/HCPCS: 99396; 99459

== ENCOUNTER → 2024-09-28 14:00 | Outpatient (BNVA) | payer OTHER, SELFPAY | PROVIDERS: PCP Internal Medicine; Visit Provider Obstetrics & Gynecology ==

== ENCOUNTER 2024-11-02 15:08 | Outpatient (REF) | payer OTHER, SELFPAY ==
--- OUTSIDE RECORDS SUMMARY | 2024-11-02 16:44 | XMS_ITS | Clinical Summary ---
Author Organization [facility] Address [address] [place] [address] Care Team Providers Care Manager Research Name Role Phone Lashanda Owens MD Primary [...] - 2023-2 5 season) 2024 Influenza Vaccine (Season Ended) 2025 HIB Vaccines Aged Out No longer eligi [...] age to complete this topic Meningococcal B Vaccine Aged Out No l onger eligible based on patient's age to complete [...] RESULTING AGENCY - 07/21/2018 2:41 PM EST [id number] THINPREP PAP AND CELL BLOCK: NEGATIVE FOR SQUAMOUS INTRAEPITHELIAL LESION AND MALIGNANCY . CLUE CELLS ARE PRESENT. HYPERKERATOSIS PUNEET SOTELO(ASCP) (CASE SCREENED 07 14 2018) ALEXI CHRISTOPHER M.D. , PATHOLOGIST (CASE ELECTRONICALLY SIGNED 07 18 2018) RESULT OF APTIMA HIGH RISK HPV ASSAY: HIGH RISK HPV: ??NEGATIVE (SEROTYPES 16,18,31,33,35,39,45,51,52,56,58,59,66,68) COMPLETED ON 2018-07-10 ADEQUACY: SATISFACTORY ENDOCERVICAL/TRANSFORMATION ZONE COMPONENT ABSENT. SOURCE: THINPREP PAP HPV ANY DX: ??REFLEX 16 AND 18, CERVICAL, IMAGED CLINICAL INFORMATION: HPV ANY DIAGNOSIS. Z12.4, Z01.419 ??CB 07/10/18 us Viri Smith [facility] CYTOLOGY ORDERABLES Final R esult HISTORICAL TESTING LAB RESULTING AGENCY from Last 3 Months or Most Recently Relevant to Health Maintenance Care Teams Manager Research Relationship Specialty Start Date End Date Lashanda Owens MD PCP - General Internal Medicine 07/08/18
--- OUTSIDE RECORDS SUMMARY | 2024-11-02 16:44 | XMS_ITS | Clinical Summary ---
Author Organization [facility] Address [address] [place] [id number] Phone Care Team Providers Care Plant And Instrument Engineer Name Role Phone Unavailable Primary Care Provider [...]
== END 2024-11-02 15:09 | disposition home or self-care (01) ==
LOC: HO.MAMMO 15:08
PROVIDERS: Referring Provider Obstetrics & Gynecology; Visit Provider Internal Medicine
DX: Z12.31 Encounter for screening mammogram for malignant neoplasm of breast (principal)
CPT/HCPCS: 77063; 77067

== ENCOUNTER → 2024-11-02 15:15 | Outpatient (BNV) | payer OTHER, SELFPAY | PROVIDERS: Referring Provider Obstetrics & Gynecology; Visit Provider Internal Medicine | DX: Z12.31 Encounter for screening mammogram for malignant neoplasm of breast (principal) | CPT/HCPCS: 77063; 77067 ==

== ENCOUNTER 2024-12-02 10:55 | Outpatient (AMB) | payer OTHER, SELFPAY ==
--- NOTE | 2024-12-02 10:55 | MHC.PC.OV ---
Intake Visit Reasons: Cold Symptoms Director Process Required: No Accompanied by: Self / Same As Patient Allergies house dust mite Allergy (Intermediate, Verified 12/02/24 10:56) Rash latex Allergy (Intermediate, Verified 12/02/24 10:56) Rash seafood Allergy (Intermediate, Verified 12/02/24 10:56) Swelling, Hives shellfish derived [SHELLFISH DERIVED] Allergy (Intermediate, Verified 12/02/24 10:56) HIVES,SWELLING pollen extracts Adverse Reaction (Intermediate, Verified 12/02/24 10:56) Sneezing Medication List - Last Reconciled 12/02/24 by Flores Cesar MD albuterol sulfate 90 mcg/actuation (Ventolin HFA) 2 puffs inhalation Q6H PRN albuterol sulfate 2.5 mg (3 mL) inhalation QID PRN calcium citrate 1,000 mg PO DAILY cetirizine (Zyrtec) 10 mg PO DAILY PRN doxycycline hyclate 100 mg PO BID epinephrine 1 IM DIRECTED levonorgestrel (Mirena) intrauterine gjoqoljadxli-euq-hgip-FA-vit K 45 mg iron- 800 mcg-120 mcg (Bariatric Multivitamins) 1 cap PO DAILY nebulizers (Aeroneb Go Nebulizer) As directed omeprazole 20 mg PO DAILY sennosides (senna) 17.2 mg (2 x 8.6 mg) PO BEDTIME PRN 90 days Tobacco use date assessed: 12/02/24 Dental Screening Dental Screen Date: 12/02/24 Did you have a dental visit in the last 12 months?: Yes Did you have a dental problem in the last 6 months where you did not have access to dental care?: No Was dental information given to patient?: Patient has dentist HPI Cold Symptoms HPI Details leftMessage on the phone 13:29 was on vacation, 5 daysa ago cough, mylagia, fever. [facility] Medical History (Updated 12/02/24 @ 13:31 by Flores Cesar MD) ASCUS with positive high risk HPV cervical Pre-op evaluation Abnormal uterine bleeding (AUB) Right ACL tear Abnormal uterine bleeding Patellar instability of right knee Knee effusion, right Menorrhagia Hip pain, right Knee pain, right Cellulitis Shortness of breath Preoperative examination Asthma Adjustment disorder, unspecified Bilateral nephrolithiasis Vitamin B 12 deficiency Right renal stone Dark yellow-colored urine H. pylori duodenitis Polyarthralgia Constipation Gestational diabetes Talar fracture Iron deficiency anemia Vitamin D deficiency Ulnar neuropathy Carpal tunnel syndrome, right Anxiety and depression Patellar instability of both knees Migraines GERD (gastroesophageal reflux disease) Obesity (BMI 30-39.9) Surgical History Hx of plastic surgery Hx of knee surgery History of esophagogastroduodenoscopy (EGD) History of removal of laparoscopic gastric banding device S/P laparoscopic sleeve gastrectomy Gastric banding status Hx laparoscopic cholecystectomy Hx of laparoscopic gastric banding H/O: Family History Father Diabetes HTN (hypertension) AA (alcohol abuse) Stomach ulcer Cirrhosis Substance abuse Mother No problems noted. Sister Diabetes Substance abuse Bipolar 1 disorder Brother Diabetes Glaucoma Substance abuse Bipolar 1 disorder Daughter Asthma Chronic eczema Maternal Grandmother Myocardial infarct Bipolar 1 disorder Paternal Grandfather Myocardial infarct Paternal Uncle Substance abuse Liver cancer Throat cancer Other FHx: mental illness Social History Household Members: Children Housing: House Are you a primary care administrative tech to a significant other at home: No Do you presently have visiting nurse or other home services: No Alcohol intake: current Alcohol intake frequency: holidays/special occasions only Comment: once a month Patient Tobacco Use Status: Never used Tobacco e-Cigarette/Vaping Use: Never Used Second Hand Smoke Exposure: No service: No Current occupational status: employed 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 1. Little interest or pleasure in doing things: not at all 2. Feeling down, depressed, or hopeless: not at all 3. Trouble falling or staying asleep, or sleeping too much: not at all 4. Feeling tired or having little energy: not at all 5. Poor appetite or overeating: not at all 6. Feeling bad about yourself - or that you are a failure or have let yourself or your family down: not at all 7. Trouble concentrating on things, such as reading the newspaper or watching television: not at all 8. Moving or speaking so slowly that other people could have noticed. Or the opposite - being so fidgety or restless that you have been moving around a lot more than usual: not at all 9. Thoughts that you would be better off or of hurting yourself in some way: not at all Total score: 0 Depression Screening Interpretation: Negative Depression Screening Done: Yes Source: Developed by Drs. Stephen Devlin, Gabriela Jenkins, Reddy Garcia and colleagues, with an educational beto from [employer]. Thrive Questionnaire Date Thrive assessed: 12/02/24 I am a: Patient What is your living situation today?: I have a steady place to live Within the past 12 months, did the food you bought not last and you didn't have the money to get more?: Often true Within the past 12 months, did you worry whether your food would run out before you got money to buy more?: Often true Do you have trouble paying for medicines?: No Do you have trouble getting transportation to medical appointments?: No Do you have trouble paying your heating and electricity bill?: No Do you have trouble taking care of your child, family member or friend?: No Do you have trouble with day-to-day activities such as bathing, preparing meals, shopping, managing finances, etc.?: No Are you currently unemployed and looking for a job?: No Are you interested in more education?: No Please select the resources that you would like help with: Food Currently or been in a relationship where the following occur: No concerns reported THRIVE Score: 2 AUDIT C Alcohol Use Questionnaire (AUDIT-C) 1. How often do you have a drink containing alcohol?: Never 3. How often do you have six or more drinks on one occasion?: Never Total Score: 0 KINZA-7 AMB Questionnaire KINZA-7 Date KINZA - 7 assessed: 12/02/24 Feeling nervous, anxious, or on edge: 0 = Not at all Not being able to stop or control worryin = Not at all Worrying too much about different things: 0 = Not at all Trouble relaxin = Several days Being so restless that it is hard to sit still: 1 = Several days Becoming easily annoyed or irritable: 0 = Not at all Feeling afraid as if something awful might happen: 0 = Not at all Total KINZA-7 score (0-4 normal; 5-9 mild; 10-14 moderate; 15-21 severe): 2 Source: Developed by Drs. Stephen Devlin, Gabriela Jenkins, Reddy Garcia and colleagues, with an educational beto from [employer]. Physical exam (Primary Care) Tobacco/Smoking Status: Tobacco use Status Tobacco use date assessed 12/02/24 12/02/24 10:57 Patient Tobacco Use Status Never used Tobacco 12/02/24 10:57 e-Cigarette/Vaping Use Never Used 12/02/24 10:57 PHQ-9: PHQ-9 Score PHQ-9: Total score 0 12/02/24 13:30 Depression Screening Interpretation: Negative Thrive Assessment: Date of Thrive Assessment Date Thrive assessed 12/02/24 12/02/24 10:57 Currently or been in a relationship where the following occur: No concerns reported Telehealth Telehealth Telehealth Platform: Telephone Location of provider rendering services: practice address Location of patient: address on file Patient Identification confirmed using: Name, : Yes Telehealth method: video (Iphone) Patient verbally consented to treatment: Yes Patient verbally consented to billing insurance company: Yes Patient informed of any privacy concerns related to visit: Yes Minutes spent on Phone/Video with Pt.: 15 Coding Level of Care Code Tele Est Pt Level 3 (52588) Diagnoses Cough R05.9 Assessment & Plan Assessment & Plan (1) Cough: Code(s): R05.9 - Cough, unspecified Category: Medical Plan History of Present Illness The patient is a 44-year-old female presenting with upper respiratory symptoms, including persistent coughing, body aches, and wheezing, which started five days ago following exposure to a sick family member. The ineffective response to asthma inhaler therapy has raised concern. She was exposed to influenza, confirmed by a positive test in a family member. She has not reported recent fevers but discusses body ache and cough without effective mucus clearance. The absence of home nebulizer therapy poses a challenge in managing her asthma symptoms. Review of Systems - Respiratory: Reports cough, wheezing; Denies effectiveness of inhaler - General: Reports body aches - Other Systems: Not discussed Plan Plans include initiating doxycycline therapy while awaiting influenza testing through lab evaluation due to recent exposure. I prescribed albuterol for nebulizer therapy to manage asthma symptoms exacerbated by current illness. The importance of hydration and monitoring symptoms, with instructions given to complete the influenza testing promptly, was discussed. Patient was informed and verbally consented to the use of an ambient scribe for clinic note documentation during this visit. Discussion Notes I advised the patient on the importance of confirming her potential influenza with definitive testing, given her recent exposure. We discussed the efficacy of antibiotics for bacterial infections but not for viral infections like influenza, and the patient agreed to proceed with influenza testing as soon as possible. I explained why albuterol nebulization would help her wheezing more effectively than her current inhaler. I ensured the patient understood how to proceed with prescriptions and the necessity of maintaining adequate hydration. Follow-up plans based on test results were discussed, emphasizing the need for immediate attention if her respiratory symptoms worsened. Patient Instructions - Take the prescribed doxycycline as directed. - Complete influenza testing as soon as possible. - Begin albuterol nebulizer treatments as prescribed. - Drink plenty of water to stay hydrated. - Monitor symptoms and get in touch if worsening, especially breathing issues. - Visit the medical supply store to obtain a nebulizer. Orders: Orders SARS-CoV2/FLU/RSV Today R05.9 - Cough, unspecified Medications: New nebulizers (Aeroneb Go Nebulizer) As directed 1 ea 0RF J45.909 - Unspecified asthma, uncomplicated albuterol sulfate 2.5 mg (3 mL) inhalation QID PRN 90 mL 0RF shortness of breath or wheezing J45.909 - Unspecified asthma, uncomplicated doxycycline hyclate 100 mg PO BID 14 caps 0RF R05.9 - Cough, unspecified Discontinued azithromycin (Zithromax) Discontinued Reason: Patient Completed Course For 250 mg dose pack: take 500 mg today (day 1), then 250 mg for 4 days (days 2-5) PO 6 tabs 0RF J20.9 - Acute bronchitis, unspecified
--- OUTSIDE RECORDS SUMMARY | 2024-12-02 11:51 | XMS_ITS | Encounter Summary ---
Author Organization [facility] Address [address] [place] [address] Care Team Providers Care Silo Operator Name Role Phone Lashanda Owens MD Primary Care Provider Unavail able Encounter Details Date Type Department Care Team Description 10/02/2019 Refill Adult Medicine [address] [address] Irene Stover PA Social History Tobacco Use Types Packs/Day Years Used Date Smoking Tobacco: Never Smokeless Tobacco: Never Alcohol Use Standard Drinks/Week Comments Yes 0 (1 standard drink = 0.6 oz pur e alcohol) occasional 1 x month Sex Assigned at Date Recorded Not on file documented as of this encounter Miscellaneous Notes * Telephone Encounter - Alicja Coffman - 10/02/2019 3:10 PM EDT Lab Results Component Value Date NA 143 09/06/2017 K 4.8 09/06/2017 CO2 22.2 09/06/2017 CL 106 09/06/2017 BUN 9 09/06/2017 CREAT 0.7 09/06/2017 CA 9.3 09/06/2017 GFR > 60 09/06/2017 documented in this encounter Plan of Treatment Not on file documented as of this encounter Visit Diagnoses Not on filedocumented in this encounter Care Teams Silo Operator Relationship Specialty Start Date End Date Lashanda Owens MD PCP - General Internal Medicine 07/08/18 documented as of this encounter
== END 2024-12-02 16:31 | disposition home or self-care (01) ==
LOC: HO.HMCH 10:55
PROVIDERS: PCP Internal Medicine; Visit Provider Internal Medicine
DX: R05.9 Cough, unspecified (principal)

== ENCOUNTER → 2024-12-02 10:55 | Outpatient (BNVA) | payer OTHER, SELFPAY | PROVIDERS: PCP Internal Medicine; Visit Provider Internal Medicine | DX: Z13.89 Encounter for screening for other disorder (principal) ==

== ENCOUNTER 2024-12-03 12:44 | Outpatient (REF) | payer OTHER, SELFPAY ==
[2024-12-03 13:40] LABS: Influenza A PCR NEGATIVE (Negative); Influenza B PCR POSITIVE (Negative); Resp Syncy Virus RNA Qual PCR NEGATIVE (Negative); SARS COV2 PCR INHOUSE NEGATIVE (Negative)
== END 2024-12-03 12:45 | disposition home or self-care (01) ==
LOC: HO.LAB 12:44
PROVIDERS: PCP Internal Medicine; Visit Provider Internal Medicine
DX: R05.9 Cough, unspecified (principal)
CPT/HCPCS: 0241U

== ENCOUNTER 2024-12-28 14:09 | Outpatient (REF) | payer OTHER, SELFPAY ==
--- NOTE | ~2024-12-28 | US_ITS ---
EXAMINATION: US PELVIS TRANSABDOMINAL AND TRANSVAGINAL HISTORY: N83.299 - Other ovarian cyst, unspecified side COMPARISON: Comparison is made with the prior examination dated 08/31/2024. TECHNIQUE: Transabdominal and endovaginal real-time 2D yu-scale ultrasound was performed. FINDINGS: Uterus: The uterus is normal in size, measuring 10.8 x 4.6 x 5.2 cm. Myometrium has a normal echotexture. Again seen is a right-sided fibroid measuring 2.6 x 1 2.6 x 2.6 cm (previously 3.7 x 3.0 x 2.8 cm). There is a 1.4 x 1.3 x 1.4 cm anterior fibroid which was not identified previously. Endometrium: The endometrial stripe measures 4 mm in thickness. An IUD is noted in the appropriate position in the endometrial canal. There are nabothian cysts in the cervix. Right ovary: The right ovary measures 2.2 x 1.7 x 1.7 cm. The right ovary is normal in size and echotexture. Left ovary: The left ovary measures 2.8 x 1.2 x 1.8 cm. The left ovary is normal in size and echotexture. Pelvic fluid: none. US/US pelvic and transvaginal IMPRESSION: Fibroid uterus as described. IUD in appropriate position in the endometrial canal. Electronically signed by: Stephen Lozano MD 12/28/2024 03:20 PM EDT
--- OUTSIDE RECORDS SUMMARY | 2024-12-28 14:43 | XMS_ITS | Clinical Summary ---
Author Organization [facility] Address [address] [place] [address] Phone Care Team Providers Care City Marshal Name Role Phone Unavailable Primary Care Provider [...]
--- OUTSIDE RECORDS SUMMARY | 2024-12-28 14:43 | XMS_ITS | Encounter Summary ---
Author Organization [facility] Address [address] [place] [address] Care Team Providers Care Locomotive Pipe Fitter Name Role Phone Lashanda Owens MD Primary Care Provider Unavail able Encounter Details Date Type Department Care Team Description 10/02/2019 Refill Adult Medicine [address] [address] Irene Stover PA Social History Tobacco Use [...] on filedocumented in this encounter Care Teams Locomotive Pipe Fitter Relationship Specialty Start Date End Date Lashanda Owens MD PCP - General Internal Medicine 07/08/18 documented as of this encounter
--- OUTSIDE RECORDS SUMMARY | 2024-12-28 14:43 | XMS_ITS | Clinical Summary ---
Author Organization [facility] Address [address] [place] [address] Care Team Providers Care Greenhouse Assistant Name Role Phone Lashanda Owens MD Primary [...] RESULTING AGENCY - 07/21/2018 2:41 PM EST [id number] THINPREP PAP AND CELL BLOCK: NEGATIVE FOR SQUAMOUS INTRAEPITHELIAL LESION AND MALIGNANCY . CLUE CELLS ARE PRESENT. HYPERKERATOSIS PUNEET SOTELO(ASCP) (CASE SCREENED 07 14 2018) ALEXI CHRISTOPHER M.D. , PATHOLOGIST (CASE ELECTRONICALLY SIGNED 07 18 2018) RESULT OF APTIMA HIGH RISK HPV ASSAY: HIGH RISK HPV: NEGATIVE (SEROTYPES 16,18,31,33,35,39,45,51,52,56,58,59,66,68) COMPLETED ON 2018-07-10 ADEQUACY: SATISFACTORY ENDOCERVICAL/TRANSFORMATION ZONE COMPONENT ABSENT. SOURCE: THINPREP PAP HPV ANY DX: REFLEX 16 AND 18, CERVICAL, IMAGED CLINICAL INFORMATION: HPV ANY DIAGNOSIS. Z12.4, Z01.419 CB 07/10/18 us Viri Smith [facility] LAB CYTOLOGY ORDERABLES Final R esult HISTORICAL TESTING LAB RESULTING AGENCY from Last 3 Months or Most Recently Relevant to Health Maintenance Care Teams Greenhouse Assistant Relationship Specialty Start Date End Date Lashanda Owens MD PCP - General Internal Medicine 07/08/18
== END 2024-12-28 14:10 | disposition home or self-care (01) ==
LOC: HO.US 14:09
PROVIDERS: PCP Internal Medicine; Visit Provider Obstetrics & Gynecology
DX: N83.299 Other ovarian cyst, unspecified side (principal)
CPT/HCPCS: 76830; 76856

== ENCOUNTER → 2024-12-28 14:10 | Outpatient (BNV) | payer OTHER, SELFPAY | PROVIDERS: PCP Internal Medicine; Visit Provider Radiology Diagnostic Radiology | DX: D25.9 Leiomyoma of uterus, unspecified (principal) | CPT/HCPCS: 76830; 76856 ==

== ENCOUNTER 2024-12-29 11:28 | Outpatient (AMB) | payer OTHER, SELFPAY ==
--- NOTE | 2024-12-29 11:29 | A.OFFVIS_ITS ---
Intake Visit Reasons: ultrasound results Allergies house dust mite Allergy (Intermediate, Verified 12/02/24 10:56) Rash latex Allergy (Intermediate, Verified 12/02/24 10:56) Rash seafood Allergy (Intermediate, Verified 12/02/24 10:56) Swelling, Hives shellfish derived (SHELLFISH DERIVED) Allergy (Intermediate, Verified 12/02/24 10:56) HIVES,SWELLING pollen extracts Adverse Reaction (Intermediate, Verified 12/02/24 10:56) Sneezing HPI Comments Details: The patient scheduled a telehealth visit for follow-up regarding complex ovarian cyst and uterine myoma identified on previous ultrasound done in 09/22. Ultrasound done recently showed the following: Uterus: The uterus is normal in size, measuring 10.8 x 4.6 x 5.2 cm. Myometrium has a normal echotexture. Again seen is a right-sided fibroid measuring 2.6 x 1 2.6 x 2.6 cm (previously 3.7 x 3.0 x 2.8 cm). There is a 1.4 x 1.3 x 1.4 cm anterior fibroid which was not identified previously. Endometrium: The endometrial stripe measures 4 mm in thickness. An IUD is noted in the appropriate position in the endometrial canal. There are nabothian cysts in the cervix. Right ovary: The right ovary measures 2.2 x 1.7 x 1.7 cm. The right ovary is normal in size and echotexture. Left ovary: The left ovary measures 2.8 x 1.2 x 1.8 cm. The left ovary is normal in size and echotexture. Pelvic fluid: none. [facility] Medical History ASCUS with positive high risk HPV cervical Pre-op evaluation Abnormal uterine bleeding (AUB) Right ACL tear Abnormal uterine bleeding Patellar instability of right knee Knee effusion, right Menorrhagia Hip pain, right Knee pain, right Cellulitis Shortness of breath Preoperative examination Asthma Adjustment disorder, unspecified Bilateral nephrolithiasis Vitamin B 12 deficiency Right renal stone Dark yellow-colored urine H. pylori duodenitis Polyarthralgia Constipation Gestational diabetes Talar fracture Iron deficiency anemia Vitamin D deficiency Ulnar neuropathy Carpal tunnel syndrome, right Anxiety and depression Patellar instability of both knees Migraines GERD (gastroesophageal reflux disease) Obesity (BMI 30-39.9) Surgical History Hx of plastic surgery Hx of knee surgery History of esophagogastroduodenoscopy (EGD) History of removal of laparoscopic gastric banding device S/P laparoscopic sleeve gastrectomy Gastric banding status Hx laparoscopic cholecystectomy Hx of laparoscopic gastric banding H/O: Family History Father Diabetes HTN (hypertension) AA (alcohol abuse) Stomach ulcer Cirrhosis Substance abuse Mother No problems noted. Sister Diabetes Substance abuse Bipolar 1 disorder Brother Diabetes Glaucoma Substance abuse Bipolar 1 disorder Daughter Asthma Chronic eczema Maternal Grandmother Myocardial infarct Bipolar 1 disorder Paternal Grandfather Myocardial infarct Paternal Uncle Substance abuse Liver cancer Throat cancer Other FHx: mental illness Social History Household Members: Children Housing: House Are you a primary resident care aide to a significant other at home: No Do you presently have visiting nurse or other home services: No Alcohol intake: current Alcohol intake frequency: holidays/special occasions only Comment: once a month Patient Tobacco Use Status: Never used Tobacco e-Cigarette/Vaping Use: Never Used Second Hand Smoke Exposure: No service: No Current occupational status: employed 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 Sexual orientation: Straight/Heterosexual Gender identity: Female Cognitive needs: No Hearing needs: No Vision needs: Yes (glasses) Female Reproductive History Menstrual Age of Menarche: 13 Review of Systems Const All systems reviewed & are unremarkable except as noted in HPI and below Reports as per HPI and Reports no additional complaints GI Reports no additional complaints Reports no additional complaints Telehealth Telehealth Telehealth Platform: Telephone Location of provider rendering services: practice address Location of patient: address on file Patient Identification confirmed using: Name, : Yes Telehealth method: video Patient verbally consented to treatment: Yes Patient verbally consented to billing insurance company: Yes Patient informed of any privacy concerns related to visit: Yes Assessment & Plan Assessment & Plan (1) Complex ovarian cyst: Comment: Resolved Code(s): N83.299 - Other ovarian cyst, unspecified side Category: Medical Plan: Discussed with the patient ultrasound findings showing the previously identified complex cyst has resolved. The patient was instructed to call if symptoms recur. All questions were answered the patient verbalized understanding. (2) Uterine myoma: Code(s): D25.9 - Leiomyoma of uterus, unspecified Category: Medical Plan: Discussed with the patient the findings on pelvic ultrasound & the risk of myosarcoma; in addition reviewed with the patient that malignancy and pre malignancy cannot be ruled out without hysterectomy for pathological evaluation ; furthermore, explained to the patient the limitation of pelvic ultrasound and endometrial biopsy in the setting. Discussed with the patient the options of treatment including expectant management versus hysterectomy; the pros and cons, risks benefits of each approach were discussed with the patient including the fact that in cases of myosarcoma, surgical treatment can lead to early diagnosis and positively affects the prognosis; after further discussion, the patient decided to proceed with expectant management. Will repeat pelvic ultrasound periodically. Instructions given to patient to call in case any of the following occurs: pressure symptoms, abnormal uterine bleeding, pelvic pain; and to schedule a 12 months pelvic ultrasound (order placed) and a follow-up appointment . All questions answered, the patient verbalized understanding and agreed with the plan . Orders: Orders US pelvic and transvaginal 12 Weeks D25.9 - Leiomyoma of uterus, unspecified Coding Level of Care Code Est Pt Level 3 (31044) Diagnoses Complex ovarian cyst N83.299 Uterine myoma D25.9
--- OUTSIDE RECORDS SUMMARY | 2024-12-29 12:42 | XMS_ITS | Encounter Summary ---
Author Organization [facility] Address [address] [place] [address] Care Team Providers Care Rail Splitter Name Role Phone Lashanda Owens MD Primary Care Provider Unavail able Encounter Details Date Type Department Care Team Description 10/02/2019 Refill Adult Medicine [address] [address] Irene Stover PA Social History Tobacco Use [...] on filedocumented in this encounter Care Teams Rail Splitter Relationship Specialty Start Date End Date Lashanda Owens MD PCP - General Internal Medicine 07/08/18 documented as of this encounter
--- OUTSIDE RECORDS SUMMARY | 2024-12-29 12:42 | XMS_ITS | Clinical Summary ---
Author Organization [facility] Address [address] [place] [id number] Phone Care Team Providers Care Dietitian Helper Name Role Phone Unavailable Primary Care Provider [...] of 3 - 19+ 3-dose series) 2001 COVID-19 Vaccine ( - 2023-2 5 season) 2024 Influenza Vaccines (#1) 2025 HIB Vaccines Aged Out No longer [...]
--- OUTSIDE RECORDS SUMMARY | 2024-12-29 12:42 | XMS_ITS | Clinical Summary ---
Author Organization [facility] Address [address] [place] [address] Care Team Providers Care Workforce Services Representative Name Role Phone Lashanda Owens MD Primary [...] RESULTING AGENCY - 07/21/2018 2:41 PM EST [id number] THINPREP PAP AND CELL BLOCK: NEGATIVE FOR [...] Z12.4, Z01.419 CB 07/10/18 us Viri Smith [facility] LAB CYTOLOGY ORDERABLES Final R esult HISTORICAL TESTING LAB RESULTING AGENCY from Last 3 Months or Most Recently Relevant to Health Maintenance Care Teams Workforce Services Representative Relationship Specialty Start Date End Date Lashanda Owens MD PCP - General Internal Medicine 07/08/18
== END 2024-12-29 12:57 | disposition home or self-care (01) ==
LOC: HO.HWS 11:28
PROVIDERS: PCP Internal Medicine; Visit Provider Obstetrics & Gynecology
DX: N83.299 Other ovarian cyst, unspecified side (principal); D25.9 Leiomyoma of uterus, unspecified
CPT/HCPCS: 99213

== ENCOUNTER 2025-01-07 15:11 | Outpatient (AMB) | payer OTHER, SELFPAY ==
--- OUTSIDE RECORDS SUMMARY | 2025-01-07 15:14 | XMS_ITS | Clinical Summary ---
Author Organization [facility] Address [address] [place] [address] Phone Care Team Providers Care Evp Chief Exploration Officer Name Role Phone Unavailable Primary Care Provider [...]
--- OUTSIDE RECORDS SUMMARY | 2025-01-07 15:14 | XMS_ITS | Clinical Summary ---
Author Organization [facility] Address [address] [place] [address] Care Team Providers Care Case Assistant Name Role Phone Lashanda Owens MD [...] 2023-2 5 season) 2024 Influenza Vaccine (#1) 2025 HIB Vaccines Aged Out No [...] 5 Years) and At-Risk Patients (6 to 49 Years) Aged Out No longer eligi ble [...] RESULTING AGENCY - 07/21/2018 2:41 PM EST [id number] THINPREP PAP AND CELL BLOCK: NEGATIVE FOR [...] Z12.4, Z01.419 CB 07/10/18 us Viri Smith [facility] LAB CYTOLOGY ORDERABLES Final R esult HISTORICAL TESTING LAB RESULTING AGENCY from Last 3 Months or Most Recently Relevant to Health Maintenance Care Teams Case Assistant Relationship Specialty Start Date End Date Lashanda Owens MD PCP - General Internal Medicine 07/08/18
--- NOTE | 2025-01-07 15:15 | A.OFFVIS_ITS ---
VS Expanded 01/07/25 15:31 BP 114/69 Blood Pressure Location Rt brachial Blood Pressure Position Sitting Pulse 57 Pulse Source Pulse Oximeter Temp 96.8 F Temperature Source Temporal Artery Scan Pulse Oximetry 97 Oxygen Delivery Method Room Air Height 5 ft 3 in Weight 160 lb 6.4 oz BMI 28.4 Body Fat % 29.2 Body Fat Mass 46.8 Fat Free Mass 113.6 Visceral Fat Rating 5.0 Body Water % 50.6 Body Water Mass 81.2 Muscle Mass/Score 107.8 Basal Metabolic Rate/Score 1,525 Intake Visit Reasons: (OV) LSG 12/28/20 Practice Administrator Required: No Allergies house dust mite Allergy (Intermediate, Verified 01/07/25 15:26) Rash latex Allergy (Intermediate, Verified 01/07/25 15:26) Rash seafood Allergy (Intermediate, Verified 01/07/25 15:26) Swelling, Hives shellfish derived (SHELLFISH DERIVED) Allergy (Intermediate, Verified 01/07/25 15:26) HIVES,SWELLING pollen extracts Adverse Reaction (Intermediate, Verified 01/07/25 15:26) Sneezing Medication List - Last Reconciled 01/07/25 by ONESIMO Lockwood albuterol sulfate 90 mcg/actuation (Ventolin HFA) 2 puffs inhalation Q6H PRN albuterol sulfate 2.5 mg (3 mL) inhalation QID PRN calcium citrate 1,000 mg PO DAILY cetirizine (Zyrtec) 10 mg PO DAILY PRN epinephrine 1 IM DIRECTED levonorgestrel (Mirena) intrauterine fhlyrnhbiblh-yaq-povt-FA-vit K 45 mg iron- 800 mcg-120 mcg (Bariatric Multivitamins) 1 cap PO DAILY nebulizers (Aeroneb Go Nebulizer) As directed omeprazole 20 mg PO DAILY oseltamivir (Tamiflu) 75 mg PO BID 5 days sennosides (senna) 17.2 mg (2 x 8.6 mg) PO BEDTIME PRN 90 days HPI Comments Details: This?a?44?yo female who is s/p LSG without hiatal hernia repair on?12/28/[address] Alonso. Presents for 4 year post op visit. Weight today is 160.4 pounds, with a BMI of 28.4.? There has been a 51.6 pound weight loss,(initial weight 212 pounds) since starting the program on 08/08/18 reflecting a 24.3% total body weight loss and a weight loss of 47.8 pounds since surgery (operative weight 208.2 pounds) reflecting a 22.9% TBWL since surgery.? No complaints of nausea, emesis, abdominal pain or reflux. Reports lower abdominal discomfort assoc w constipation. BM daily. Takes Bariatric fusion mvi and calcium She had panniculectomy, liposuction and BBL in [facility] on 04/25/22.? She has maintained 150-155 pounds over the last year. SHe has not had a menstrual cycle in 2 monhts and denies . Has IUD and her grinding wheel facer knows about it. Present meal plan includes: 930-1100 am fairlife shake (26 gm) 4 pm small meal 4 forks protein and 3 forks veg Drinkin-64 oz water daily Exercise routine includes: daily outdoor walking, 300-400 calories ccardio workout 2 days per week Any post op complications: none MAHENDRA: never DM: never HTN: never Hyperlipidemia: never GERD:?0-5 scale ??0 = no symptoms ??1 = symptoms noticeable but not bothersome 2 =symptoms bothersome but not daily ? 3 = symptoms bothersome and daily 4 = symptoms affect daily activities 5 = symptoms are incapacitating, unable to do daily activities ? How bad is the heartburn: 0 ? Heartburn while lying down: 0 ? Heartburn when standing up: 0 ? Heartburn after meals: 0 ? Does heartburn change your diet: 0 ? Does heartburn wake you up from sleep: 0 ? Do you have difficulty swallowin ? Do you have pain with swallowin ? If you take medicine for your reflux, does this affect your daily life: 0 Satisfaction with present condition - satisfied or not satisfied: satisfied [facility] Medical History ASCUS with positive high risk HPV cervical Pre-op evaluation Abnormal uterine bleeding (AUB) Right ACL tear Abnormal uterine bleeding Patellar instability of right knee Knee effusion, right Menorrhagia Hip pain, right Knee pain, right Cellulitis Shortness of breath Preoperative examination Asthma Adjustment disorder, unspecified Bilateral nephrolithiasis Vitamin B 12 deficiency Right renal stone Dark yellow-colored urine H. pylori duodenitis Polyarthralgia Constipation Gestational diabetes Talar fracture Iron deficiency anemia Vitamin D deficiency Ulnar neuropathy Carpal tunnel syndrome, right Anxiety and depression Patellar instability of both knees Migraines GERD (gastroesophageal reflux disease) Obesity (BMI 30-39.9) Surgical History Hx of plastic surgery Hx of knee surgery History of esophagogastroduodenoscopy (EGD) History of removal of laparoscopic gastric banding device S/P laparoscopic sleeve gastrectomy Gastric banding status Hx laparoscopic cholecystectomy Hx of laparoscopic gastric banding H/O: Family History Father Diabetes HTN (hypertension) AA (alcohol abuse) Stomach ulcer Cirrhosis Substance abuse Mother No problems noted. Sister Diabetes Substance abuse Bipolar 1 disorder Brother Diabetes Glaucoma Substance abuse Bipolar 1 disorder Daughter Asthma Chronic eczema Maternal Grandmother Myocardial infarct Bipolar 1 disorder Paternal Grandfather Myocardial infarct Paternal Uncle Substance abuse Liver cancer Throat cancer Other FHx: mental illness Social History Household Members: Children Housing: House Are you a primary healthcare administrator to a significant other at home: No Do you presently have visiting nurse or other home services: No Alcohol intake: current Alcohol intake frequency: holidays/special occasions only Comment: once a month Patient Tobacco Use Status: Never used Tobacco e-Cigarette/Vaping Use: Never Used Second Hand Smoke Exposure: No service: No Current occupational status: employed 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 Alonso. Had panniculectomy, liposuction and BBL in [facility] in 04/25/2022 Code(s): Z98.84 - Bariatric surgery status Category: Surgical Plan: Check yearly follow-up labs Encouraged to track calories while exercising with a goal of burning 300 per day or 2000 per week States she is only having 1 shake and 1 meal per day, encouraged to shakes and 1 meal pe day She states she does better with a meal at the end of the day and so therefore would recommend: Fair life 26 g shake 9-11 Half fair life 26 g shake 1-3 meal at 4 pm 4 forks protein and 4 forks veg rtc 1 year Orders: Orders Hemoglobin A1c Today E50.9 - Vitamin A deficiency, unspecified, E53.8 - Deficiency of other specified B group vitamins, E55.9 - Vitamin D deficiency, unspecified, Z98.84 - Bariatric surgery status Complete Blood Count Auto Diff Today E50.9 - Vitamin A deficiency, unspecified, E53.8 - Deficiency of other specified B group vitamins, E55.9 - Vitamin D deficiency, unspecified, Z98.84 - Bariatric surgery status IRON PROFILE Today E50.9 - Vitamin A deficiency, unspecified, E53.8 - Deficiency of other specified B group vitamins, E55.9 - Vitamin D deficiency, unspecified, Z98.84 - Bariatric surgery status Vitamin B12 and Folate Today E50.9 - Vitamin A deficiency, unspecified, E53.8 - Deficiency of other specified B group vitamins, E55.9 - Vitamin D deficiency, unspecified, Z98.84 - Bariatric surgery status Vitamin B1 Today E50.9 - Vitamin A deficiency, unspecified, E53.8 - Deficiency of other specified B group vitamins, E55.9 - Vitamin D deficiency, unspecified, Z98.84 - Bariatric surgery status TSH reflex Free T4 Today E50.9 - Vitamin A deficiency, unspecified, E53.8 - Deficiency of other specified B group vitamins, E55.9 - Vitamin D deficiency, unspecified, Z98.84 - Bariatric surgery status Insulin Today E50.9 - Vitamin A deficiency, unspecified, E53.8 - Deficiency of other specified B group vitamins, E55.9 - Vitamin D deficiency, unspecified, Z98.84 - Bariatric surgery status Lipid Panel Today E50.9 - Vitamin A deficiency, unspecified, E53.8 - Deficiency of other specified B group vitamins, E55.9 - Vitamin D deficiency, unspecified, Z98.84 - Bariatric surgery status Comprehensive Met. Panel Today E50.9 - Vitamin A deficiency, unspecified, E53.8 - Deficiency of other specified B group vitamins, E55.9 - Vitamin D deficiency, unspecified, Z98.84 - Bariatric surgery status Zinc Today E50.9 - Vitamin A deficiency, unspecified, E53.8 - Deficiency of other specified B group vitamins, E55.9 - Vitamin D deficiency, unspecified, Z98.84 - Bariatric surgery status C Reactive Protein Today E50.9 - Vitamin A deficiency, unspecified, E53.8 - Deficiency of other specified B group vitamins, E55.9 - Vitamin D deficiency, unspecified, Z98.84 - Bariatric surgery status Vitamin A Today E50.9 - Vitamin A deficiency, unspecified, E53.8 - Deficiency of other specified B group vitamins, E55.9 - Vitamin D deficiency, unspecified, Z98.84 - Bariatric surgery status Ferritin Today E50.9 - Vitamin A deficiency, unspecified, E53.8 - Deficiency of other specified B group vitamins, E55.9 - Vitamin D deficiency, unspecified, Z98.84 - Bariatric surgery status Vitamin D 25-OH Total Today E50.9 - Vitamin A deficiency, unspecified, E53.8 - Deficiency of other specified B group vitamins, E55.9 - Vitamin D deficiency, unspecified, Z98.84 - Bariatric surgery status Referrals Behavioral Health Referral E50.9 - Vitamin A deficiency, unspecified, E53.8 - Deficiency of other specified B group vitamins, E55.9 - Vitamin D deficiency, unspecified, Z98.84 - Bariatric surgery status
[2025-01-07 15:31] VITALS: BP 114/69; PULSE 57; TEMP 36; O2SAT 97; BMI 28.4
== END 2025-01-07 15:47 | disposition home or self-care (01) ==
LOC: HO.HBS 15:12
PROVIDERS: PCP Internal Medicine; Visit Provider Physician Assistant Surgical
DX: E66.3 Overweight (principal); Z68.28 Body mass index [BMI] 28.0-28.9, adult; Z90.3 Acquired absence of stomach [part of]; Z98.84 Bariatric surgery status
CPT/HCPCS: 99214

== ENCOUNTER 2025-03-23 15:04 | Outpatient (REF) | payer OTHER, SELFPAY ==
--- NOTE | ~2025-03-23 | US_ITS ---
EXAMINATION: US PELVIS CLINICAL INFORMATION: Leiomyomata, uterus. COMPARISON: December 28, 2024. TECHNIQUE: Ultrasound of the pelvis is performed using both transabdominal and transvaginal transducers along with Doppler. Transvaginal imaging is performed due to inadequate visualization transabdominally. FINDINGS: Uterus: The uterus is anteversion flexion and measures 9 x 6 x 8 cm. And volume: 195 cc. The double wall endometrial thickness is 5 mm. There is an intrauterine contraceptive device within the uterine cavity without extension into the endocervical canal. There is a 4.4 x 2.7 x 3.3 cm heterogeneous predominantly hypoechoic soft tissue mass centered in the right fundus/cornua. There is a 1.3 x 1.0 x 1.0 cm hypoechoic lesion within left body myometrium. Adnexa: The ovaries are identified with the flow on color Doppler interrogation.. No free fluid in the cul-de-sac. Right ovary measures 5 x 3 x 3 cm. Volume: 24 cc. There is a 3.9 cm ovoid shaped anechoic lesion without gross nodular component. There is flow in the periphery of the lesion. Left ovary measures 3 x 2 x 1 cm. Volume: 4 cc. No gross solid or cystic lesion. US/US pelvic and transvaginal IMPRESSION: Leiomyomata uterine, slightly larger since prior exam. Intrauterine contraceptive device in good position. 3.9 cm cystic lesion, right ovary. No ovarian torsion.. Electronically signed by: Dante Reece MD 03/23/2025 03:44 PM EDT
--- OUTSIDE RECORDS SUMMARY | 2025-03-23 18:05 | XMS_ITS | Clinical Summary ---
Author Organization [facility] Address [address] [place] [address] Care Team Providers Care Starting Gate Driver Name Role Phone Lashanda Owens MD Primary [...] Cancer Screening: P ap Smear 07/08/2021 07/08/2018 Depression Screening 07/01/2024 COVID-19 Vaccine (1 - 2023-2 5 season) 2025 Influenza Vaccine (#1) 2025 HIB Vaccines Aged [...] RESULTING AGENCY - 07/21/2018 2:41 PM EST [id number] THINPREP PAP AND CELL BLOCK: NEGATIVE FOR [...] Z12.4, Z01.419 CB 07/10/18 us Viri Smith [facility] CYTOLOGY ORDERABLES Final R esult HISTORICAL TESTING LAB RESULTING AGENCY from Last 3 Months or Most Recently Relevant to Health Maintenance Care Teams Starting Gate Driver Relationship Specialty Start Date End Date Lashanda Owens MD PCP - General Internal Medicine 07/08/18
--- OUTSIDE RECORDS SUMMARY | 2025-03-23 18:05 | XMS_ITS | Clinical Summary ---
Author Organization [facility] Address [address] [place] [phone] Phone Care Team Providers Care Network Technician Name Role Phone Unavailable Primary Care Provider [...] of 3 - 19+ 3-dose series) 2001 HPV Vaccines (1 - 3-dose SCD M series) 2009 Influenza Vaccines (#1) 2025 COVID-19 Vaccine (1 - 2023-2 5 season) 2025 HIB Vaccines Aged Out No longer [...]
== END 2025-03-23 15:05 | disposition home or self-care (01) ==
LOC: HO.US 15:04
PROVIDERS: PCP Internal Medicine; Visit Provider Obstetrics & Gynecology
DX: D25.9 Leiomyoma of uterus, unspecified (principal)
CPT/HCPCS: 76830; 76856

== ENCOUNTER → 2025-03-23 15:07 | Outpatient (BNV) | payer OTHER, SELFPAY | PROVIDERS: PCP Internal Medicine; Visit Provider Radiology Diagnostic Radiology | DX: D25.9 Leiomyoma of uterus, unspecified (principal) | CPT/HCPCS: 76830; 76856 ==

== ENCOUNTER 2025-05-25 07:41 | Outpatient (REF) | payer OTHER, SELFPAY ==
--- OUTSIDE RECORDS SUMMARY | 2025-05-25 07:43 | XMS_ITS | Clinical Summary ---
Author Organization [facility] Address [address] [place] [id number] Phone Care Team Providers Care Senior Gamemaster Name Role Phone Unavailable Primary Care Provider [...] 2009 Influenza Vaccines (#1) 2025 COVID-19 Vaccine ( - 2024-2 6 season) 2025 HIB Vaccines Aged Out No [...]
--- OUTSIDE RECORDS SUMMARY | 2025-05-25 07:44 | XMS_ITS | Clinical Summary ---
Author Organization [facility] Address [address] [place] [address] Care Team Providers Care Barrel Tester And Drainer Name Role Phone Lashanda Owens MD Primary Care Provider [phone] Surgical History Surgery Date Site/Laterality Comments SECTION [...] (1 - 3-dose SCD M series) 2009 DTaP,Tdap,and Td Vaccines (2 - Td or Tdap) 07/24/2020 07/24/2010 Cervical Cancer Screening: P ap Smear 07/08/2021 07/08/2018 Depression Screening 07/01/2024 COVID-19 Vaccine (1 - 2024-2 6 season) 2025 Influenza Vaccine (#1) 2025 RSV Immunization Adult Patie nts (1 - 1-dose 75+ series) 2057 HIB Vaccines Aged Out No longer eligi [...] RESULTING AGENCY - 07/21/2018 2:41 PM EST [id number] THINPREP PAP AND CELL BLOCK: NEGATIVE FOR SQUAMOUS INTRAEPITHELIAL LESION AND MALIGNANCY . CLUE CELLS ARE PRESENT. HYPERKERATOSIS MACKENZIE NAVARRO CT(ASCP) (CASE SCREENED 07 14 2018) ALEXI CHRISTOPHER M.D. , PATHOLOGIST (CASE ELECTRONICALLY SIGNED 07 18 2018) RESULT OF APTIMA HIGH RISK HPV ASSAY: HIGH RISK HPV: NEGATIVE (SEROTYPES 16,18,31,33,35,39,45,51,52,56,58,59,66,68) COMPLETED ON 2018-07-10 ADEQUACY: SATISFACTORY ENDOCERVICAL/TRANSFORMATION ZONE COMPONENT ABSENT. SOURCE: THINPREP PAP HPV ANY DX: REFLEX 16 AND 18, CERVICAL, IMAGED CLINICAL INFORMATION: HPV ANY DIAGNOSIS. Z12.4, Z01.419 07/10/18 Viri Smith [facility] CYTOLOGY ORDERABLES Final R esult HISTORICAL TESTING LAB RESULTING AGENCY from Last 3 Months or Most Recently Relevant to Health Maintenance Care Teams Barrel Tester And Drainer Relationship Specialty Start Date End Date Lashanda Owens MD PCP - General Internal Medicine 07/08/18
[2025-05-25 10:13] LABS: MANUAL DIFF FLAG NO
[2025-05-25 10:22] LABS: Hematocrit 38.3 % (37.0-47.0); Hemoglobin 12.8 g/dl (12.0-16.0); Imm Gran Abs Auto 0.01 X10*3/uL (0.00-0.03); Imm Gran Pct Auto 0.2 % (0.0-0.4); Lymphocytes Absolute Auto 1.5 X10*3/uL (1.2-4.9); Mean Corpuscular HGB Conc 33.4 g/dl (31.0-35.0); Mean Corpuscular Hemoglobin 30.8 pg (27.0-33.0); Mean Corpuscular Volume 92.1 fL (80.0-98.0); NRBC Abs Auto 0.000 X10*3/uL (0.0-0.012); NRBC Pct Auto 0.0 /100WBC (0.0-0.2); Platelet Count 207 X10*3/uL (160-400); Red Blood Count 4.16 X10*6/uL (4.20-5.50); White Blood Count 4.1 X10*3/uL (4.8-10.8)
[2025-05-25 11:01] LABS: Alanine Aminotransferase 9 U/L (0-31); Albumin Level 4.4 g/dL (3.5-5.0); Alkaline Phosphatase 54 U/L (39-117); Anion Gap 8 (12-20); Aspartate Amino Transferase 17 U/L (5-31); Blood Urea Nitrogen 7 mg/dL (9-16); Calcium 9.2 mg/dL (8.4-10.2); Carbon Dioxide 29 mmol/L (22-29); Chloride 108 mmol/L (96-108); Cholesterol 143 mg/dL (<200); Estimated Glomerular Filt Rate > 60; HDL Cholesterol 61 mg/dL (>40); Iron 107 mcg/dL (30-160); Percent Iron Saturation 35 % (15-50); Potassium 3.8 mmol/L (3.3-5.1); Sodium 141 mmol/L (135-145); Total Iron Binding Capacity 302 mcg/dL (228-428); Total Protein 6.6 g/dL (6.5-8.0); Triglycerides 53 mg/dL (<150); Unsaturated Iron Binding 195 ug/dL
[2025-05-25 11:12] LABS: Folate 7.2 ng/mL (> or = 4.0); Vitamin B12 152 pg/mL (200-900)
[2025-05-25 11:16] LABS: Ferritin 23 ng/mL (10-250)
== END 2025-05-25 07:42 | disposition home or self-care (01) ==
LOC: HO.HMGCLDS 07:41
PROVIDERS: PCP Internal Medicine; Visit Provider Physician Assistant Surgical
DX: Z13.6 Encounter for screening for cardiovascular disorders (principal); Z13.1 Encounter for screening for diabetes mellitus; Z13.29 Encounter for screening for other suspected endocrine disorder; E55.9 Vitamin D deficiency, unspecified; E53.8 Deficiency of other specified B group vitamins; E50.9 Vitamin A deficiency, unspecified; Z98.84 Bariatric surgery status
CPT/HCPCS: 36415; 80053; 80061; 82306; 82607; 82728; 82746; 83036; 83525; 83540; 84425; 84443; 84590; 84630; 85025; 86140